=== PATIENT | female | born 1955 | race Caucasian/White ===

== ENCOUNTER 2019-06-13 06:51 | Inpatient (IN) | payer OTHER, SELFPAY ==
[2019-06-13] VITALS (8 sets, daily range): BP systolic 128–145; BP diastolic 65–85; PULSE 79–96; RESP 16–18; TEMP 36.8–37.6; O2SAT 95–99; BMI 21.4; BMI 21.5; BMI 22.4
--- NOTE | 2019-06-13 07:11 | US_ITS ---
STUDY: ABDOMINAL ULTRASOUND - RIGHT UPPER QUADRANT REASON FOR VISIT: Female, 64 years old PAIN TECHNIQUE: Ultrasound evaluation of the right upper quadrant was performed with real-time and static carrizales-scale imaging. TECHNICAL QUALITY: Adequate. COMPARISON: None. FINDINGS: Liver: The liver measures 11.4 cm. There is normal echogenicity of the liver. The bile ducts are within normal limits. There is hepatic color flow. The direction of portal flow is hepatopetal. There is no demonstrated mass lesion. Gallbladder: Normal distended gallbladder. The gallbladder wall measures 2.0 mm. There is a negative sonographic Huber''s sign. There is no pericholecystic fluid. There are no gallstones. Sludge is seen within the gallbladder lumen. Common Bile Duct (C.B.D.): The common bile duct measures 5.1 mm. Pancreas: Normal size of the head, body and tail of the pancreas. There is normal echogenicity of the pancreas. There is no demonstrated pancreatic mass or cyst. Right Kidney: Normal size of the right kidney. The right kidney measures 9.7 cm x 4 cm x 3.6 cm. Normal renal cortex. The right cortex measures 1.2 cm. There is a 1.1 cm x 1.1 cm x 1.1 cm cyst in the midportion. Adjacent to this, there is a 1.4 cm x 0.8 cm x 1.1 cm cyst. There is also evidence of multiple small intrarenal calculi the largest measuring 0.7 cm x 1.3 cm x 0.6 cm. There is no right hydronephrosis. US/Gallbladder IMPRESSION: Sludge is seen within the gallbladder lumen. Right renal cysts. Multiple small nonobstructing right intrarenal calculi. Electronically Signed: Kole Mann, at 8:58 EST , Service support ,
--- NOTE | 2019-06-13 07:12 | ED.VIS.GEN ---
History of Present Illness Chief Complaint: Abd Pain Informant: Patient, Significant Other Narrative: Patient presents for evaluation of right upper abdominal pain. She tells me that over the weekend she believes she was passing a kidney stone that she had pain on her left flank eventually moved to the periumbilical region and finally resolved leaving behind some right upper quadrant pain. She also notes that it travels to her epigastrium. She states she normally does not eat very much and she definitely has not felt like eating over the past 4 days. No fevers. No vomiting but nausea. She notes a decrease in her bowel movements but reports them still to be normal. She has had a prior tubal ligation but no other abdominal surgeries. History of hypertension, chronic kidney disease (last creatinine 1.83), and kidney stones. Patient has a bulk of medical history with her nausea throughout I see that she has a history of hypercalcemia. Last lab that I see in there shows a calcium level about 11-1/2. Past Medical History - Allergies and Home Meds Allergies/Adverse Reactions: Allergies acetaminophen [From Tylenol] Adverse Reaction (Verified 06/13/19 07:39) Other rapid heart rate Primary Care Physician: Tavo Reynoso,Out of [NON-STAFF] - Smoking Status: Never smoker Review of Systems General: Denies: Chills, Fever, Sweats Eyes: Denies: Visual changes - bilaterally, Diplopia ENT: Denies: Rhinorrhea, Sore throat Cardiovascular: Denies: Chest pain, Palpitations Respiratory: Denies: Dyspnea, Cough, Dyspnea on exertion Gastrointestinal: Reports: Abdominal pain, Nausea. Denies: Vomiting, Diarrhea, Melena, Hematochezia Genitourinary: Denies: Dysuria, Hematuria, Frequency Musculoskeletal: Denies: Back pain, Extremity Pain Skin: Denies: Rash, Wounds Neurological: Denies: Headache, Weakness, Numbness Physical Exam Vital Signs/Narrative: Vital Signs Temp Pulse Resp BP Pulse Ox 06/13/19 06:56 98.2 F 96 16 140/85 H 99 Inital Vital Signs reviewed: Yes General: Well nourished, Well developed, No Acute Distress Head: Normocephalic, Atraumatic Eyes: Perrl, EOMI ENT: Moist mucous membranes, No rhinorrhea Neck: Supple, Nontender Cardiovascular: Regular rate, Regular rhythm, No murmurs Respiratory: No distress, CTA bilaterally, Chest nontender Abdomen: Soft, Nondistended, Normal bowel sounds, Tender, Guarding, Rebound tenderness - Diffuse abdominal pain to palpation but most significant pain and guarding in the right upper quadrant Back: Nontender, Normal Inspection Extremities: Nontender, No edema Skin: Normal color, No rash Neurological: Alert, Oriented x3, Cranial nerves II-XII grossly intact, Normal Strength, Normal Sensation Psychological: Normal affect, Normal Mood Diagnostic/Tx/Re-eval - EKG Initial EKG Interpretation: Sinus Rhythm - Sinus rhythm at a rate of 83 without ectopy. There are no concerning features of ACS. - Medical Decision Making Patient's labs returned with a significantly elevated calcium level at about 13.5. EKG is negative. Gallbladder ultrasound shows sludge but no pericholecystic fluid and negative Huber's. CT of the pelvis demonstrates a 4.3 cm infrarenal aortic aneurysm. In speaking with the patient she now recalls that in 2015 she was admitted at [facility] with hypercalcemia. We are attempting to get records from that time.. Creatinine is 2 today which is off of her baseline of around 1.8 based on the labs she brought with her from December 2018. Patient received IV fluids and Lasix. Our plan is admission. Family is in agreement with this. ED Disposition - Plan for ED Patient: Disposition: Acute Care Hospital [facility] Diagnosis: Hypercalcemia, Abdominal pain Referrals: [facility] Doctor,Out of [NON-STAFF] -
[2019-06-13] MEDS: Morphine 2 MG/ML Syringe IV (07:31)
[2019-06-13] MEDS: Ondansetron 4 MG/2 ML Vial IV (07:32)
[2019-06-13 07:38] LABS: Mucous, Urine 0 SEEN /hpf (<or=2+); Red Blood Cells-Urine 0 SEEN /hpf (0-5); Squamous Epithelial Cells - UA 0 SEEN /hpf (5-10); White Blood Cells 0 SEEN /hpf (0-5)
[2019-06-13 07:41] LABS: Absolute Lymphocyte Count 0.85 X10^3/uL (0.83-4.51); Basophil# 0.01 X10^3/uL; Basophil% 0.1 % (0-1); Eosinophil# 0.13 X10^3/uL; Eosinophils% 1.6 % (0-5); Hematocrit 37.9 % (37-47); Hemoglobin 12.6 g/dL (12.0-15.0); Lymphocyte # 0.85 X10^3/ul (4.0); Lymphocyte % 10.1 % (19-41); Mean Corp Hgb Conc 33.2 g/dL (32-36); Mean Corpuscular Hgb 30.2 pg (27.0-32.0); Mean Corpuscular Volume 90.9 fL (81-99); Mean Platelet Vol. 9.4 fl (6.2-12.0); Monocyte# 0.35 X10^3/uL; Monocyte% 4.2 % (0-10); NRBC Flagged by Analyzer 0 % (0-5); Neutrophil % 83.5 % (47-70); Platelet Count 238 K/mm3 (150-450); RBC Distribution Width CV 11.5 % (11.6-14.6); RBC Distribution Width SD 38.5 fl (35.1-43.9); Red Blood Count 4.17 M/mm3 (4.2-5.4); White Blood Count 8.4 K/mm3 (4.4-11.0)
[2019-06-13 07:55] LABS: Color, Urine Yellow (Yellow); Glucose, Dipstick Normal (Normal); Ketone-Dipstick Negative (Negative); Leukocyte Esterase-Dipstick Negative /ul (Negative); Nitrite-Dipstick Negative (Negative); Occult Blood-Urine 25 /ul (Negative); Protein-Dipstick 30 mg/dl (Negative); Specific Gravity, Urine 1.015 (1.002-1.030); Urine Bilirubin Dipstick Negative (Negative); Urine Clarity Sl. Cloudy (Clear); Urine Urobilinogen Normal (Normal)
[2019-06-13 08:01] LABS: Bacteria RARE /hpf (None Seen)
[2019-06-13 08:02] LABS: AST(SGOT) 17 U/L (15-37); Alanine Aminotransfer ALT/SGPT 18 U/L (13-56); Alkaline Phosphatase 100 U/L (45-117); Anion Gap 6 (5-15); BUN 28 mg/dL (7-18); Bilirubin, Direct 0.22 mg/dL (0.00-0.30); Calcium,Total 13.3 mg/dL (8.5-10.1); Chloride 99 mmol/L (98-107); EST Glomerular Filtration Rate 27 mL/min (>60); Est Glom Filt Rate - Afr Amer 32 mL/min (>60); Globulin 4.9 g/dL (2.2-4.2); Glucose 98 mg/dL (74-106); Lipase 91 U/L (73-393); Potassium 3.7 mmol/L (3.5-5.1); Protein, Total 7.9 g/dL (6.4-8.2); Sodium Level 133 mmol/L (136-145)
[2019-06-13] MEDS: 0.9% Normal Saline 1,000 ML 125 ML IV ×2 (08:16→11:56)
--- NOTE | 2019-06-13 08:23 | CT_ITS ---
STUDY: CT ABDOMEN AND PELVIS WITHOUT CONTRAST REASON FOR EXAM: Female, 64 years old. UPPER ABD PAIN, CKD, HX AAA RADIATION DOSAGE (If Supplied By Facility): CTDIvol = ( 6.25 ) mGy, DLP = ( 293.35 ) mGycm TECHNIQUE: Transaxial images were obtained from the dome of the diaphragm to the symphysis pubis without oral contrast, and without intravenous contrast. Sagittal and coronal images were reconstructed. Individualized dose optimization techniques were used for this CT. COMPARISON: None. FINDINGS: Mild increased linear markings at the lung bases suggestive of linear atelectasis and/or scarring. Coronary artery calcification. Normal liver. Findings suggestive of sludge or multiple tiny gallstones along the dependent portion of the gallbladder. Normal spleen. Normal pancreas. Normal bilateral adrenal glands. There are multiple nonobstructive right intrarenal calculi. There is a 2.6 cm x 2.1 cm cyst in the medial aspect of the kidney. There is marked atrophy of the left kidney with multiple left intrarenal calcifications. Normal visualized stomach. Normal small intestine. Normal colon. The appendix is visualized and appears normal. There is diffuse atherosclerotic calcification of the abdominal aorta. There is evidence of a fusiform infrarenal abdominal aortic aneurysm with a transverse dimension of 4.34 cm. Dilatation of the common iliac arteries bilaterally. Normal inferior vena cava. Normal retroperitoneum. Normal urinary bladder. There is a 7.1 cm x 7.5 cm soft tissue mass containing fat in the left adnexa. This is in keeping with the dermoid cyst. Phleboliths are seen within the pelvis. Normal abdominal wall. Normal osseous structures. CT/Abdomen/Pelvis without Cont IMPRESSION: Sludge or tiny gallstones within the gallbladder lumen. Marked atrophy of the left kidney. Bilateral renal calcifications and cyst in the right kidney. 7.1 cm x 7.5 cm mixed soft tissue density in the left adnexa containing fat as well. A dermoid should BE ruled out. 4.3 cm fusiform infrarenal abdominal aortic aneurysm. Electronically Signed: Kole Mann, at 9:08 EST , Service support ,
--- NOTE | 2019-06-13 08:25 | EKG12_ITS ---
Test Reason : ABD PAIN Blood Pressure : / mmHG Vent. Rate : 083 BPM Atrial Rate : 083 BPM P-R Int : 158 ms QRS Dur : 098 ms QT Int : 344 ms P-R-T Axes : 068 024 035 degrees QTc Int : 404 ms Normal sinus rhythm Normal ECG Confirmed by DEAN EUCEDA, JOSEPH ([id number]), research editor LEVAR VILLANUEVA ([id number]) on 06/14/2019 8:02:12 AM Referred By: Balta Gayle Confirmed By:MELANY MORAN MD
[2019-06-13] MEDS: 0.9% Normal Saline 1,000 ML 999 ML IV (09:00)
--- NOTE | 2019-06-13 09:52 | NURSING ---
DR CAROLE AZAR
[2019-06-13] MEDS: Furosemide 40 MG/4 ML Vial IV (10:00)
--- NOTE | 2019-06-13 10:03 | NURSING ---
PCU HYPERCALCEMIA CAROLE
--- NOTE | 2019-06-13 10:04 | NURSING ---
[id number] CALLED [facility], TALKED TO GORDON. ASKED FOR CALCIUM LEVELS FROM ABOUT 4 YRS AGO.
[2019-06-13] MEDS: amLODIPine 5 MG Tablet PO (11:56)
--- NOTE | 2019-06-13 12:31 | US_ITS ---
STUDY: ULTRASOUND OF THE FEMALE PELVIS - COMPLETE REASON FOR EXAM: Female, 64 years old. LEFT ADNEXAL CYSTIC AREA SEEN ON CT LMP: TECHNIQUE: Transabdominal TECHNICAL QUALITY: Adequate. COMPARISON: CT scan of the same day. FINDINGS: The CT scan of the same day was reviewed and it shows a 7.5 cm pelvic mass characteristic of dermoid. In these cases, ultrasound does not add any more accurate information. Confirmation of 7.6 cm mixed echogenicity mass of the left ovary/adnexa consistent with the known dermoid. The uterus is anteverted and is in a midline position. The uterus measures 6.2 x 4.8 x 2.8 cm. Normal uterine cervix. The endometrium measures 4 mm in thickness, and is hyperechoic. There is no demonstrated endometrial mass. There is no demonstrated myometrial mass. I.U.D. - The patient does not have an I.U.D. The right ovary is visualized. The right ovary measures 2.6 x 2.6 x 1.6 cm. There is no right ovarian cyst or ovarian mass. There is no visualized right adnexal mass or complex lesion. There is normal arterial and normal venous vascularity. There is no fluid in the cul-de-sac. Normal bladder contour. US/Pelvic (Non ) IMPRESSION: Confirmation of a 7.6 cm mixed echogenicity mass of the left ovary/adnexa consistent with the CT scan diagnosis of dermoid. In general, the CT appearance is characteristic and ultrasound is less specific and accurate. Normal appearance of the uterus and right ovary. Electronically Signed: Yang Russ MD at 15:22 EST , Service support ,
--- NOTE | 2019-06-13 12:32 | PCM.HP.STD ---
History of Present Illness Date of Admission: 06/13/19 Chief Complaint: abdominal pain The patient is a 64 year old F who was in normal state of health and then had abdominal pain. Pain was consistent with when she has had kidney stones before. Presented to the emergency room and underwent right upper quadrant ultrasound as well as CAT scan. CAT scan did not show any stones in the ureter but did show bilateral renal calcifications and cyst in the right kidney. A 7.1 x 7.5 cm mixed soft tissue density in the left adnexa containing fat. It did show a 4.3 cm fusiform infrarenal abdominal aortic aneurysm. Additionally, patient had lab work that showed a calcium of 13.3. Patient received Lasix as well as IV fluids. Patient subsequent being admitted for hypercalcemia. Patient is not noticing any tremors, no confusion. Patient has had a history of hypercalcemia without defined cause. Has been admitted for that at least couple times. Patient denies any malignancy though denies ever having had any kind of screening, such as colonoscopy or mammograms. Patient, when brought up, is unaware of any hyperparathyroidism. [] Past Medical History Medical History: Medical History (Last Updated 06/13/19 @ 12:[address] Blata Gayle, DO) Hypercalcemia E83.52 HTN (hypertension) I10 Allergies acetaminophen [From Tylenol] Adverse Reaction (Verified 06/13/19 07:39) Other rapid heart rate Home Medications: Ambulatory Orders Medication Instructions Recorded Amlodipine [Norvasc] 5 mg PO DAILY 06/13/19 Garlic 1 ea PO DAILY 06/13/19 Lactobacillus Combo No.10 PO BID 06/13/19 [Probiotic] Losartan Potassium [Cozaar] 50 mg PO DAILY 06/13/19 Taiban-3/Dha/Epa/Fish Oil [Taiban 3 1 ea PO BID 06/13/19 500 Softgel] Lives: Spouse/ Significant Other Smoking Status: Never smoker Tobacco Use: Non-smoker Alcohol: None Drugs: None - *Family History Maternal History Items: - - no malignancy Review of Systems Constitutional: Denies: Anorexia, Chills, Fever, Night Sweats Eyes: Denies: Blurred vision, Double vision HEENT: Denies: Head Aches, Sinus Congestion, Sinus Drainage Cardiovascular: Denies: Chest Pain, Palpitations Respiratory: Denies: Cough, Shortness of breath at rest, Sputum production Gastrointestinal: Reports: Abdominal Pain. Denies: Nausea, Vomiting Genitourinary: Denies: Dysuria Musculoskeletal: Denies: Joint Pain, Joint Tenderness Hematologic/ Lymphatic: Denies: Easy Bruising, Easy Bleeding, Hx of blood clot Comment: All review of systems were negative except as mentioned above in the history of present illness and the other review of systems. VTE Information - Inpt Only VTE Present on Admission: No VTE Mechan Device Prophylaxis: None VTE Pharm Prophylaxis ordered?: Yes Patient Problems: Active and Suspected Problems Hypercalcemia (Acute) Abdominal pain (Acute) - Physical Exam Vitals/I&O's: Vital Signs Temp Pulse Resp BP Pulse Ox 36.9 C 86 16 128/73 H 99 06/13/19 11:00 06/13/19 11:14 06/13/19 11:00 06/13/19 11:00 06/13/19 11:00 Oxygen Delivery Method Room Air Weight: 61 kg Body Mass Index (BMI) 22.4 Intake and Output for Last 24 Hours 06/11/19 06/12/19 06/13/19 23:59 23:59 23:59 Intake Total 1581.67 / 1581.67 Balance 1581.67 / 1581.67 General: Alert, Cooperative, No apparent distress, Well developed, Well nourished HEENT: Atraumatic, Normocephalic Oral: Moist Mucosa, No Gingival or Mucosal Lesions/ Ulcerations Neck: No Nodes, Thyroid Normal Size and Texture Lungs: Clear to auscultation, Normal air movement, No rhonchi, No wheeze, No rales Cardiovascular: Regular rate, Regular Rhythm, Normal S1, Normal S2, No murmurs Abdomen: Bowel Sounds Present, Soft, Non Tender, Non-Distended, No Hepato-splenomegaly Extremities: No edema, No Calf Tenderness Skin: No rashes, No breakdown Musculoskeletal: No Tenderness to Palpation of Joints or Extremities, No Muscle Wasting Neurological: Coordination normal, - - DTR 3/4 throughout Psych/Mental Status: Normal Affect, Appropriate Laboratory Results 06/13/19 07:20: WBC 8.4, RBC 4.17 L, Hgb 12.6, Hct 37.9, MCV 90.9, MCH 30.2, MCHC 33.2, RDW Std Deviation 38.5, RDW Coeff of David 11.5 L, Plt Count 238, MPV 9.4, Immature Gran % (Auto) 0.500, Neut % (Auto) 83.5 H, Lymph % (Auto) 10.1 L, Aurora % (Auto) 4.2, Eos % (Auto) 1.6, Baso % (Auto) 0.1, Absolute Neuts (auto) 7.0, Absolute Lymphs (auto) 0.85, Nucleated RBC % 0 06/13/19 07:20: Sodium 133 L, Potassium 3.7, Chloride 99, Carbon Dioxide 28.0, Anion Gap 6, BUN 28 H, Creatinine 2.00 H, Estim Creat Clear Calc 26.60, Est GFR (MDRD) Af Amer 32 L, Est GFR (MDRD) Non-Af 27 L, BUN/Creatinine Ratio 14.0, Glucose 98, Calcium 13.3 H*, Total Bilirubin 0.90, Direct Bilirubin 0.22, AST 17, ALT 18, Alkaline Phosphatase 100, Total Protein 7.9, Albumin 3.0 L, Globulin 4.9 H, Lipase 91 06/13/19 07:20: PTH Intact 54.0 06/13/19 07:37: Urine Color Yellow, Urine Clarity Sl. Cloudy, Urine pH 6.0, Ur Specific [place] 1.015, Urine Protein 30 H, Urine Glucose (UA) Normal, Urine Ketones Negative, Urine Occult Blood 25 H, Urine Nitrite Negative, Urine Bilirubin Negative, Urine Urobilinogen Normal, Ur Leukocyte Esterase Negative, Urine RBC 0 SEEN, Urine WBC 0 SEEN, Ur Squamous Epith Cells 0 SEEN, Urine Bacteria RARE, Urine Mucus 0 SEEN Current Medications Acetaminophen (Tylenol) 650 mg PO Q6H PRN PRN PRN Reason: Pain Score 1-10/Temp > 100.7 F Amlodipine Besylate (Norvasc) 5 mg PO DAILY [facility] Last Admin: 06/13/19 11:56 Dose: 5 mg Documented by: Enoxaparin Sodium (Lovenox) 30 mg SC DAILY [facility] Last Admin: 06/13/19 11:56 Dose: Not Given Documented by: Glucagon () 1 mg IM .X1 PRN PRN Reason: Hypoglycemia Sodium Chloride () 1,000 mls @ 200 mls/hr IV .Q5H [facility] Last Admin: 06/13/19 11:56 Dose: 125 mls/hr Documented by: Sodium Chloride () 250 mls @ 15 mls/hr IV .[id number] PRN PRN Reason: Saline Flush Sodium Chloride () 250 mls @ 15 mls/hr IV .[id number] PRN PRN Reason: Additional IVPB Infusion Dextrose (Dextrose 10%-Water) 250 mls @ 999 mls/hr IV .Q16M PRN; Protocol PRN Reason: HYPOGLYCEMIA Sodium Chloride () 10 - 40 ml IV UD PRN PRN Reason: SALINE FLUSH Assessment/Plan All Active Problems Hypercalcemia (Acute) Abdominal pain (Acute) 1. Hypercalcemia acute on chronic. Reviewed records from [facility] where the patient, back in 2015 had levels that were 11 and 12. Patient had also followed up in [place] with a marking machine tender where her potassium levels were around 11 which was felt to be chronic. Back in 2018, patient had PTH which was 65.9 which was within the normal reference range. At that time she also had a urine protein of 27.1, no reference range provided further labs. Patient did receive IV fluids and furosemide in the emergency room. We will continue with IV fluids at 200 cc/h. Discussed with Dr. Gomez, of nephrology, recommended a UPEP, SPEP, 125 hydroxy vitamin D, 25 hydroxy vitamin D. Did explain to the patient that she will require further routine screening test, such as colonoscopy and mammogram but to be done as outpatient. Is unclear the etiology of her hypercalcemia. Previously had been due to vitamin D supplementation but patient denies taking any further vitamin D. Patient was taking multivitamin but stopped about 6 months ago. 2. Acute kidney injury: IV fluids. Monitor. 3. Adnexal mass: May be a dermoid cyst. Check a pelvic ultrasound. Follow-up with gynecology as outpatient. 4. VTE prophylaxis: Moderate risk. Enoxaparin. 5. Advanced care planning: Discussed with the patient and her . Patient wishes to be full CODE STATUS at this time. Inpatient E&M: [id number] Init Hosp L3
[2019-06-13 13:55] LABS: Anion Gap 5 (5-15); BUN 28 mg/dL (7-18); BUN/Creat Ratio 14.4 RATIO (10-20); Calcium,Total 12.5 mg/dL (8.5-10.1); Chloride 101 mmol/L (98-107); Creatinine, Serum 1.94 mg/dL (0.55-1.02); EST Glomerular Filtration Rate 28 mL/min (>60); Est Glom Filt Rate - Afr Amer 33 mL/min (>60); Estimated Creatinine Clearance 26.36 ml/min; Glucose 131 mg/dL (74-106); Potassium 3.4 mmol/L (3.5-5.1); Sodium Level 136 mmol/L (136-145)
[2019-06-13 13:59] LABS: Vitamin D,25 Hydroxy 28.4 ng/mL
[2019-06-13] MEDS: oxyCODONE 5 MG Tablet PO (14:20)
--- NOTE | 2019-06-13 15:53 | CON.PCM_ITS ---
Consultation - Renal 06/13/19 PCP/ Referring MD: Requesting physician: Balta Gayle MD Primary care physician: MAE FATIMA Reason for Consultation:: hypercalcemia, CKD stage 4 - History of Present Illness History of Present Illness: The patient is a 64 year old F admitted for left flank pain radiating down to left groin. Denied hematuria, dysuria. Thinks she may have passed a stone. She has a history of kidney stones, CKD and hypercalcemia hospitalized in 2016 in [place] for it. She thinks she may have had lithotripsy 32 years ago but not sure of details. She had CKD stage 4 back in 2016 improved to CKD stage 3. Creatinine 2.0 on admit to 1.94 today with iv hydration. PTH 54 during current admission with vit D 25 OH 28. Vit D1.25 pending. She states she loves salt. She was seen by diesel engine fitter Dr. Preciado in [place], last seen 2 years ago. Etiology for hypercalcemia was thought due to vit D supplements. She has not been on supplements since. She is on amlodipine and losartan for hypertension. CAT scan done in ER did not show any stones in the ureter but did show bilateral renal calcifications and cyst in the right kidney. A 4.3 fusiform AAA noted. She had a whole body CT years ago where the AAA was reported. Blood work showed calcium of 13.3 treated with Lasix and V fluids. Patient is not noticing any tremors, no confusion. Denies polyuria, polydipsia. Denies history of malign mark. - Allergies Allergies: Allergies acetaminophen [From Tylenol] Adverse Reaction (Verified 06/13/19 07:39) Other rapid heart rate - Current Medications Current Medications: Current Medications Acetaminophen (Tylenol) 650 mg PO Q6H PRN PRN PRN Reason: Pain Score 1-10/Temp > 100.7 F Amlodipine Besylate (Norvasc) 5 mg PO DAILY [facility] Last Admin: 06/13/19 11:56 Dose: 5 mg Documented by: Enoxaparin Sodium (Lovenox) 30 mg SC DAILY [facility] Last Admin: 06/13/19 11:56 Dose: Not Given Documented by: Glucagon () 1 mg IM .X1 PRN PRN Reason: Hypoglycemia Sodium Chloride () 1,000 mls @ 200 mls/hr IV .Q5H [facility] Last Infusion: 06/13/19 13:47 Dose: 200 mls/hr Documented by: Sodium Chloride () 250 mls @ 15 mls/hr IV .[id number] PRN PRN Reason: Saline Flush Sodium Chloride () 250 mls @ 15 mls/hr IV .[id number] PRN PRN Reason: Additional IVPB Infusion Dextrose (Dextrose 10%-Water) 250 mls @ 999 mls/hr IV .Q16M PRN; Protocol PRN Reason: HYPOGLYCEMIA Oxycodone HCl (Oxyir) 5 mg PO Q4H PRN PRN PRN Reason: Pain Score 4-10/10 Last Admin: 06/13/19 14:20 Dose: 5 mg Documented by: Sodium Chloride () 10 - 40 ml IV UD PRN PRN Reason: SALINE FLUSH - Social History Smoking Status: Never smoker Alcohol: None Drugs: None - Family History Maternal History Items: - - no malignancy Paternal History Items: Hypertension Review of Systems Constitutional: Reports: Chills. Denies: Anorexia, Fever, Weakness Eyes: Denies: Blurred vision Cardiovascular: Reports: Edema. Denies: Chest Pain, Syncope Respiratory: Denies: Cough, Shortness of Breath Gastrointestinal: Reports: Abdominal Pain. Denies: Constipation, Diarrhea, Nausea, Vomiting Genitourinary: Reports: - - left flank pain. Denies: Dysuria, Hematuria Musculoskeletal: Reports: Back Pain - left flank Skin: Denies: Rash Neurological: Denies: Balance problems, Tremor, Seizures Psychiatric: Denies: Anxiety, Depression Endocrine: Denies: Polydipsia, Polyuria Hematologic/ Lymphatic: Denies: Anemia Patient Problems: Active and Suspected Problems (Last Updated 06/13/19 @ 12:[address] Balta Gayle, DO) Hypercalcemia (Acute) Abdominal pain (Acute) - Physical Exam Vitals/I&O's: Vital Signs Temp Pulse Resp BP Pulse Ox 98.5 F 89 16 128/73 H 99 06/13/19 11:00 06/13/19 15:05 06/13/19 11:00 06/13/19 11:00 06/13/19 11:00 Oxygen Delivery Method Room Air Weight: 61 kg Body Mass Index (BMI) 22.4 Intake and Output for Last 24 Hours 06/11/19 06/12/19 06/13/19 23:59 23:59 23:59 Intake Total 181.92 / 181.92 Balance 1811. / 1811. General: Alert, Oriented x3, Cooperative, No apparent distress HEENT: Atraumatic, PERRLA, EOMI Neck: Supple Lungs: Clear to auscultation Cardiovascular: Regular rate Abdomen: Bowel Sounds Present, Soft, Non Tender, Non-Distended Extremities: No edema Skin: No rashes Musculoskeletal: No Tenderness to Palpation of Joints or Extremities, No Muscle Wasting Neurological: Cranial nerves II-XII grossly intact Psych/Mental Status: Normal Affect, Appropriate, Alert and oriented to time, place, person, mood and affect Laboratory Results 06/13/19 07:20: WBC 8.4, RBC 4.17 L, Hgb 12.6, Hct 37.9, MCV 90.9, MCH 30.2, MCHC 33.2, RDW Std Deviation 38.5, RDW Coeff of David 11.5 L, Plt Count 238, MPV 9.4, Immature Gran % (Auto) 0.500, Neut % (Auto) 83.5 H, Lymph % (Auto) 10.1 L, [place] % (Auto) 4.2, Eos % (Auto) 1.6, Baso % (Auto) 0.1, Absolute Neuts (auto) 7.0, Absolute Lymphs (auto) 0.85, Nucleated RBC % 0 06/13/19 07:20: Sodium 133 L, Potassium 3.7, Chloride 99, Carbon Dioxide 28.0, Anion Gap 6, BUN 28 H, Creatinine 2.00 H, Estim Creat Clear Calc 26.60, Est GFR (MDRD) Af Amer 32 L, Est GFR (MDRD) Non-Af 27 L, BUN/Creatinine Ratio 14.0, Glucose 98, Calcium 13.3 H*, Total Bilirubin 0.90, Direct Bilirubin 0.22, AST 17, ALT 18, Alkaline Phosphatase 100, Total Protein 7.9, Albumin 3.0 L, Globulin 4.9 H, Lipase 91 06/13/19 07:20: PTH Intact 54.0 06/13/19 07:37: Urine Color Yellow, Urine Clarity Sl. Cloudy, Urine pH 6.0, Ur Specific Ewing 1.015, Urine Protein 30 H, Urine Glucose (UA) Normal, Urine Ketones Negative, Urine Occult Blood 25 H, Urine Nitrite Negative, Urine Bilirubin Negative, Urine Urobilinogen Normal, Ur Leukocyte Esterase Negative, Urine RBC 0 SEEN, Urine WBC 0 SEEN, Ur Squamous Epith Cells 0 SEEN, Urine Ba cteria RARE, Urine Mucus 0 SEEN 06/13/19 13:11: Total Protein (PEP) Pending, Albumin (PEP) Pending, Globulin (PEP) Pending, Albumin/Globulin (PEP) Pending, Subvd-0-Rxkgpuceo Pending, Nafwb-6-Vaeubqvle Pending, Beta Globulins Pending, Gamma Globulins Pending, M- Arcadio Pending, Urine Total Protein Pending, Urine Albumin Pending, U Xbiox-0-Jdyeydjk Pending, U Xezpo-0-Slndgrhq Pending, U Beta Globulin Pending, U Gamma Globulin Pending, U PEP M-Arcadio Pending 06/13/19 13:17: Sodium 136, Potassium 3.4 L, Chloride 101, Carbon Dioxide 30.0, Anion Gap 5, BUN 28 H, Creatinine 1.94 H, Estim Creat Clear Calc 26.36, Est GFR (MDRD) Af Amer 33 L, Est GFR (MDRD) Non-Af 28 L, BUN/Creatinine Ratio 14.4, Glucose 131 H, Calcium 12.5 H 06/13/19 13:18: Ionized Calcium Pending 06/13/19 13:18: Vitamin D 25-Hydroxy 28.4 06/13/19 13:18: Vit D 1,25-Dihydroxy Pending Clinical Impression(s) from Imaging Studies Gallbladder Ultrasound 06/13/19 07:11 IMPRESSION: Sludge is seen within the gallbladder lumen. Right renal cysts. Multiple small nonobstructing right intrarenal calculi. Electronically Signed: Kole Mann, at 8:58 EST , Service support , Abdomen/Pelvis CT 06/13/19 08:23 IMPRESSION: Sludge or tiny gallstones within the gallbladder lumen. Marked atrophy of the left kidney. Bilateral renal calcifications and cyst in the right kidney. 7.1 cm x 7.5 cm mixed soft tissue density in the left adnexa containing fat as well. A dermoid should BE ruled out. 4.3 cm fusiform infrarenal abdominal aortic aneurysm. Electronically Signed: Kole Mann, at 9:08 EST , Service support , Pelvis Ultrasound 06/13/19 12:31 IMPRESSION: Confirmation of a 7.6 cm mixed echogenicity mass of the left ovary/adnexa consistent with the CT scan diagnosis of dermoid. In general, the CT appearance is characteristic and ultrasound is less specific and accurate. Normal appearance of the uterus and right ovary. Electronically Signed: Yang Russ MD at 15:22 EST , Service support , Current Medications Acetaminophen (Tylenol) 650 mg PO Q6H PRN PRN PRN Reason: Pain Score 1-10/Temp > 100.7 F Amlodipine Besylate (Norvasc) 5 mg PO DAILY [facility] Last Admin: 06/13/19 11:56 Dose: 5 mg Documented by: Enoxaparin Sodium (Lovenox) 30 mg SC DAILY [facility] Last Admin: 06/13/19 11:56 Dose: Not Given Documented by: Glucagon () 1 mg IM .X1 PRN PRN Reason: Hypoglycemia Sodium Chloride () 1,000 mls @ 200 mls/hr IV .Q5H [facility] Last Infusion: 06/13/19 13:47 Dose: 200 mls/hr Documented by: Sodium Chloride () 250 mls @ 15 mls/hr IV .[id number] PRN PRN Reason: Saline Flush Sodium Chloride () 250 mls @ 15 mls/hr IV .[id number] PRN PRN Reason: Additional IVPB Infusion Dextrose (Dextrose 10%-Water) 250 mls @ 999 mls/hr IV .Q16M PRN; Protocol PRN Reason: HYPOGLYCEMIA Oxycodone HCl (Oxyir) 5 mg PO Q4H PRN PRN PRN Reason: Pain Score 4-10/10 Last Admin: 06/13/19 14:20 Dose: 5 mg Documented by: Sodium Chloride () 10 - 40 ml IV UD PRN PRN Reason: SALINE FLUSH Assessment/Plan All Active Problems (Last Updated 06/13/19 @ 12:[address] Balta Gayle, DO) Hypercalcemia (Acute) Abdominal pain (Acute) 1. Hypercalcemia unclear etiology. Check 24h urine calcium. Check vit d 1,25 OH, vit D 25 OH 28, PTH 54. Evaluate for occult malignancy. Check pthrp. Avoid vitamin D. Continue with hydration. Hospitalized in 2016 for same due to hypervitaminosis. However, pt has not been on vitamins since. Check SPEP, UPEP 2. CKD stage 4 suspect due to nephrocalcinosis. 3. HTN stable 4. Left flank pain may be from stone, nephrolithiasis. Sodium restrict to prevent stone formation and hydrate to maintain 2L urine output daily 5. AAA fusiform 4.3cm on CT. Will need f/u 6. left adnexal mass, primary care to f/u
[2019-06-13] MEDS: 0.9% Normal Saline 1,000 ML 200 ML IV (19:49)
[2019-06-14] VITALS (7 sets, daily range): BP systolic 122–128; BP diastolic 65–77; PULSE 68–77; RESP 18; TEMP 36.9–37.7; O2SAT 97–98
[2019-06-14] MEDS: 0.9% Normal Saline 1,000 ML 200 ML IV ×3 (00:49→11:14)
[2019-06-14 06:03] LABS: Absolute Lymphocyte Count 1.16 X10^3/uL (0.83-4.51); Absolute Neutrophil Count 4.7 X10^3/uL (2.0-7.7); Basophil# 0.01 X10^3/uL; Basophil% 0.2 % (0-1); Eosinophil# 0.25 X10^3/uL; Eosinophils% 3.8 % (0-5); Hematocrit 31.8 % (37-47); Hemoglobin 10.4 g/dL (12.0-15.0); Lymphocyte # 1.16 X10^3/ul (4.0); Lymphocyte % 17.8 % (19-41); Mean Corp Hgb Conc 32.7 g/dL (32-36); Mean Corpuscular Hgb 30.6 pg (27.0-32.0); Mean Corpuscular Volume 93.5 fL (81-99); Mean Platelet Vol. 9.2 fl (6.2-12.0); Monocyte# 0.37 X10^3/uL; Monocyte% 5.7 % (0-10); NRBC Flagged by Analyzer 0 % (0-5); Neutrophil # 4.71 X10^3/uL (2.7-7.7); Neutrophil % 72.2 % (47-70); Platelet Count 197 K/mm3 (150-450); RBC Distribution Width CV 11.8 % (11.6-14.6); RBC Distribution Width SD 39.8 fl (35.1-43.9); White Blood Count 6.5 K/mm3 (4.4-11.0)
[2019-06-14 06:18] LABS: Anion Gap 3 (5-15); BUN 25 mg/dL (7-18); BUN/Creat Ratio 13.5 RATIO (10-20); Calcium,Total 11.8 mg/dL (8.5-10.1); Chloride 105 mmol/L (98-107); Creatinine, Serum 1.85 mg/dL (0.55-1.02); EST Glomerular Filtration Rate 29 mL/min (>60); Est Glom Filt Rate - Afr Amer 35 mL/min (>60); Estimated Creatinine Clearance 27.64 ml/min; Glucose 87 mg/dL (74-106); Potassium 3.7 mmol/L (3.5-5.1); Sodium Level 138 mmol/L (136-145)
[2019-06-14] MEDS: oxyCODONE 5 MG Tablet PO (08:53)
[2019-06-14] MEDS: amLODIPine 5 MG Tablet PO (08:54)
--- NOTE | 2019-06-14 11:30 | CASEMGMT ---
RN CM COMMISSION ASSOCIATE CM to room to meet with patient for initial transition planning/care coordination assessment. RN EMILE introduced self and role at [facility]. Pt voices understanding and consents to assessment at this time. Pt resting in bed in no distress at this time. Family members at bedside and pt agreeable to them being present during assessment. Pt is A/O at this time and answers all questions appropriately. Care providers, pharmacy, and demographics verified at this time. PCP: JENNIFER Peres Specialists: Has seen upholstered goods crafter in [place] in the past--Dr Preciado. Pt states she wishes to start seeing Dr Gomez. DIRECTOR OF DEMENTIA OPERATIONS EMILE, Alina Headley, made aware. Preferred Pharmacy: [facility] Insurance: [employer] is listed. Pt states she is self-pay. Pt made aware Brennen Arteaga Liaison, will be in to talk with her today. Prescription Benefit: No Living Will/HPOA: [facility] does not have LW or HCPOA . Interested in more information but does not want to talk with SW at this time to complete paperwork, stating she wishes to discuss this with her first. Provided information on advanced directives and given Social Service rac card with number to call if chooses in the future to utilize [facility] social work for advanced directive completion. LNOK: , Aquiles Chaparro. 11 adult children Living Arrangements: Lives with her . 19-yr-old daughter and 23-yr-old son live with them. Independent w/ADL's and IADL's. Transportation: Hire drivers DME: Denies using any DME and denies needs. HHC/SNF: No history of either. No needs identified. Pt wishes to return home and states has no concerns with going home at time of discharge. CM to follow for any discharge planning/needs. Pt voices no concerns/needs at this time. Advised pt to ask for CM if any further questions/concerns/needs arise. Voices understanding. PLAN: Home w/spousal support and discharge plans in place. John SIDDIQI RN, CM
--- NOTE | 2019-06-14 13:30 | PN.RENAL_ITS ---
Patient Problems: Active and Suspected Problems (Last Updated 06/13/19 @ 12:[address] Balta Gayle, DO) Nephrolithiasis (Acute) Hypercalcemia (Acute) Abdominal pain (Acute) Subjective: feeling better, creatinine slightly improved to 1.85, calcium 11.8. 24h urine in progress. Continue with iv fluids until discharged to home. Ok to dc to home after urine collection complete. - Physical Exam Vitals/I&O's: Vital Signs Temp Pulse Resp BP Pulse Ox 98.9 F 77 18 128/74 H 98 06/14/19 08:00 06/14/19 08:00 06/14/19 08:00 06/14/19 08:00 06/14/19 08:00 Oxygen Delivery Method Room Air Weight: 61 kg Body Mass Index (BMI) 22.4 Intake and Output for Last 24 Hours 06/12/19 06/13/19 06/14/19 23:59 23:59 23:59 Intake Total 4881.67 / 4881.67 4550 / 4550 Output Total 1675 / 1675 1400 / 1400 Balance 3206.67 / 3206.67 3150 / 3150 General: Alert, Oriented x3 Lungs: Clear to auscultation Cardiovascular: Regular rate Abdomen: Bowel Sounds Present, Soft, Non Tender, Non-Distended Extremities: No edema Laboratory Results 06/13/19 13:11: Total Protein (PEP) Pending, Albumin (PEP) Pending, Globulin (PEP) Pending, Albumin/Globulin (PEP) Pending, Gtnmy-5-Nnntourvh Pending, Vzkfs-9-Iodoxtifn Pending, Beta Globulins Pending, Gamma Globulins Pending, M- Arcadio Pending, Urine Total Protein Pending, Urine Albumin Pending, U Alpha-1-Gl obulin Pending, U Iflbn-9-Zoioiblg Pending, U Beta Globulin Pending, U Gamma Globulin Pending, U PEP M-Arcadio Pending 06/13/19 13:17: Sodium 136, Potassium 3.4 L, Chloride 101, Carbon Dioxide 30.0, Anion Gap 5, BUN 28 H, Creatinine 1.94 H, Estim Creat Clear Calc 26.36, Est GFR (MDRD) Af Amer 33 L, Est GFR (MDRD) Non-Af 28 L, BUN/Creatinine Ratio 14.4, Glucose 131 H, Calcium 12.5 H 06/13/19 13:18: Vitamin D 25-Hydroxy 28.4 06/14/19 05:43: WBC 6.5, RBC 3.40 L, Hgb 10.4 L, Hct 31.8 L, MCV 93.5, MCH 30.6, MCHC 32.7, RDW Std Deviation 39.8, RDW Coeff of David 11.8, Plt Count 197, MPV 9.2, Immature Gran % (Auto) 0.300, Neut % (Auto) 72.2 H, Lymph % (Auto) 17.8 L, [place] % (Auto) 5.7, Eos % (Auto) 3.8, Baso % (Auto) 0.2, Absolute Neuts (auto) 4.7, Absolute Lymphs (auto) 1.16, Nucleated RBC % 0 06/14/19 05:43: Sodium 138, Potassium 3.7, Chloride 105, Carbon Dioxide 30.0, Anion Gap 3 L, BUN 25 H, Creatinine 1.85 H, Estim Creat Clear Calc 27.64, Est GFR (MDRD) Af Amer 35 L, Est GFR (MDRD) Non-Af 29 L, BUN/Creatinine Ratio 13.5, Glucose 87, Calcium 11.8 H 06/14/19 05:43: Miscellaneous Test Pending Current Medications Acetaminophen (Tylenol) 650 mg PO Q6H PRN PRN PRN Reason: Pain Score 1-10/Temp > 100.7 F Amlodipine Besylate (Norvasc) 5 mg PO DAILY [facility] Last Admin: 06/14/19 08:54 Dose: 5 mg Documented by: Enoxaparin Sodium (Lovenox) 30 mg SC DAILY [facility] Last Admin: 06/14/19 09:32 Dose: Not Given Documented by: Glucagon () 1 mg IM .X1 PRN PRN Reason: Hypoglycemia Sodium Chloride () 1,000 mls @ 200 mls/hr IV .Q5H [facility] Last Admin: 06/14/19 11:14 Dose: 200 mls/hr Documented by: Sodium Chloride () 250 mls @ 15 mls/hr IV .[id number] PRN PRN Reason: Saline Flush Sodium Chloride () 250 mls @ 15 mls/hr IV .[id number] PRN PRN Reason: Additional IVPB Infusion Dextrose (Dextrose 10%-Water) 250 mls @ 999 mls/hr IV .Q16M PRN; Protocol PRN Reason: HYPOGLYCEMIA Oxycodone HCl (Oxyir) 5 mg PO Q4H PRN PRN PRN Reason: Pain Score 4-10/10 Last Admin: 06/14/19 08:53 Dose: 5 mg Documented by: Sodium Chloride () 10 - 40 ml IV UD PRN PRN Reason: SALINE FLUSH Medical Necessity - Tobacco Use Smoking Status: Never smoker Tobacco Use: Non-smoker Assessment/Plan All Active Problems (Last Updated 06/13/19 @ 12:[address] Balta Gayle, DO) Nephrolithiasis (Acute) Hypercalcemia (Acute) Abdominal pain (Acute) 1. Hypercalcemia unclear etiology. Check 24h urine calcium. Check vit d 1,25 OH, vit D 25 OH stable at 28, PTH 54. Evaluate for occult malignancy. Check pthrp. Avoid vitamin D. Continue with hydration. Check SPEP, UPEP. Follow up in office in 1-2 wks with labs next week 2. CKD stage 4 suspect due to nephrocalcinosis. Creatinine 1.85 eGFR 29cc/min 3. HTN stable 4. Left flank pain may be from stone, nephrolithiasis. Sodium restrict to prevent stone formation and hydrate to maintain 2L urine output daily 5. AAA fusiform 4.3cm on CT. Will need f/u as outpt 6. left adnexal mass, primary care to f/u
--- NOTE | 2019-06-14 13:31 | PN_ITS ---
Patient Problems: Active and Suspected Problems (Last Updated 06/13/19 @ 12:[address] Balta Gayle, DO) Nephrolithiasis (Acute) Hypercalcemia (Acute) Abdominal pain (Acute) Reason for Visit: abd pain Subjective: yesterday pt had flank pain radiating around the left into the stomach. Today no pain. No fever/chills, no nausea/vomiting. Pt states she was worked up for hypercalcemia in the past and no dx was made. Pt resting comfortably in bed NAD. She has felt mild lightheadedness today. No fever/chills. No dysuria, no hematuria, no frequency. Vitals/I&O's: Vital Signs Temp Pulse Resp BP Pulse Ox 98.9 F 77 18 128/74 H 98 06/14/19 08:00 06/14/19 08:00 06/14/19 08:00 06/14/19 08:00 06/14/19 08:00 Oxygen Delivery Method Room Air Weight: 134 lb 7.712 oz Body Mass Index (BMI) 22.4 Intake and Output for Last 24 Hours 06/12/19 06/13/19 06/14/19 23:59 23:59 23:59 Intake Total 4881.67 / 4881.67 4550 / 4550 Output Total 1675 / 1675 1400 / 1400 Balance 3206.67 / 3206.67 3150 / 3150 General: Alert, Oriented x3, Cooperative HEENT: Atraumatic, PERRLA, EOMI, Normocephalic Neck: Supple, No JVD, Negative Carotid Bruits Lungs: Clear to auscultation, Normal air movement Cardiovascular: Regular rate, No murmurs Abdomen: Bowel Sounds Present, Soft, Non Tender, - - no cva tenderness. Extremities: No edema, Capillary Refill Less than 3 Seconds Skin: No rashes, No breakdown Musculoskeletal: No Tenderness to Palpation of Joints or Extremities Neurological: Cranial nerves II-XII grossly intact Psych/Mental Status: Normal Affect, Appropriate, Alert and oriented to time, place, person, mood and affect Laboratory Results 06/13/19 13:11: Total Protein (PEP) Pending, Albumin (PEP) Pending, Globulin (PEP) Pending, Albumin/Globulin (PEP) Pending, Bswcv-0-Mzxakaicg Pending, Zdqxw-0-Nrdheuntx Pending, Beta Globulins Pending, Gamma Globulins Pending, M- Arcadio Pending, Urine Total Protein Pending, Urine Albumin Pending, U Mxohs-4-Nnejqvxo Pending, U Elvbz-7-Fwcjhqid Pending, U Beta Globulin Pending, U Gamma Globulin Pending, U PEP M-Arcadio Pending 06/13/19 13:17: Sodium 136, Potassium 3.4 L, Chloride 101, Carbon Dioxide 30.0, Anion Gap 5, BUN 28 H, Creatinine 1.94 H, Estim Creat Clear Calc 26.36, Est GFR (MDRD) Af Amer 33 L, Est GFR (MDRD) Non-Af 28 L, BUN/Creatinine Ratio 14.4, Glucose 131 H, Calcium 12.5 H 06/13/19 13:18: Vitamin D 25-Hydroxy 28.4 06/14/19 05:43: WBC 6.5, RBC 3.40 L, Hgb 10.4 L, Hct 31.8 L, MCV 93.5, MCH 30.6, MCHC 32.7, RDW Std Deviation 39.8, RDW Coeff of David 11.8, Plt Count 197, MPV 9.2, Immature Gran % (Auto) 0.300, Neut % (Auto) 72.2 H, Lymph % (Auto) 17.8 L, [place] % (Auto) 5.7, Eos % (Auto) 3.8, Baso % (Auto) 0.2, Absolute Neuts (auto) 4.7, Absolute Lymphs (auto) 1.16, Nucleated RBC % 0 06/14/19 05:43: Sodium 138, Potassium 3.7, Chloride 105, Carbon Dioxide 30.0, Anion Gap 3 L, BUN 25 H, Creatinine 1.85 H, Estim Creat Clear Calc 27.64, Est GFR (MDRD) Af Amer 35 L, Est GFR (MDRD) Non-Af 29 L, BUN/Creatinine Ratio 13.5, Glucose 87, Calcium 11.8 H 06/14/19 05:43: Miscellaneous Test Pending Current Medications Acetaminophen (Tylenol) 650 mg PO Q6H PRN PRN PRN Reason: Pain Score 1-10/Temp > 100.7 F Amlodipine Besylate (Norvasc) 5 mg PO DAILY [facility] Last Admin: 06/14/19 08:54 Dose: 5 mg Documented by: Enoxaparin Sodium (Lovenox) 30 mg SC DAILY [facility] Last Admin: 06/14/19 09:32 Dose: Not Given Documented by: Glucagon () 1 mg IM .X1 PRN PRN Reason: Hypoglycemia Sodium Chloride () 1,000 mls @ 200 mls/hr IV .Q5H [facility] Last Admin: 06/14/19 11:14 Dose: 200 mls/hr Documented by: Sodium Chloride () 250 mls @ 15 mls/hr IV .[id number] PRN PRN Reason: Saline Flush Sodium Chloride () 250 mls @ 15 mls/hr IV .[id number] PRN PRN Reason: Additional IVPB Infusion Dextrose (Dextrose 10%-Water) 250 mls @ 999 mls/hr IV .Q16M PRN; Protocol PRN Reason: HYPOGLYCEMIA Oxycodone HCl (Oxyir) 5 mg PO Q4H PRN PRN PRN Reason: Pain Score 4-10/10 Last Admin: 06/14/19 08:53 Dose: 5 mg Documented by: Sodium Chloride () 10 - 40 ml IV UD PRN PRN Reason: SALINE FLUSH Medical Necessity - Tobacco Use Smoking Status: Never smoker Tobacco Use: Non-smoker Assessment/Plan All Active Problems (Last Updated 06/13/19 @ 12:[address] Balta Gayle, DO) Nephrolithiasis (Acute) Hypercalcemia (Acute) Abdominal pain (Acute) 1. Hypercalcemia - improving. urine/serum proteins pending. VitD mildly insufficient - nephro notes to avoid vit D. PTH nl. Nephro following. Abd/flank pain resolved. No urinary complaints. 2. COLLINS - improving. continue IVF. off ARB. 3. Adnexal mass - pelvic US suggests dermoid cyst: OBGYN f/u 4. AAA noted on CT - f.u as o/p for serial imaging. 5. HTN - off cozar, continue norvasc. BP stable. DVT ppx: refused lovenox, early ambulation. This patient was seen by Howard Stallings PA-C under the supervision of Dr. Gayle.
--- NOTE | 2019-06-14 15:10 | DCINST_ITS ---
- Discharge Diagnoses Current Active Problems: Current Active and Chronic Problems (Last Updated 06/13/19 @ 12:[address] Balta Gayle DO) CKD (chronic kidney disease) stage 4, GFR 15-29 ml/min (Chronic) Nephrolithiasis (Acute) Hypercalcemia (Acute) Abdominal pain (Acute) You will use the following diet at home:: Cardiac Your food should be the consistency of: Regular Your liquids should be the consistency of: Regular/Thin Discharge Activity: Return to Normal Activity Allergies/Adverse Reactions: Allergies acetaminophen [From Tylenol] Adverse Reaction (Verified 06/13/19 07:39) Other rapid heart rate Medications to take at Discharge Amlodipine [Norvasc] 5 mg PO DAILY 06/13/19 Hasty-3/Dha/Epa/Fish Oil [Hasty 3 500 Softgel] 1 ea PO BID 06/13/19 Primary Care Physician: [facility] Doctor,Out of [NON-STAFF] - Please follow up with your Primary Care Physician in: 1-2 weeks Test Results: Test results from this visit will be discussed in further detail at your follow- up appointment, if applicable. Please Follow Up With: Suze Gomez DO When: 2 weeks Proposed Discharge Date: 06/14/19
--- NOTE | 2019-06-14 15:11 | DS.PCM_ITS ---
<Howard Stallings - Last Filed: 06/14/19 15:11> Discharge Date and Diagnosis - Problem List Patient Problems: Active and Suspected Problems (Last Updated 06/13/19 @ 12:[address] Balta Gayle DO) Nephrolithiasis (Acute) Hypercalcemia (Acute) Abdominal pain (Acute) Date of Admission: 06/13/19 Date of Discharge: 06/14/19 - Primary Discharge Diagnosis Active and Suspected Problems (Last Updated 06/13/19 @ 12:[address] Balta Gayle DO) Hypercalcemia (Acute) Nephrolithiasis COLLINS, suspect CKDIV AAA HTN Dermoid cyst - Secondary Discharge Diagnosis Chronic Problems (Last Updated 06/13/19 @ 12:[address] Balta Gayle DO) CKD (chronic kidney disease) stage 4, GFR 15-29 ml/min (Chronic) Hospital Course and Treatment Imaging Results: US/Gallbladder IMPRESSION: Sludge is seen within the gallbladder lumen. Right renal cysts. Multiple small nonobstructing right intrarenal calculi. CT/Abdomen/Pelvis without Cont IMPRESSION: Sludge or tiny gallstones within the gallbladder lumen. Marked atrophy of the left kidney. Bilateral renal calcifications and cyst in the right kidney. 7.1 cm x 7.5 cm mixed soft tissue density in the left adnexa containing fat as well. A dermoid should BE ruled out. 4.3 cm fusiform infrarenal abdominal aortic aneurysm. US/Pelvic (Non ) IMPRESSION: Confirmation of a 7.6 cm mixed echogenicity mass of the left ovary/adnexa consistent with the CT scan diagnosis of dermoid. In general, the CT appearance is characteristic and ultrasound is less specific and accurate. Normal appearance of the uterus and right ovary. Consults: Nephrology - Jason Operations: None Procedures: None Summary of Care Provided: Hospital course: The patient is a 64 year old F with pmhx of hypercalcemia, kidney stones, HTN, who presented to the ER with flank pain radiating into the left abdomen. She came to the ER and was found to have hypercalcemia (13.3), BUN/Cr elevated, CT abdomen with, gallbladder sludge, atrophy of the left kidney, bilateral renal calcifications and cyst in the right kidney, 7.1 cm x 7.5 cm mixed soft tissue density in the left adnexa containing fat, 4.3 cm fusiform infrarenal abdominal aortic aneurysm. She reported that she had been previously worked up for hypercalcemia but no diagnosis to have been reached. She was admitted for hypercalcemia. She likely had abdominal and flank pain secondary to stones however it appeared to be nonobstructing. She was given IV fluids, nephrology was consulted. PTH was ordered, normal, vitamin D was slightly decreased at 28.4, urinalysis was unremarkable. 24-hour urine was obtained and is pending, serum and urine proteins are pending as well. By the following day she had no further symptoms. Her calcium trended up from 13.3-12 0.5-11.8. After completi on of the collection of 24-hour urine the patient was discharged home in stable condition. She will need outpatient follow-up with nephrology in 2 weeks. She will need to have calcium checked in 1 week as an outpatient. She will also need to follow-up with her PCP in 1 to 2 weeks. To further evaluate the dermoid cyst and a pelvic ultrasound was obtained which showed probable dermoid cyst. She will need follow-up with [employer] REPA[employer]ER as an outpatient and will need referred by her PCP. She will also need serial imaging of the AAA noted on the CT as an outpatient. This patient was seen by Howard Stallings PA-C under the supervision of Doctor Irwin. [] Patient Problems: Active and Suspected Problems (Last Updated 06/13/19 @ 12:[address] Balta Gayle, DO) Nephrolithiasis (Acute) Hypercalcemia (Acute) Abdominal pain (Acute) - Physical Exam Vitals/I&O's: Vital Signs Temp Pulse Resp BP Pulse Ox 98.4 F 73 18 122/69 H 98 06/14/19 14:31 06/14/19 14:31 06/14/19 14:31 06/14/19 14:31 06/14/19 14:31 Oxygen Delivery Method Room Air Weight: 134 lb 7.712 oz Body Mass Index (BMI) 22.4 Intake and Output for Last 24 Hours 06/12/19 06/13/19 06/14/19 23:59 23:59 23:59 Intake Total 4881.67 / 4881.67 4550 / 4550 Output Total 1675 / 1675 1400 / 1400 Balance 3206.67 / 3206.67 3150 / 3150 General: Alert, Oriented x3, Cooperative HEENT: Atraumatic, PERRLA, EOMI, Normocephalic Neck: Supple, No JVD, Negative Carotid Bruits Lungs: Clear to auscultation, Normal air movement Cardiovascular: Regular rate, No murmurs Abdomen: Bowel Sounds Present, Soft, Non Tender Extremities: No edema, Capillary Refill Less than 3 Seconds Skin: No rashes, No breakdown Musculoskeletal: No Tenderness to Palpation of Joints or Extremities Neurological: Cranial nerves II-XII grossly intact Psych/Mental Status: Normal Affect, Appropriate, Alert and oriented to time, place, person, mood and affect Laboratory Results 06/14/19 05:43: WBC 6.5, RBC 3.40 L, Hgb 10.4 L, Hct 31.8 L, MCV 93.5, MCH 30.6, MCHC 32.7, RDW Std Deviation 39.8, RDW Coeff of David 11.8, Plt Count 197, MPV 9.2, Immature Gran % (Auto) 0.300, Neut % (Auto) 72.2 H, Lymph % (Auto) 17.8 L, Yancey % (Auto) 5.7, Eos % (Auto) 3.8, Baso % (Auto) 0.2, Absolute Neuts (auto) 4.7, Absolute Lymphs (auto) 1.16, Nucleated RBC % 0 06/14/19 05:43: Sodium 138, Potassium 3.7, Chloride 105, Carbon Dioxide 30.0, Anion Gap 3 L, BUN 25 H, Creatinine 1.85 H, Estim Creat Clear Calc 27.64, Est GFR (MDRD) Af Amer 35 L, Est GFR (MDRD) Non-Af 29 L, BUN/Creatinine Ratio 13.5, Glucose 87, Calcium 11.8 H 06/14/19 05:43: Miscellaneous Test Pending Current Medications Acetaminophen (Tylenol) 650 mg PO Q6H PRN PRN PRN Reason: Pain Score 1-10/Temp > 100.7 F Amlodipine Besylate (Norvasc) 5 mg PO DAILY [facility] Last Admin: 06/14/19 08:54 Dose: 5 mg Documented by: Enoxaparin Sodium (Lovenox) 30 mg SC DAILY [facility] Last Admin: 06/14/19 09:32 Dose: Not Given Documented by: Glucagon () 1 mg IM .X1 PRN PRN Reason: Hypoglycemia Sodium Chloride () 1,000 mls @ 200 mls/hr IV .Q5H [facility] Last Admin: 06/14/19 11:14 Dose: 200 mls/hr Documented by: Sodium Chloride () 250 mls @ 15 mls/hr IV .[id number] PRN PRN Reason: Saline Flush Sodium Chloride () 250 mls @ 15 mls/hr IV .[id number] PRN PRN Reason: Additional IVPB Infusion Dextrose (Dextrose 10%-Water) 250 mls @ 999 mls/hr IV .Q16M PRN; Protocol PRN Reason: HYPOGLYCEMIA Oxycodone HCl (Oxyir) 5 mg PO Q4H PRN PRN PRN Reason: Pain Score 4-10/10 Last Admin: 06/14/19 08:53 Dose: 5 mg Documented by: Sodium Chloride () 10 - 40 ml IV UD PRN PRN Reason: SALINE FLUSH Discharge Diet: Low fat/ Low Cholesterol, 2000 mg Sodium Diet Discharge Activity: Return to Normal Activity Home Medications: Medications to take at Discharge Amlodipine [Norvasc] 5 mg PO DAILY 06/13/19 [place]-3/Dha/Epa/Fish Oil [[place] 3 500 Softgel] 1 ea PO BID 06/13/19 Primary Care Physician: Tavo Doctor,Out of [NON-STAFF] - Please follow up with your Primary Care Physician in: 1-2 weeks Please Follow Up With: Suze Gomez DO When: 2 weeks Disposition: Home Minutes spent on discharge:: 35 Patient Condition:: Stable Medical Necessity - Tobacco Use Smoking Status: Never smoker Tobacco Use: Non-smoker Meaningful Use Info Meaningful Use Diagnoses (Choose all that apply): None applicable <Balta Gayle - Last Filed: 06/14/19 15:36> Discharge Date and Diagnosis - Primary Discharge Diagnosis Active and Suspected Problems (Last Updated 06/13/19 @ 12:[address] Balta Gayle DO) Nephrolithiasis (Acute) Hypercalcemia (Acute) Abdominal pain (Acute) - Secondary Discharge Diagnosis Chronic Problems (Last Updated 06/13/19 @ 12:[address] Balta Gayle DO) CKD (chronic kidney disease) stage 4, GFR 15-29 ml/min (Chronic) Hospital Course and Treatment Operations: None Procedures: None Summary of Care Provided: Patient seen and examined independently. Data reviewed. I agree with the above note by the physician railway yard assistant. The patient is a 64 year old F presents with abdominal pain. Patient had a CAT scan that showed no acute process but did show what was scarring concerning for a dermoid cyst. Patient's calcium was 13.3. Patient received Lasix as well as IV fluids with a nephrology consultation. Today, her calcium improved to 11.8. Dr. Gomez, of nephrology, states that the patient can be discharged home to complete remainder of her work-up and to follow-up with Dr. Gomez. Patient is comfortable with that plan. I told patient that we cannot rule out malignancy at this point time the patient will need to have routine screening tests, including colonoscopy, mammogram and patient will need to follow-up with the gynecology nurse at this possible dermoid cyst unlikely to be cancer. [] - Physical Exam Vitals/I&O's: Vital Signs Temp Pulse Resp BP Pulse Ox 36.9 C 73 18 122/69 H 98 06/14/19 14:31 06/14/19 14:31 06/14/19 14:31 06/14/19 14:31 06/14/19 14:31 Oxygen Delivery Method Room Air Weight: 61 kg Body Mass Index (BMI) 22.4 Intake and Output for Last 24 Hours 06/12/19 06/13/19 06/14/19 23:59 23:59 23:59 Intake Total 4881.67 / 4881.67 4550 / 4550 Output Total 1675 / 1675 1400 / 1400 Balance 3206.67 / 3206.67 3150 / 3150 General: Alert, Cooperative HEENT: Atraumatic, Normocephalic Lungs: Clear to auscultation, Normal air movement, No rhonchi, No wheeze Cardiovascular: Regular rate, Regular Rhythm, Normal S1, No murmurs Psych/Mental Status: Normal Affect, Appropriate Laboratory Results 06/14/19 05:43: WBC 6.5, RBC 3.40 L, Hgb 10.4 L, Hct 31.8 L, MCV 93.5, MCH 30.6, MCHC 32.7, RDW Std Deviation 39.8, RDW Coeff of David 11.8, Plt Count 197, MPV 9.2, Immature Gran % (Auto) 0.300, Neut % (Auto) 72.2 H, Lymph % (Auto) 17.8 L, Yancey % (Auto) 5.7, Eos % (Auto) 3.8, Baso % (Auto) 0.2, Absolute Neuts (auto) 4.7, Absolute Lymphs (auto) 1.16, Nucleated RBC % 0 06/14/19 05:43: Sodium 138, Potassium 3.7, Chloride 105, Carbon Dioxide 30.0, Anion Gap 3 L, BUN 25 H, Creatinine 1.85 H, Estim Creat Clear Calc 27.64, Est GFR (MDRD) Af Amer 35 L, Est GFR (MDRD) Non-Af 29 L, BUN/Creatinine Ratio 13.5, Glucose 87, Calcium 11.8 H 06/14/19 05:43: Miscellaneous Test Pending Current Medications Acetaminophen (Tylenol) 650 mg PO Q6H PRN PRN PRN Reason: Pain Score 1-10/Temp > 100.7 F Amlodipine Besylate (Norvasc) 5 mg PO DAILY [facility] Last Admin: 06/14/19 08:54 Dose: 5 mg Documented by: Enoxaparin Sodium (Lovenox) 30 mg SC DAILY [facility] Last Admin: 06/14/19 09:32 Dose: Not Given Documented by: Glucagon () 1 mg IM .X1 PRN PRN Reason: Hypoglycemia Sodium Chloride () 1,000 mls @ 200 mls/hr IV .Q5H [facility] Last Admin: 06/14/19 11:14 Dose: 200 mls/hr Documented by: Sodium Chloride () 250 mls @ 15 mls/hr IV .[id number] PRN PRN Reason: Saline Flush Sodium Chloride () 250 mls @ 15 mls/hr IV .[id number] PRN PRN Reason: Additional IVPB Infusion Dextrose (Dextrose 10%-Water) 250 mls @ 999 mls/hr IV .Q16M PRN; Protocol PRN Reason: HYPOGLYCEMIA Oxycodone HCl (Oxyir) 5 mg PO Q4H PRN PRN PRN Reason: Pain Score 4-10/10 Last Admin: 06/14/19 08:53 Dose: 5 mg Documented by: Sodium Chloride () 10 - 40 ml IV UD PRN PRN Reason: SALINE FLUSH Discharge Diet: Low fat/ Low Cholesterol Discharge Activity: Return to Normal Activity Disposition: Home Patient Condition:: Stable Medical Necessity - Tobacco Use Smoking Status: Never smoker Tobacco Use: Non-smoker Meaningful Use Info Meaningful Use Diagnoses (Choose all that apply): None applicable Inpatient E&M: 91669 Disch Hosp
--- NOTE | 2019-06-14 20:10 | NURSING ---
Pt home medications returned. Pt wheeled out in wheelchair by HUMAN RESOURCE OFFICER.
[2019-06-14 21:24] LABS: (24 HR) Urine Calcium 597.4 mg/24 HR (42.0-353.0); 24HR UR TOTAL VOLUME 5800 ml; Calcium Urine pH Range 6; Urine Calcium (Random) 10.3 (Not Estab.)
[2019-06-14 21:25] LABS: 24Hr.Lytes Total Volume 5800 mL; Sodium 24 HR UR 296 mmol/24h (40-220); Urine Chloride 45 mmol/L (Not Establ.); Urine Chloride / 24 Hours 261 mmol/24h (110-250); Urine Sodium 51 mmol/L (Not Establ.)
[2019-06-14 21:26] LABS: 24HR. Urine Creatinine 1.14 g/24 HR (0.70-1.90)
[2019-06-17 12:06] LABS: PROEL- A/G Ratio 0.7 (0.7-1.7); PROEL- Albumin 2.9 g/dL (2.9-4.4); PROEL- Alpha-1 Globulin 0.6 g/dL (0.0-0.4); PROEL- Alpha-2 Globulin 0.9 g/dL (0.4-1.0); PROEL- Beta Globulin 1.1 g/dL (0.7-1.3); PROEL- Gamma Globulin 1.3 g/dL (0.4-1.8); PROEL- Globulin, Total 3.9 g/dL (2.2-3.9); PROEL- TOTAL PROTEIN 6.8 g/dL (6.0-8.5); PROELU- Albumin, Urine 31.6 % (.); PROELU- Alpha-1-Globulin,Ur 5.7 % (.); PROELU- Alpha-2-Globulin,Ur 22.9 % (.); PROELU- Beta Globulin, Ur 24.5 % (.); PROELU- Gamma Globulin, Ur 15.3 % (.); Total Protein, Ur 61.2 mg/dL (Not Estab.)
[2019-06-17 12:06] LABS: Uric Acid, Ur 6.1 mg/dL (Not Estab.)
[2019-06-17 13:45] LABS: Uric Acid, 24Ur 353.8 mg/24 hr (142.3-713.2)
== END 2019-06-14 20:10 | disposition home or self-care (01) | DRG 641 ==
LOC: ED 10:17 → PCU 10:22
PROVIDERS: Internal Medicine Nephrology; Emergency Provider Emergency Medicine
DX: E83.52 Hypercalcemia (principal); N18.4 Chronic kidney disease, stage 4 (severe); N17.9 Acute kidney failure, unspecified; I71.4 Abdominal aortic aneurysm, without rupture; N20.0 Calculus of kidney; I12.9 Hypertensive chronic kidney disease with stage 1 through stage 4 chronic kidney disease, or unspecified chronic kidney disease; D28.7 Benign neoplasm of other specified female genital organs; Z87.442 Personal history of urinary calculi; N28.1 Cyst of kidney, acquired
CPT/HCPCS: 36415; 74176; 76705; 76856; 80048; 80076; 81001; 82306; 82330; 82340; 82436; 82570; 82652; 83690; 83970; 84133; 84165; 84166; 84300; 84560; 85025; 93005; 99282; J7030; A4216; J1940; J2405

== ENCOUNTER → 2019-06-21 14:58 | Outpatient (CLI) | payer SELFPAY ==
[2019-06-13 11:06] VITALS: BMI 22.4
[2019-06-21 17:53] LABS: Albumin, Serum 2.8 g/dL (3.2-5.0); BUN 36 mg/dL (7-18); BUN/Creat Ratio 15.3 RATIO (10-20); Chloride 92 mmol/L (98-107); Creatinine, Serum 2.35 mg/dL (0.55-1.02); EST Glomerular Filtration Rate 22 mL/min (>60); Est Glom Filt Rate - Afr Amer 27 mL/min (>60); Glucose 98 mg/dL (74-106); Phosphorus 2.5 mg/dL (2.5-4.9); Potassium 3.4 mmol/L (3.5-5.1); Sodium Level 129 mmol/L (136-145)
== END ==
PROVIDERS: Referring Provider Internal Medicine Nephrology; Visit Provider Internal Medicine Nephrology
DX: E83.52 Hypercalcemia (principal); N18.9 Chronic kidney disease, unspecified
CPT/HCPCS: 36415; 80069

== ENCOUNTER 2019-06-24 11:38 | Inpatient (IN) | payer OTHER, SELFPAY ==
[2019-06-13 11:06] VITALS: BMI 22.4
[2019-06-24 11:39] VITALS: BP 167/89; PULSE 89; RESP 16; TEMP 36.6; O2SAT 99; BMI 21.6
--- NOTE | 2019-06-24 11:57 | EKG12_ITS ---
Test Reason : ABN LABS Blood Pressure : / mmHG Vent. Rate : 081 BPM Atrial Rate : 081 BPM P-R Int : 152 ms QRS Dur : 096 ms QT Int : 338 ms P-R-T Axes : 053 018 019 degrees QTc Int : 392 ms Normal sinus rhythm Normal ECG Confirmed by DEAN EUCEDA, JOSEPH ([id number]), design editor KATH INFANTE ([id number]) on 07/01/2019 11:08:13 AM Referred By: SIVAKUMAR Confirmed By:MELANY MORAN MD
--- NOTE | 2019-06-24 11:57 | ED.DCSUM_ITS ---
History of Present Illness Chief Complaint: Abn Labs Detail of Chief Complaint: high calcium Informant: Patient Associated Symptoms: none now Narrative: Patient had recent admission for hypercalcemia, she was discharged and had a follow-up lab drawn 3 days ago, she was told today that her calcium came back even higher than when she was admitted to the hospital, around 15. As a result she was referred to the ER today for further evaluation. She states that she had a kidney stone about 2 weeks ago, but it passed and the pain is gone. She also had some other abdominal pains but those are gone as well. - Past Medical History (1) Hypercalcemia Status: Chronic (2) Nephrolithiasis Status: Chronic (3) CKD (chronic kidney disease) stage 4, GFR 15-29 ml/min Status: Chronic (4) Dermoid cyst of ovary Status: Chronic Past Medical History - Allergies and Home Meds Allergies/Adverse Reactions: Allergies acetaminophen [From Tylenol] Adverse Reaction (Verified 06/24/19 11:40) Other rapid heart rate Primary Care Physician: MAE FATIMA [None] - Lives: Spouse/ Significant Other Smoking Status: Never smoker - Family History Paternal Family History: Reports: Hypertension Maternal Family History: Reports: - - no malignancy Review of Systems General: Denies: Chills, Fever, Sweats Eyes: Denies: Visual changes - bilaterally, Diplopia ENT: Denies: Rhinorrhea, Sore throat Cardiovascular: Denies: Chest pain, Palpitations Respiratory: Denies: Dyspnea, Cough, Dyspnea on exertion Gastrointestinal: Denies: Abdominal pain, Nausea, Vomiting, Diarrhea, Melena, Hematochezia Genitourinary: Denies: Dysuria, Hematuria, Frequency Musculoskeletal: Denies: Neck pain, Back pain, Swelling, Extremity Pain Skin: Denies: Rash, Wounds Neurological: Reports: Headache - Intermittent, not present now. Denies: Weakness, Numbness Physical Exam Vital Signs/Narrative: Vital Signs Temp Pulse Resp BP Pulse Ox 06/24/19 11:39 97.8 F 89 16 167/89 H 99 Inital Vital Signs reviewed: Yes General: Well nourished, Well developed, No Acute Distress Head: Normocephalic, Atraumatic Eyes: Perrl, EOMI ENT: Moist mucous membranes, No rhinorrhea Neck: Supple, Nontender, No lymphadenopathy, - - No thyromegaly or tenderness Cardiovascular: Regular rate, Regular rhythm, No murmurs, Normal S1, Normal S2 Respiratory: No distress, CTA bilaterally, Chest nontender Abdomen: Soft, Nontender, Nondistended, Normal bowel sounds Back: Nontender, Normal Inspection Extremities: Nontender, No edema Skin: Normal color, No rash Neurological: Alert, Oriented x3, Cranial nerves II-XII grossly intact, Normal Strength, Normal Sensation, Normal Gait Psychological: Normal affect, Normal Mood Diagnostic/Tx/Re-eval Laboratory Tests 06/24/19 06/24/19 Range/Units 12:20 12:20 WBC 11.3 H (4.4-11.0) K/mm3 RBC 4.16 L (4.2-5.4) M/mm3 Hgb 12.5 (12.0-15.0) g/dL Hct 36.9 L (37-47) % MCV 88.7 (81-99) fL MCH 30.0 (27.0-32.0) pg MCHC 33.9 (32-36) g/dL RDW Std Deviation 35.8 (35.1-43.9) fl RDW Coeff of David 11.1 L (11.6-14.6) % Plt Count 454 H (150-450) K/mm3 MPV 9.5 (6.2-12.0) fl Immature Gran % (Auto) 0.800 (0.0-0.9) % Neut % (Auto) 75.0 H (47-70) % Lymph % (Auto) 16.0 L (19-41) % [place] % (Auto) 7.2 (0-10) % Eos % (Auto) 0.6 (0-5) % Baso % (Auto) 0.4 (0-1) % Absolute Neuts (auto) 8.5 H (2.0-7.7) X10^3/uL Absolute Lymphs (auto) 1.81 (0.83-4.51) X10^3/uL Nucleated RBC % 0 (0-5) % Sodium 133 L (136-145) mmol/L Potassium 3.7 (3.5-5.1) mmol/L Chloride 96 L (98-107) mmol/L Carbon Dioxide 32.0 (21.0-32.0) mmol/L Anion Gap 5 (5-15) BUN 43 H (7-18) mg/dL Creatinine 2.48 H (0.55-1.02) mg/dL Estim Creat Clear Calc 21.45 ml/min Est GFR (MDRD) Af Amer 25 L (>60) mL/min Est GFR (MDRD) Non-Af 21 L (>60) mL/min BUN/Creatinine Ratio 17.3 (10-20) RATIO Glucose 95 (74-106) mg/dL Calcium 16.3 H* (8.5-10.1) mg/dL - Rhythm Strip Rhythm Strip: Sinus Rhythm Rate: 81 Ectopy: None - EKG Initial EKG Interpretation: Sinus Rhythm, No Acute Injury Pattern, - - Short QT - Medical Decision Making Calcium returned at 16.3 and her kidney function is a little worse which may be related. She has a shortened QT on the EKG likely resulting from this level. She was given Lasix and will be admitted to monitored bed for further management. ED Disposition - Plan for ED Patient: Disposition: Acute Care Hospital [facility] Diagnosis: Hypercalcemia, Acute on chronic renal failure Referrals: MAE FATIMA [None] -
[2019-06-24] MEDS: Furosemide 20 MG/2 ML VIAL IV (12:21)
[2019-06-24 12:43] LABS: Absolute Lymphocyte Count 1.81 X10^3/uL (0.83-4.51); Absolute Neutrophil Count 8.5 X10^3/uL (2.0-7.7); Basophil# 0.04 X10^3/uL; Basophil% 0.4 % (0-1); Eosinophil# 0.07 X10^3/uL; Eosinophils% 0.6 % (0-5); Hematocrit 36.9 % (37-47); Hemoglobin 12.5 g/dL (12.0-15.0); Lymphocyte # 1.81 X10^3/ul (4.0); Mean Corp Hgb Conc 33.9 g/dL (32-36); Mean Corpuscular Volume 88.7 fL (81-99); Mean Platelet Vol. 9.5 fl (6.2-12.0); Monocyte# 0.81 X10^3/uL; Monocyte% 7.2 % (0-10); NRBC Flagged by Analyzer 0 % (0-5); Neutrophil # 8.47 X10^3/uL (2.7-7.7); Platelet Count 454 K/mm3 (150-450); RBC Distribution Width CV 11.1 % (11.6-14.6); RBC Distribution Width SD 35.8 fl (35.1-43.9); Red Blood Count 4.16 M/mm3 (4.2-5.4); White Blood Count 11.3 K/mm3 (4.4-11.0)
[2019-06-24 12:56] LABS: Anion Gap 5 (5-15); BUN 43 mg/dL (7-18); BUN/Creat Ratio 17.3 RATIO (10-20); Calcium,Total 16.3 mg/dL (8.5-10.1); Chloride 96 mmol/L (98-107); Creatinine, Serum 2.48 mg/dL (0.55-1.02); EST Glomerular Filtration Rate 21 mL/min (>60); Est Glom Filt Rate - Afr Amer 25 mL/min (>60); Estimated Creatinine Clearance 21.45 ml/min; Glucose 95 mg/dL (74-106); Potassium 3.7 mmol/L (3.5-5.1); Sodium Level 133 mmol/L (136-145)
[2019-06-24 14:02] VITALS: BP 161/84; PULSE 98; RESP 16; TEMP 37.1; O2SAT 99
[2019-06-24 14:37] VITALS: BMI 21.0; BMI 59.1
--- NOTE | 2019-06-24 14:42 | CON.PCM_ITS ---
Consultation - Renal 06/24/19 PCP/ Referring MD: Requesting physician: [] Primary care physician: Dawna Peres PA-C Reason for Consultation:: hypercalcemia - History of Present Illness History of Present Illness: The patient is a 64 year old F readmitted for elevated calcium level 16 on June 20 labs drawn for office follow-up. Multiple phone calls made over weekend since Monday night. They had no VM set up with home phone. Message left on work phone over weekend to call back just heard this morning since no one at work on weekends. She was hospitalized June 12- for hypercalcemia with calcium of 13.3 when she was seen on initial consult. Calcium level was 11.8 prior to discharge on 06/13. She has been hospitalized in [place] in 2016 for hypercalcemia of unknown etiology. She states that she was feeling fine except for headaches. She took Motrin for the headache and losartan she had left over from prior prescription for hypertension. She has known abdominal aortic aneurysm found on prior CT. CT during last hospitalization showed dermoid cyst in the left pelvis with abdominal aortic aneurysm and nephrocalcinosis. Her creatinine level improved from 2.0 to 1.8 with IV hydration during last hospitalization. Creatinine was at 2.48 with this admission. She denied any visual changes, no muscle spasms, no polyuria or polydipsia. She has nausea on occasion and chills without fever. She denies any history of tuberculosis exposure. She has never been tested for TB. She denies history of cancer. During last hospitalization her vitamin D 25 level was normal at 28, vitamin D1, 25 level elevated 354. PTH was 54 with PTH related peptide <2. SPEP and UPEP was negative for M spike. However alpha-1 and globulin level were mildly elevated. Urine protein electrophoresis showed asymmetrical beta and gamma regions. She denies taking vitamin D supplements OTC. Denies excessive milk consumption or antacids. - Allergies Allergies: Allergies acetaminophen [From Tylenol] Adverse Reaction (Verified 06/24/19 11:40) Other rapid heart rate - Current Medications Current Medications: Current Medications Pamidronate Disodium 30 mg/ (Sodium Chloride) 253.3333 mls @ 250 mls/hr IV X1 ONE Stop: 06/24/19 15:32 Sodium Chloride () 1,000 mls @ 200 mls/hr IV .Q5H [facility] - Past Medical History Past Medical History (Chronic Problems): Chronic Problems (Last Reviewed 06/24/19 @ 14:[address] Balta Gayle DO) Hypertension (Chronic) Dermoid cyst of ovary (Chronic) Acute on chronic renal failure (Chronic) CKD (chronic kidney disease) stage 4, GFR 15-29 ml/min (Chronic) Nephrolithiasis (Chronic) Hypercalcemia (Chronic) - Social History Smoking Status: Never smoker - Family History Maternal History Items: - - no malignancy Paternal History Items: Hypertension Review of Systems Constitutional: Reports: Chills. Denies: Anorexia, Fever, Weakness Eyes: Reports: -. Denies: Blurred vision HEENT: Reports: Head Aches Cardiovascular: Denies: Chest Pain, Edema, Syncope Respiratory: Denies: Cough, Shortness of Breath Gastrointestinal: Reports: Nausea. Denies: Abdominal Pain, Diarrhea Genitourinary: Denies: Dysuria Musculoskeletal: Reports: - - no spasms Skin: Denies: Rash Neurological: Reports: -. Denies: Balance problems, Tremor, Seizures Psychiatric: Denies: Anxiety, Depression Hematologic/ Lymphatic: Denies: Anemia Patient Problems: Active and Suspected Problems (Last Reviewed 06/24/19 @ 14:[address] Balta Gayle DO) AAA (abdominal aortic aneurysm) (Acute) - Physical Exam Vitals/I&O's: Vital Signs Temp Pulse Resp BP Pulse Ox 98.7 F 98 16 161/84 H 99 06/24/19 14:02 06/24/19 14:02 06/24/19 14:02 06/24/19 14:02 06/24/19 14:02 Oxygen Delivery Method Room Air Weight: 59.1 kg Body Mass Index (BMI) 21.0 General: Alert, Oriented x3, Cooperative, No apparent distress HEENT: PERRLA, EOMI Lungs: Clear to auscultation Cardiovascular: Regular rate Abdomen: Bowel Sounds Present, Soft, Non Tender, Non-Distended Extremities: No edema Psych/Mental Status: Normal Affect, Appropriate, Alert and oriented to time, place, person, mood and affect Laboratory Results 06/24/19 12:20: WBC 11.3 H, RBC 4.16 L, Hgb 12.5, Hct 36.9 L, MCV 88.7, MCH 30.0, MCHC 33.9, RDW Std Deviation 35.8, RDW Coeff of David 11.1 L, Plt Count 454 H, MPV 9.5, Immature Gran % (Auto) 0.800, Neut % (Auto) 75.0 H, Lymph % (Auto) 16.0 L, [place] % (Auto) 7.2, Eos % (Auto) 0.6, Baso % (Auto) 0.4, Absolute Neuts (auto) 8.5 H, Absolute Lymphs (auto) 1.81, Nucleated RBC % 0 06/24/19 12:20: Sodium 133 L, Potassium 3.7, Chloride 96 L, Carbon Dioxide 32.0, Anion Gap 5, BUN 43 H, Creatinine 2.48 H, Estim Creat Clear Calc 21.45, Est GFR (MDRD) Af Amer 25 L, Est GFR (MDRD) Non-Af 21 L, BUN/Creatinine Ratio 17.3, Glucose 95, Calcium 16.3 H* 06/24/19 12:20: Ionized Calcium Pending Current Medications Pamidronate Disodium 30 mg/ (Sodium Chloride) 253.3333 mls @ 250 mls/hr IV X1 ONE Stop: 06/24/19 15:32 Sodium Chloride () 1,000 mls @ 200 mls/hr IV .Q5H [facility] Assessment/Plan All Active Problems (Last Reviewed 06/24/19 @ 14:[address] Balta Gayle, DO) AAA (abdominal aortic aneurysm) (Acute) Abdominal pain (Acute) 1. Chronic, persistent hypercalcemia with calcium level 16. Last hospitalization a week ago for the same. During prior hospitalization her vitamin D1,25 level elevated at 354. vitamin D 25 level normal at, 28 PTH and PTHrp <2 therefore goes against hyperparathyroidism or PTHrp hypercalcemia. No history of tuberculosis. CT abdomen with dermoid cyst on the left pelvis. 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 Currently complains of a headache with chills. Denies fever. Will obtain ALEENA level rule out sarcoid, check ANCA studies for vasculitis (eg Granulomatosis polyangitis) with microscopic hematuria although this may be due to nephrocalcinosis. Will place PPD rule out tuberculosis. Consider consult with oncology to rule out occult malignancy such as lymphoma. SPEP with mild elevation in alpha1 and globulin, UPEP with asymmetrical beta and gamma regions. F/U with NALDO studies. Will start aggressive iv fluids with lasix, aredia 30mg x1 dose ( cautious use of high dose due to CKD). 24h urine calcium 597mg inconsistent with hypercalcemic hypocalciuria. 2. CKD stage IV. Creatinine 2.48. Potassium levels stable despite taking Motrin tablets x2 and Losartan according to the patient. Baseline creatinine 1.8 during last hospitalization after iv fluids. 3. Dermoid cyst left pelvis 4. Hypertension resume amlodipine. 5. Fusiform AAA. No prior CT for comparison. Pt has been aware of the AAA from prior CT done.
--- NOTE | 2019-06-24 14:53 | HP.PCM_ITS ---
History of Present Illness Date of Admission: 06/24/19 Chief Complaint: hypercalcemia The patient is a 64 year old F presents after being found to have hypercalcemia on lab work. Lab work was performed last Monday but they were unable to get a hold of the patient until today and patient was asked to come to the hospital because her calcium level was 16. In the emergency room, her calcium level was 16.3. Patient otherwise feels fine other than a headache which she has been having pain much daily since she was here last. Patient does take intermittent Motrin. Patient denies any supplement taking other than some garlic. States that she does not drink much in the way of milk either. In the emergency room, patient did receive 40 mg of IV Lasix. [] Past Medical History Past Medical History (Chronic Problems): Chronic Problems (Last Updated 06/13/19 @ 12:[address] Balta Gayle DO) Dermoid cyst of ovary (Chronic) Acute on chronic renal failure (Chronic) CKD (chronic kidney disease) stage 4, GFR 15-29 ml/min (Chronic) Nephrolithiasis (Chronic) Hypercalcemia (Chronic) Medical History: Medical History (Last Reviewed 06/24/19 @ 14:[address] Balta Gayle DO) Hypercalcemia E83.52 HTN (hypertension) I10 Allergies acetaminophen [From Tylenol] Adverse Reaction (Verified 06/24/19 11:40) Other rapid heart rate Home Medications: Ambulatory Orders Medication Instructions Recorded Amlodipine [Norvasc] 5 mg PO DAILY 06/13/19 [place]-3/Dha/Epa/Fish Oil [[place] 3 1 ea PO BID 06/13/19 500 Softgel] Lives: Spouse/ Significant Other Smoking Status: Never smoker - *Family History Maternal History Items: - - no malignancy Paternal History Items: Hypertension Review of Systems Constitutional: Denies: Anorexia, Chills, Fever, Night Sweats Eyes: Denies: Blurred vision, Double vision HEENT: Denies: Head Aches, Sinus Congestion, Sinus Drainage Cardiovascular: Denies: Chest Pain, Palpitations Respiratory: Denies: Cough, Shortness of breath at rest, Sputum production Gastrointestinal: Denies: Abdominal Pain, Nausea, Vomiting Genitourinary: Denies: Dysuria, Hesitancy Musculoskeletal: Denies: Joint Pain, Joint Tenderness Skin: Denies: Rash, Wounds Neurological: Denies: Numbness, Tingling, Focal weakness Psychiatric: Denies: Anxiety, Depression Hematologic/ Lymphatic: Denies: Easy Bruising, Easy Bleeding, Hx of blood clot Comment: All review of systems were negative except as mentioned above in the history of present illness and the other review of systems. VTE Information - Inpt Only VTE Present on Admission: No VTE Mechan Device Prophylaxis: None VTE Pharm Prophylaxis ordered?: Yes - Physical Exam Vitals/I&O's: Vital Signs Temp Pulse Resp BP Pulse Ox 37.1 C 98 16 161/84 H 99 06/24/19 14:02 06/24/19 14:02 06/24/19 14:02 06/24/19 14:02 06/24/19 14:02 Oxygen Delivery Method Room Air Weight: 59.1 kg Body Mass Index (BMI) 21.0 General: Alert, Cooperative, No apparent distress HEENT: Atraumatic, Normocephalic Oral: Moist Mucosa, No Gingival or Mucosal Lesions/ Ulcerations Neck: No Nodes, Trachea Midline Lungs: Normal air movement, No wheeze, - - bibasilar crackles Cardiovascular: Regular Rhythm, Normal S1, Normal S2, No murmurs, No Ectopic Activity Abdomen: Bowel Sounds Present, Soft, Non Tender, Non-Distended, No Hepato- splenomegaly Extremities: No edema, No Calf Tenderness Skin: No rashes, No breakdown Musculoskeletal: No Tenderness to Palpation of Joints or Extremities, No Muscle Wasting Neurological: - - DTRs are 3-4 in the patellar reflex. No clonus. Psych/Mental Status: Normal Affect, Appropriate Laboratory Results 06/24/19 12:20: WBC 11.3 H, RBC 4.16 L, Hgb 12.5, Hct 36.9 L, MCV 88.7, MCH 30.0, MCHC 33.9, RDW Std Deviation 35.8, RDW Coeff of David 11.1 L, Plt Count 454 H, MPV 9.5, Immature Gran % (Auto) 0.800, Neut % (Auto) 75.0 H, Lymph % (Auto) 16.0 L, Blair % (Auto) 7.2, Eos % (Auto) 0.6, Baso % (Auto) 0.4, Absolute Neuts (auto) 8.5 H, Absolute Lymphs (auto) 1.81, Nucleated RBC % 0 06/24/19 12:20: Sodium 133 L, Potassium 3.7, Chloride 96 L, Carbon Dioxide 32.0, Anion Gap 5, BUN 43 H, Creatinine 2.48 H, Estim Creat Clear Calc 21.45, Est GFR (MDRD) Af Amer 25 L, Est GFR (MDRD) Non-Af 21 L, BUN/Creatinine Ratio 17.3, Glucose 95, Calcium 16.3 H* 06/24/19 12:20: Ionized Calcium Pending Current Medications Pamidronate Disodium 30 mg/ (Sodium Chloride) 253.3333 mls @ 250 mls/hr IV X1 ONE Stop: 06/24/19 15:32 Sodium Chloride () 1,000 mls @ 200 mls/hr IV .Q5H ELOY Sodium Chloride () 10 - 40 ml IV UD PRN PRN Reason: SALINE FLUSH Assessment/Plan All Active Problems (Last Updated 06/13/19 @ 12:[address] Balta Gayle, DO) Abdominal pain (Acute) 1. Hypercalcemia: Etiology is yet to be defined. Patient does have a elevated 1, 25 hydroxy vitamin D level. Discussed with Dr. Gomez, who is concerned about possible underlying malignancy, such as lymphoma. Will consult Dr. Merritt of oncology, for assistance. In the meantime, patient will receive IV fluids and additional dose of furosemide around 1800. Patient did receive 40 mg of IV furosemide prior to receiving IV fluids in the emergency room. Despite her extremely high level, she is asymptomatic at this time. 2. Migraine: Patient states that she has been taking Motrin intermittently. Patient advised to hold off on that given her chronic kidney disease. Will try some oral Phenergan as well as diphenhydramine to see if that helps. May consider high-dose dexamethasone if refractory. Patient states that she gets a rapid heart rate with acetaminophen. Rather atypical reaction with acetaminophen but that she may build to take that since she will be monitored on telemetry. 3. Hypertension: Patient was taking losartan at home. Given the chronic kidney disease, that will be stopped. Patient will continue with amlodipine and that may need to be titrated upwards. 4. VTE prophylaxis: Moderate risk. Subcu heparin. 5. Advanced care planning: Patient wishes to remain full CODE STATUS. Case discussed with the patient's at bedside. He had a lot of questions and asking if all of his children could be present. Informed him to confirm with the charge nurse regards to visiting restrictions. Did tell him that there would be a limit to number family members that can be present at one time. Apparently was also an issue as they do not have a telephone that there is a third alliance party who has a phone but they were informed that they would need to provide that individuals name plus the number as well as authorization to speak with them. Inpatient E&M: [id number] Init Hosp L3
[2019-06-24] MEDS: 0.9% Normal Saline 1,000 ML 200 ML IV (15:00)
[2019-06-24 15:14] VITALS: PULSE 77
--- NOTE | 2019-06-24 15:31 | CON.PCM_ITS ---
Subjective Date of Service:: 06/24/19 Chief Complaint: Hypercalcemia History of Present Illness: Ms. Georgina Chaparro is a 64 year old woman past medical history significant for chronic kidney disease who presented to [facility] emergency department earlier today at the urging of stage setting painter apprentice, Dr. Gomez after outpatient labs obtained on 06/21/2019 revealed serum calcium level of 16 (apparently they were unable to reach her by phone until this morning as she is [employer]). In the ED calcium returned 16.3, corrected 17.3. Patient was supported with IV Lasix, fluids and 30 mg of pamidronate. This is her third admission for hypercalcemia, patient was admitted 06/13/2019 following ED visit with complaints of acute abdominal pain and elevated serum calcium was incidentally noted during that work-up. SPEP revealed no evidence of monoclonal protein, vitamin D 1, 25 level noted to be elevated. PTH within normal limits. She underwent CT abdomen and pelvis 06/13/2019 which demonstrated a 7.1 x 7.5 cm left adnexal soft tissue density-felt to be a dermoid. Reports her very first admission for hypercalcemia occurred March 2016, at [facility] in [place]. Per patient self-report she was given some fluids but got no answers. Admits she followed recommendations by her stage setting painter apprentice for routine blood work for short period of time but then stopped going. Was lost to follow-up with nephrology and primary care until approximately November 2018. At that time she states she did have routine blood work and her calcium level was approximately 11. Upon entering the room patient is sitting upright in bed talking with spouse at the bedside. She denies reflux/heartburn or taking Tums or excessive dairy intake. Has experienced a 10 pound weight loss in the last 14 days unintentional. Denies night sweats, dysphagia, enlarged lymph nodes that she may have noted under her arms or in her groin, and swelling or pain of her extremities. Admits she omitted several [id number] supplements when she engaged in med GFRANQ. States that she has been taking Dr. Gardner's formula 1 intestinal supplement daily times approximately 5 years (this is labeled as a colon cleanse), R Garden brand quadrant enzyme 2 capsules twice daily, Fore[employer] Living brand garlic time supplement twice daily and [employer] brand fish oil supplement 1 twice daily. No EtOH or tobacco use. Has never undergone screening colonoscopy or mammogram. Denies any family history of malignancy. Past Medical History: Chronic Problems (Last Reviewed 06/24/19 @ 14:[address] Balta Gayle, DO) Hypertension (Chronic) Dermoid cyst of ovary (Chronic) Acute on chronic renal failure (Chronic) CKD (chronic kidney disease) stage 4, GFR 15-29 ml/min (Chronic) Nephrolithiasis (Chronic) Hypercalcemia (Chronic) Past Medical/Surgical History: Past Medical History - Most Recent Inpatient Visit Past Medical History Start: 06/24/19 14:37 Text: Status: Complete Freq: ONCE Protocol: Document 06/24/19 14:37 MAREK (Rec: 06/24/19 14:49 MAREK [id number]) BMI Required to complete PMH What is Patient's BMI 59.1 Past Medical History Unable History Recalled No Query Text:Pt Unable/Family Not Present Neurologic Medical History Hx Stroke/TIA No Hx Dementia/Alzheimer's No Hx Parkinson's Disease No Hx Seizures No Hx Multiple Sclerosis No Hx Migraines Yes Cardiac Medical History VTE Present on Admission No Hx of Deep Vein Thrombosis/VTE/PE No Hx Hypertension Yes Hx Chest Pain/Angina No Hx Heart Attack No Hx Cardiac Surgery/Stents/Etc. No Hx Heart Failure No Hx Pacemaker/AICD No Hx Irregular Heartbeat and/or Afib No Hx Anticoagulant Therapy No Query Text:(Coumadin, Aspirin, Plavix, Xarelto, etc.) Hx Pain in Legs when Walking/Leg Cramps No Respiratory Medical History Hx COPD No Hx Emphysema No Hx Smoking No Smoking Status Never smoker Hx Tobacco Use in last 12 months No Hx Sleep Apnea No Do you snore loudly (louder than talking No or can be heard through closed doors)? Do you often feel tired/ fatigued/ No sleepy during daytime? Has anyone observed you stop breathing No during sleep? STOP Results Negative GI Medical History Hx Ulcer No Hx Hepatitis No Hx Cirrhosis No Hx GI Bleed No Hx Unplanned Weight Loss No Genitourinary Medical History Indwelling Catheter in Place on Arrival/ No Admission Hx Renal Disease Yes Hx Dialysis No Musculoskeletal History Hx Arthritis No Hx Rheumatoid Arthritis No Endocrine Medical History Hx Diabetes No Hx Thyroid Disease No Hematologic Medical History Hx of Blood Transfusion No Hx of Transfusion in last 3 Months No Ever experience any problems with No transfusion(s)? Hx of Preganancy in last 3 Months No Nurse Filling Out Transfusion & JLENDON Questions: Date: 06/24/19 Time: 14:48 Psycho/Social Medical History Hx Depression No Hx Anxiety No Hx Behavior Disorder No Hx Alcohol Use No Hx Substance Use No Other Medical History Hx Blood Disorders No Hx Anemia No Hx Cancer No Hx Drug Resistant Organism No Wound/Pressure Injury Present on Arrival No /Admission Query Text:If yes, chart assessment in Shift/Clinical Findings Central Line/PICC/VAD Present on Arrival No /Admission Antibiotics within last 7 days? No Methicillin Resistant Staphylococcus aureus Screening Active MRSA No Risk for Readmission Number of Risk Factors 1 At Risk for Readmission Patient is Not at Risk Patient is eligible for Call Back N Past Medical History (Last Reviewed 06/24/19 @ 14:[address] Balta Gayle, DO) Hypercalcemia (Acute) HTN (hypertension) (Chronic) Maternal Family History: - - no malignancy Paternal Family History: Hypertension - Social History Lives: Spouse/ Significant Other Smoking Status: Never smoker Allergies/Adverse Reactions: Allergy/AdvReac Type Severity Reaction Status Date / Time acetaminophen [From Tylenol] AdvReac Other Verified 06/24/19 11:40 Review of Systems Constitutional:: Denies: Fever, Sweats, Weight loss, Appetite change, Chills Cardiovascular:: Denies: Chest pain, Palpitations, Dyspnea on exertion, Orthopnea, PND, Shortness of breath Respiratory: Denies: Cough, Hemoptysis, Shortness of Breath, Wheezing Gastrointestinal:: Denies: Abdominal pain, Nausea, Vomiting, Diarrhea, Constipat ion, Melena, Hematochezia Genitourinary: Denies: Dysuria, Hematuria, 15, Flank pain Musculoskeletal:: Denies: Back pain, Myalgia, Arthralgia Skin: Denies: Rash, Skin Changes, Wounds Neurological:: Reports: Headache. Denies: Dizziness, Numbness, Tingling, Visual changes, Tinnitus, Hearing loss Psychiatric: Denies: Anxiety, Depression, Homicidal Ideations, Suicidal Ideations Vital Signs Height 5 ft 6 in Weight: 130 lb 4.691 oz Weight in Pounds 130.3 lbs Pulse Ox 99 Temperature 98.7 F Pulse Rate 77 Respiratory Rate 16 Blood Pressure 161/84 - Physical Exam General: Alert, Oriented x3, No apparent distress HEENT: Atraumatic, PERRLA, EOMI, Normocephalic, - - wears glasses Oropharynx:: Negative for: Dry mucosa, Ulcerated lesions Neck:: Supple, Trachea midline. Negative for: JVD, bilateral Cardiac:: Regular rate, Regular rhythm, Normal S1, Normal S2. Negative for: Murmur Lungs: Clear to auscultation, Excusion symmetrical. Negative for: Rhonchi, Wheezes Abdomen:: Bowel sounds x 4, Soft, Non-tender, Non-distended. Negative for: Hepatosplenomegaly Extremities:: Negative for: Cyanosis, Edema Neurological: Neuro grossly intact Skin:: Negative for: Lesions, Rash, Petechiae, Ecchymosis Psychiatric:: Appropriate affect, Euthymic Lymphatics:: Negative for: Cervical lymphadenopathy, Supraclavicular lymphadenopathy, Axillary lymphadenopathy Breast:: - - Bilateral breast without palpable masses, skin abnormalities such as dimpling, nipple discharge or retraction no axillary adenopathy bilateral Laboratory Data: Laboratory Tests 06/24/19 06/24/19 Range/Units 12:20 12:20 WBC 11.3 H (4.4-11.0) K/mm3 RBC 4.16 L (4.2-5.4) M/mm3 Hgb 12.5 (12.0-15.0) g/dL Hct 36.9 L (37-47) % MCV 88.7 (81-99) fL MCH 30.0 (27.0-32.0) pg MCHC 33.9 (32-36) g/dL RDW Std Deviation 35.8 (35.1-43.9) fl RDW Coeff of David 11.1 L (11.6-14.6) % Plt Count 454 H (150-450) K/mm3 MPV 9.5 (6.2-12.0) fl Immature Gran % (Auto) 0.800 (0.0-0.9) % Neut % (Auto) 75.0 H (47-70) % Lymph % (Auto) 16.0 L (19-41) % Coffee % (Auto) 7.2 (0-10) % Eos % (Auto) 0.6 (0-5) % Baso % (Auto) 0.4 (0-1) % Absolute Neuts (auto) 8.5 H (2.0-7.7) X10^3/uL Absolute Lymphs (auto) 1.81 (0.83-4.51) X10^3/uL Nucleated RBC % 0 (0-5) % Sodium 133 L (136-145) mmol/L Potassium 3.7 (3.5-5.1) mmol/L Chloride 96 L (98-107) mmol/L Carbon Dioxide 32.0 (21.0-32.0) mmol/L Anion Gap 5 (5-15) BUN 43 H (7-18) mg/dL Creatinine 2.48 H (0.55-1.02) mg/dL Estim Creat Clear Calc 21.45 ml/min Est GFR (MDRD) Af Amer 25 L (>60) mL/min Est GFR (MDRD) Non-Af 21 L (>60) mL/min BUN/Creatinine Ratio 17.3 (10-20) RATIO Glucose 95 (74-106) mg/dL Calcium 16.3 H* (8.5-10.1) mg/dL Assessment and Plan Ms. Georgina Mina is a 64-year-old woman with past medical history significant for chronic kidney disease who is experiencing persistent hypercalcemia. 1. Hypercalcemia-serum calcium today 16.3, corrected 17.3. Patient was provided Lasix in the ED and pamidronate, currently receiving IV hydration. CT abdomen and pelvis obtained 06/13/2019 demonstrated a 7.1 x 7.5 cm left adnexal soft tissue density?thought to be a dermoid. No M spike identified on SPEP from last week. Although vitamin D level was elevated. PTH within normal limits. Unknown if any of her otc supplements are contributing to hypercalcemia? Differentials include hypercalcemia of malignancy (solid tumor versus lymphoma) and sarcoidosis. Advise repeat PTH. Obtain Ca1 25, TSH, LDH and CT chest and soft tissue neck?no contrast. Images will be limited given renal dysfunction. If albumin corrected serum calcium is greater than 13.5, give 90 mg pamidronate with retreatment in 7 days continue aggressive hydration. Case discussed with Dr. Merritt who was in agreement with aforementioned plan. [facility] care will continue to follow as clinical picture evolves. Judy Poole, MSN, SOLAR PROJECT MANAGER, AOCNP Medications: Medications Added to Medication List This Visit Category Date Time Status 0.9% Normal Saline 1,000 ml Med 06/24/19 15:15 Active IV 125 mls/hr 0.9% Normal Saline 1,000 ml Med 06/24/19 14:35 Active IV 200 mls/hr 0.9% Saline Lock Med 06/24/19 14:45 Active 10 - 40 ml IV UD PRN Acetaminophen [Tylenol] Med 06/24/19 15:15 Active 650 mg PO Q6H PRN PRN Amlodipine [Norvasc] Med 06/25/19 10:00 Active 5 mg PO DAILY DiphenhydrAMINE [Benadryl] Med 06/24/19 15:15 Active 50 mg PO TID PRN PRN Heparin Injection (Vial) [Heparin Na] Med 06/24/19 22:00 Active 5,000 unit SC Q8 Ondansetron [Zofran] Med 06/24/19 15:15 Active 4 mg IV Q8H PRN PRN Pamidronate Disodium [Aredia] 30 mg Med 06/24/19 14:32 Ordered 0.9% Normal Saline 250 ml IV X1 proMETHazine tablet [Phenergan tablet] Med 06/24/19 15:15 Active 25 mg PO TID PRN Primary Care Provider: Dawna Peres PA-C Referring Provider: - Problem List (1) Hypercalcemia Status: Chronic
[2019-06-24 17:58] VITALS: BP 162/79; PULSE 84; RESP 18; TEMP 36.7; O2SAT 98
[2019-06-24 18:21] LABS: Anion Gap 7 (5-15); BUN 46 mg/dL (7-18); BUN/Creat Ratio 18.1 RATIO (10-20); Calcium,Total 14.8 mg/dL (8.5-10.1); Chloride 100 mmol/L (98-107); Creatinine, Serum 2.54 mg/dL (0.55-1.02); EST Glomerular Filtration Rate 20 mL/min (>60); Est Glom Filt Rate - Afr Amer 25 mL/min (>60); Estimated Creatinine Clearance 20.88 ml/min; Glucose 156 mg/dL (74-106); Potassium 3.5 mmol/L (3.5-5.1); Sodium Level 136 mmol/L (136-145)
[2019-06-24 20:03] VITALS: PULSE 82
[2019-06-24 22:00] VITALS: BP 153/87; PULSE 77; RESP 16; TEMP 36.8; O2SAT 99
[2019-06-24] MEDS: 0.9% Normal Saline 1,000 ML 125 ML IV (22:15)
[2019-06-24] MEDS: Heparin Injection (Vial) 5,000 UNIT/ML VIAL 5000 UNIT SC (22:15)
[2019-06-24] MEDS: Acetaminophen 325 MG Tablet 650 MG PO (23:17)
[2019-06-25] VITALS (9 sets, daily range): BP systolic 130–156; BP diastolic 61–89; PULSE 69–79; RESP 16–18; TEMP 36.6–37; O2SAT 98–100
[2019-06-25] MEDS: DiphenhydrAMINE 25 MG Capsule 50 MG PO ×2 (02:03→22:04)
[2019-06-25] MEDS: 0.9% Normal Saline 1,000 ML 125 ML IV (04:07)
[2019-06-25 06:58] LABS: Albumin, Serum 2.7 g/dL (3.2-5.0); BUN 38 mg/dL (7-18); BUN/Creat Ratio 16.2 RATIO (10-20); Chloride 107 mmol/L (98-107); Creatinine, Serum 2.35 mg/dL (0.55-1.02); EST Glomerular Filtration Rate 22 mL/min (>60); Est Glom Filt Rate - Afr Amer 27 mL/min (>60); Estimated Creatinine Clearance 22.56 ml/min; Glucose 78 mg/dL (74-106); Phosphorus 2.8 mg/dL (2.5-4.9); Potassium 3.8 mmol/L (3.5-5.1); Sodium Level 139 mmol/L (136-145)
[2019-06-25] MEDS: Acetaminophen 325 MG Tablet 650 MG PO ×2 (08:07→22:08)
--- NOTE | 2019-06-25 08:37 | CT_ITS ---
STUDY: CT CHEST WITHOUT CONTRAST REASON FOR EXAM: Female, 64 years old. HYPERCALCEMIA, creatinine-2.35. Hx of AAA and HTN. RADIATION DOSAGE (If Supplied By Facility): CTDIvol = ( 9.68 ) mGy, DLP = ( 572.69 ) mGycm TECHNIQUE: Transaxial imaging was performed without the administration of intravenous contrast material. Multiplanar coronal and sagittal images were reformatted. Individualized dose optimization techniques were used for this CT. COMPARISON: None. FINDINGS: There is a mild degree of increased markings at the lung bases suggests probable bibasilar scarring. There is no demonstrated pleural abnormality. There are calcifications of the coronary arteries. There are multiple small lymph nodes within the mediastinum, which are normal in size and morphology most compatible with reactive lymph hyperplasia. Normal hilar regions. Normal unenhanced pulmonary arteries. There is atherosclerotic calcification of the aortic arch with tortuosity and elongation of the aortic arch and descending thoracic aorta. There are multi-level degenerative changes of the thoracic spine. Mildly dilated esophagus with air and fluid within. CT/Chest without Contrast IMPRESSION: Mild degree of the increased linear markings at the lung bases suggestive of scarring. Mild dilatation of the esophagus with air and fluid. Electronically Signed: Kole Mann, at 10:14 EDT , Service support ,
--- NOTE | 2019-06-25 08:37 | CT_ITS ---
INDICATION: HYPERCALCEMIA, creatinine-2.35. Hx of AAA and HTN. EXAMINATION: CT NECK - CT Neck Chest W/O Contrast Injection TECHNIQUE: Multiple axial images were obtained of the neck. A radiation dose optimization technique was used for this scan. IV Contrast dosage and agent: None. COMPARISON: None. FINDINGS: NASOPHARYNX: Unremarkable. SUPRAHYOID NECK: Unremarkable oropharynx, oral cavity, parapharyngeal space, and retropharyngeal space. INFRAHYOID NECK: Unremarkable larynx, hypopharynx, and supraglottis. THYROID: Small hypodense nodules are seen in the thyroid gland bilaterally suggestive of goiterous change. SALIVARY GLANDS: There is a 3.5 mm hypodensity in the left parotid gland most likely representing a small cyst. LYMPH NODES: No cervical or supraclavicular lymphadenopathy. VASCULAR STRUCTURES: Atherosclerotic calcification of the carotid bifurcations bilaterally. VISUALIZED PORTIONS OF THE ORBITS, PARANASAL SINUSES, MASTOID AIR CELLS AND SKULL BASE: Unremarkable. BONES: Unremarkable. THORACIC INLET: Clear lung apices. 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 Electronically Signed: Kole Mann, at 10:11 EDT , Service support ,
[2019-06-25 09:38] LABS: LDH 165 U/L (84-246); Thyroid Stim Hormone (TSH) 2.83 uIU/mL (0.358-3.74)
[2019-06-25] MEDS: 0.9% Saline Lock 10 ML Syringe IV (09:59)
[2019-06-25] MEDS: Furosemide 40 MG/4 ML Vial IV (09:59)
[2019-06-25] MEDS: amLODIPine 5 MG Tablet PO (10:05)
--- NOTE | 2019-06-25 11:04 | PCM.PN.REN ---
Patient Problems: Active and Suspected Problems (Last Reviewed 06/24/19 @ 14:[address] Balta Gayle, DO) AAA (abdominal aortic aneurysm) (Acute) Subjective: headache improved with tylenol this morning, calcium improving to 14 today. BP stable. PPD not placed yet. - Physical Exam Vitals/I&O's: Vital Signs Temp Pulse Resp BP Pulse Ox 98 F 77 16 142/83 H 99 06/25/19 08:00 06/25/19 08:00 06/25/19 08:00 06/25/19 08:00 06/25/19 08:00 Oxygen Delivery Method Room Air Weight: 59.1 kg Body Mass Index (BMI) 21.0 Intake and Output for Last 24 Hours 06/23/19 06/24/19 06/25/19 23:59 23:59 23:59 Intake Total 1250 / 1850 2541.66 / 2541.66 Output Total 300 / 2500 4500 / 4500 Balance 950 / -650 -1958.34 / -1958.34 General: Alert, Oriented x3, Cooperative, No apparent distress Lungs: Clear to auscultation Cardiovascular: Regular rate Abdomen: Bowel Sounds Present, Soft, Non Tender, Non-Distended Extremities: No edema Psych/Mental Status: Normal Affect, Appropriate Laboratory Results 06/24/19 12:20: WBC 11.3 H, RBC 4.16 L, Hgb 12.5, Hct 36.9 L, MCV 88.7, MCH 30.0, MCHC 33.9, RDW Std Deviation 35.8, RDW Coeff of David 11.1 L, Plt Count 454 H, MPV 9.5, Immature Gran % (Auto) 0.800, Neut % (Auto) 75.0 H, Lymph % (Auto) 16.0 L, [place] % (Auto) 7.2, Eos % (Auto) 0.6, Baso % (Auto) 0.4, Absolute Neuts (auto) 8.5 H, Absolute Lymphs (auto) 1.81, Nucleated RBC % 0 06/24/19 12:20: Sodium 133 L, Potassium 3.7, Chloride 96 L, Carbon Dioxide 32.0, Anion Gap 5, BUN 43 H, Creatinine 2.48 H, Estim Creat Clear Calc 21.45, Est GFR (MDRD) Af Amer 25 L, Est GFR (MDRD) Non-Af 21 L, BUN/Creatinine Ratio 17.3, Glucose 95, Calcium 16.3 H* 06/24/19 12:20: Ionized Calcium Pending 06/24/19 15:44: Urine Immunofixation Pending 06/24/19 17:50: Angiotensin Convert Enz Pending, CA 125 Antigen Pending, IgG Pending, IgA Pending, IgM Pending 06/24/19 17:50: c-ANCA Antibody Pending, p-ANCA Antibody Pending 06/24/19 17:50: Sodium 136, Potassium 3.5, Chloride 100, Carbon Dioxide 29.0, Anion Gap 7, BUN 46 H, Creatinine 2.54 H, Estim Creat Clear Calc 20.88, Est GFR (MDRD) Af Amer 25 L, Est GFR (MDRD) Non-Af 20 L, BUN/Creatinine Ratio 18.1, Glucose 156 H, Calcium 14.8 H* 06/25/19 06:18: Sodium 139, Potassium 3.8, Chloride 107, Carbon Dioxide 30.0, Anion Gap Cancelled, BUN 38 H, Creatinine 2.35 H, Estim Creat Clear Calc 22.56, Est GFR (MDRD) Af Amer 27 L, Est GFR (MDRD) Non-Af 22 L, BUN/Creatinine Ratio 16.2, Glucose 78, Calcium 14.0 H*, Phosphorus 2.8, Albumin 2.7 L 06/25/19 06:18: Angiotensin Convert Enz Cancelled 06/25/19 06:18: Lactate Dehydrogenase 165, TSH 2.83 Current Medications Acetaminophen (Tylenol) 650 mg PO Q6H PRN PRN PRN Reason: Pain Score 1-10/Temp > 100.7 F Last Admin: 06/25/19 08:07 Dose: 650 mg Documented by: Amlodipine Besylate (Norvasc) 5 mg PO DAILY [facility] Last Admin: 06/25/19 10:05 Dose: 5 mg Documented by: Diphenhydramine HCl (Benadryl) 50 mg PO TID PRN PRN PRN Reason: MIGRAINE SYMPTOMS Last Admin: 06/25/19 02:03 Dose: 50 mg Documented by: Heparin Sodium (Porcine) (Heparin Na) 5,000 unit SC Q8 [facility] Last Admin: 06/25/19 04:12 Dose: Not Given Documented by: Sodium Chloride () 1,000 mls @ 150 mls/hr IV .Q6H40M ELOY Last Infusion: 06/25/19 09:59 Dose: 150 mls/hr Documented by: Pamidronate Disodium 30 mg/ (Sodium Chloride) 253.3333 mls @ 250 mls/hr IV X1 ONE Stop: 06/25/19 11:58 Ondansetron HCl (Zofran) 4 mg IV Q8H PRN PRN PRN Reason: NAUSEA/VOMITING Promethazine HCl (Phenergan Tablet) 25 mg PO TID PRN PRN Reason: MIGRAINE SYMPTOMS Sodium Chloride () 10 - 40 ml IV UD PRN PRN Reason: SALINE FLUSH Last Admin: 06/25/19 09:59 Dose: 10 ml Documented by: Medical Necessity - Tobacco Use Smoking Status: Never smoker Assessment/Plan All Active Problems (Last Reviewed 06/24/19 @ 14:[address] Balta Gayle, DO) AAA (abdominal aortic aneurysm) (Acute) Abdominal pain (Acute) 1. Chronic, persistent hypercalcemia with calcium level 16 improved to 14 with iv fluids and aredia. Will redose aredia 30mg today. 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 ALEENA level, ANCA, NALDO, PPD pending. Will obtain ALEENA level rule out sarcoid. Hem/Onc consulted. Appreciate oncology note. 2. CKD stage IV. Creatinine 2.35 today. Hold Losartan. Baseline creatinine 1.8 during last hospitalization after iv fluids. 3. Dermoid cyst left pelvis 4. Hypertension resume amlodipine. 5. Fusiform AAA. No prior CT for comparison. Pt has been aware of the AAA from prior CT done. f/u with vascular as outpt.
--- NOTE | 2019-06-25 11:13 | PN_ITS ---
- Problem List (1) Hypercalcemia Status: Chronic Subjective Date of Service:: 06/25/19 Hypercalcemia Upon entering the room, patient is conversing with Dr. Gomez and spouse. States she feels great. Reporting that her headache from yesterday has dissipated. Denies any outstanding complaints since she was evaluated by me yesterday. Past Medical History: Chronic Problems (Last Reviewed 06/24/19 @ 14:[address] Balta Gayle, DO) Hypertension (Chronic) Dermoid cyst of ovary (Chronic) Acute on chronic renal failure (Chronic) CKD (chronic kidney disease) stage 4, GFR 15-29 ml/min (Chronic) Nephrolithiasis (Chronic) Hypercalcemia (Chronic) Past Medical History - Most Recent Inpatient Visit Past Medical History Start: 06/24/19 14:37 Text: Status: Complete Freq: ONCE Protocol: Document 06/24/19 14:37 MAREK (Rec: 06/24/19 14:49 MAREK [id number]) BMI Required to complete PMH What is Patient's BMI 59.1 Past Medical History Unable History Recalled No Query Text:Pt Unable/Family Not Present Neurologic Medical History Hx Stroke/TIA No Hx Dementia/Alzheimer's No Hx Parkinson's Disease No Hx Seizures No Hx Multiple Sclerosis No Hx Migraines Yes Cardiac Medical History VTE Present on Admission No Hx of Deep Vein Thrombosis/VTE/PE No Hx Hypertension Yes Hx Chest Pain/Angina No Hx Heart Attack No Hx Cardiac Surgery/Stents/Etc. No Hx Heart Failure No Hx Pacemaker/AICD No Hx Irregular Heartbeat and/or Afib No Hx Anticoagulant Therapy No Query Text:(Coumadin, Aspirin, Plavix, Xarelto, etc.) Hx Pain in Legs when Walking/Leg Cramps No Respiratory Medical History Hx COPD No Hx Emphysema No Hx Smoking No Smoking Status Never smoker Hx Tobacco Use in last 12 months No Hx Sleep Apnea No Do you snore loudly (louder than talking No or can be heard through closed doors)? Do you often feel tired/ fatigued/ No sleepy during daytime? Has anyone observed you stop breathing No during sleep? STOP Results Negative GI Medical History Hx Ulcer No Hx Hepatitis No Hx Cirrhosis No Hx GI Bleed No Hx Unplanned Weight Loss No Genitourinary Medical History Indwelling Catheter in Place on Arrival/ No Admission Hx Renal Disease Yes Hx Dialysis No Musculoskeletal History Hx Arthritis No Hx Rheumatoid Arthritis No Endocrine Medical History Hx Diabetes No Hx Thyroid Disease No Hematologic Medical History Hx of Blood Transfusion No Hx of Transfusion in last 3 Months No Ever experience any problems with No transfusion(s)? Hx of Preganancy in last 3 Months No Nurse Filling Out Transfusion & JLENDON Questions: Date: 06/24/19 Time: 14:48 Psycho/Social Medical History Hx Depression No Hx Anxiety No Hx Behavior Disorder No Hx Alcohol Use No Hx Substance Use No Other Medical History Hx Blood Disorders No Hx Anemia No Hx Cancer No Hx Drug Resistant Organism No Wound/Pressure Injury Present on Arrival No /Admission Query Text:If yes, chart assessment in Shift/Clinical Findings Central Line/PICC/VAD Present on Arrival No /Admission Antibiotics within last 7 days? No Methicillin Resistant Staphylococcus aureus Screening Active MRSA No Risk for Readmission Number of Risk Factors 1 At Risk for Readmission Patient is Not at Risk Patient is eligible for Call Back N Past Medical History (Last Reviewed 06/24/19 @ 14:[address] Balta Gayle, DO) Hypercalcemia (Acute) HTN (hypertension) (Chronic) Maternal Family History: - - no malignancy Paternal Family History: Hypertension - Social History Lives: Spouse/ Significant Other Smoking Status: Never smoker Review of Systems Constitutional:: Denies: Fever, Sweats, Weight loss, Appetite change, Chills Cardiovascular:: Denies: Chest pain, Palpitations, Dyspnea on exertion, Orthopnea, PND, Shortness of breath Respiratory: Denies: Cough, Hemoptysis, Shortness of Breath, Wheezing Gastrointestinal:: Denies: Abdominal pain, Nausea, Vomiting, Diarrhea, Constipation, Hematochezia Genitourinary: Denies: Dysuria, Hematuria, 15, Flank pain Musculoskeletal:: Denies: Back pain, Myalgia, Arthralgia Skin: Denies: Rash, Skin Changes, Wounds Neurological:: Denies: Headache, Dizziness, Numbness, Tingling, Visual changes, Tinnitus, Hearing loss Psychiatric: Denies: Anxiety, Depression, Homicidal Ideations, Suicidal Ideations Vital Signs Height 5 ft 6 in Weight: 130 lb 4.691 oz Weight in Pounds 130.3 lbs Pulse Ox 99 Temperature 98 F Pulse Rate 77 Respiratory Rate 16 Blood Pressure [BP] 153/87 Blood Pressure 142/83 Blood Pressure Position [BP] Semi-Fowlers Blood Pressure Position Sitting - Physical Exam General: Alert, Oriented x3, No apparent distress HEENT: Atraumatic, Normocephalic Oropharynx:: Negative for: Dry mucosa, Ulcerated lesions Neck:: Supple, Trachea midline. Negative for: JVD, bilateral Cardiac:: Regular rate, Regular rhythm, Normal S1, Normal S2. Negative for: Murmur Lungs: Clear to auscultation, Excusion symmetrical. Negative for: Rhonchi, Wheezes Abdomen:: Bowel sounds x 4, Soft, Non-tender, Non-distended. Negative for: Hepatosplenomegaly Extremities:: Negative for: Cyanosis, Edema Neurological: Neuro grossly intact Skin:: Negative for: Lesions, Rash, Petechiae, Ecchymosis Psychiatric:: Appropriate affect, Euthymic Lymphatics:: Negative for: Cervical lymphadenopathy, Supraclavicular lymphadenopathy, Axillary lymphadenopathy Laboratory Data: Laboratory Tests 06/25/19 06/25/19 06/25/19 Range/Units 06:18 06:18 06:18 WBC (4.4-11.0) K/mm3 RBC (4.2-5.4) M/mm3 Hgb (12.0-15.0) g/dL Hct (37-47) % MCV (81-99) fL MCH (27.0-32.0) pg MCHC (32-36) g/dL RDW Std Deviation (35.1-43.9) fl RDW Coeff of David (11.6-14.6) % Plt Count (150-450) K/mm3 MPV (6.2-12.0) fl Immature Gran % (Auto) (0.0-0.9) % Neut % (Auto) (47-70) % Lymph % (Auto) (19-41) % [place] % (Auto) (0-10) % Eos % (Auto) (0-5) % Baso % (Auto) (0-1) % Absolute Neuts (auto) (2.0-7.7) X10^3/uL Absolute Lymphs (auto) (0.83-4.51) X10^3/uL Nucleated RBC % (0-5) % Sodium 139 (136-145) mmol/L Potassium 3.8 (3.5-5.1) mmol/L Chloride 107 (98-107) mmol/L Carbon Dioxide 30.0 (21.0-32.0) mmol/L Anion Gap Cancelled (5-15) BUN 38 H (7-18) mg/dL Creatinine 2.35 H (0.55-1.02) mg/dL Estim Creat Clear Calc 22.56 ml/min Est GFR (MDRD) Af Amer 27 L (>60) mL/min Est GFR (MDRD) Non-Af 22 L (>60) mL/min BUN/Creatinine Ratio 16.2 (10-20) RATIO Glucose 78 (74-106) mg/dL Calcium 14.0 H* (8.5-10.1) mg/dL Phosphorus 2.8 (2.5-4.9) mg/dL Lactate Dehydrogenase 165 (84-246) U/L Albumin 2.7 L (3.2-5.0) g/dL Angiotensin Convert Enz Cancelled TSH 2.83 (0.358-3.74) uIU/mL 06/24/19 06/24/19 06/24/19 Range/Units 17:50 12:20 12:20 WBC 11.3 H (4.4-11.0) K/mm3 RBC 4.16 L (4.2-5.4) M/mm3 Hgb 12.5 (12.0-15.0) g/dL Hct 36.9 L (37-47) % MCV 88.7 (81-99) fL MCH 30.0 (27.0-32.0) pg MCHC 33.9 (32-36) g/dL RDW Std Deviation 35.8 (35.1-43.9) fl RDW Coeff of David 11.1 L (11.6-14.6) % Plt Count 454 H (150-450) K/mm3 MPV 9.5 (6.2-12.0) fl Immature Gran % (Auto) 0.800 (0.0-0.9) % Neut % (Auto) 75.0 H (47-70) % Lymph % (Auto) 16.0 L (19-41) % [place] % (Auto) 7.2 (0-10) % Eos % (Auto) 0.6 (0-5) % Baso % (Auto) 0.4 (0-1) % Absolute Neuts (auto) 8.5 H (2.0-7.7) X10^3/uL Absolute Lymphs (auto) 1.81 (0.83-4.51) X10^3/uL Nucleated RBC % 0 (0-5) % Sodium 136 133 L (136-145) mmol/L Potassium 3.5 3.7 (3.5-5.1) mmol/L Chloride 100 96 L (98-107) mmol/L Carbon Dioxide 29.0 32.0 (21.0-32.0) mmol/L Anion Gap 7 5 (5-15) BUN 46 H 43 H (7-18) mg/dL Creatinine 2.54 H 2.48 H (0.55-1.02) mg/dL Estim Creat Clear Calc 20.88 21.45 ml/min Est GFR (MDRD) Af Amer 25 L 25 L (>60) mL/min Est GFR (MDRD) Non-Af 20 L 21 L (>60) mL/min BUN/Creatinine Ratio 18.1 17.3 (10-20) RATIO Glucose 156 H 95 (74-106) mg/dL Calcium 14.8 H* 16.3 H* (8.5-10.1) mg/dL Phosphorus (2.5-4.9) mg/dL Lactate Dehydrogenase (84-246) U/L Albumin (3.2-5.0) g/dL Angiotensin Convert Enz TSH (0.358-3.74) uIU/mL Diagnostic Data: Diagnostic Data Chest CT 06/25/19 08:37 IMPRESSION: Mild degree of the increased linear markings at the lung bases suggestive of scarring. Mild dilatation of the esophagus with air and fluid. 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 Electronically Signed: Kole Mann, at 10:11 EDT , Service support , Assessment and Plan Ms. Georgina Mina is a 64-year-old woman with past medical history significant for chronic kidney disease who is experiencing persistent hypercalcemia. 1. Hypercalcemia-serum calcium today 14 after 30 mg of pamidronate yesterday. LDH, TSH WNL. Non contrast, CT soft tissue neck and chest revealed no evidence for adenopathy or patterns consistent with sarcoidosis. CA 125 pending. Immunoglobulin levels pending. These results were reviewed with the patient. Discussed the potential for dietary/[id number] supplements as potential contributor to hypercalcemia. Patient to follow-up with [facility] upon discharge if there aberrancies and immunoglobulin levels or Ca 125. Case discussed with Dr. Ding who was in agreement with aforementioned plan. Judy Poole, MSN, [employer], AOCNP Medications: Prescriptions This Visit Medication Instructions Recorded Garlic 1 ea PO DAILY 06/24/19 Losartan Potassium [Cozaar] 50 mg PO DAILY 06/24/19 Medications Added to Medication List This Visit Category Date Time Status Amlodipine [Norvasc] Med 06/25/19 10:00 Active 5 mg PO DAILY Pamidronate Disodium [Aredia] 30 mg Med 06/25/19 10:58 Ordered 0.9% Normal Saline 250 ml IV X1 Primary Care Provider: Dawna Peres PA-C Referring Provider:
--- NOTE | 2019-06-25 11:31 | CASEMGMT ---
Readmission chart review: Pt was initially admitted 06/12-06/14/19 for Hypercalcemia and per note, pt has admissions for same in the past but not at this facility. Pt is unsure of any hyperparathyroidism history. PTH was <2.0 at that time and pt was discharged as calcium decreased. Pt then returned 06/24/19 after being sent in by palliative care nurse practitioner for calcium level of 15, which was drawn outpt on 06/21/19. Pt's only complaint was of HAHN which she states she has had since her last visit. Pt does have elevated Vitamin D 1, 25 level and heme/onc has been consulted. CM to follow for any further discharge planning/needs. SSttin RN CM
[2019-06-25] MEDS: 0.9% Normal Saline 1,000 ML 150 ML IV ×2 (14:11→22:03)
--- NOTE | 2019-06-25 14:40 | PN_ITS ---
Patient Problems: Active and Suspected Problems (Last Reviewed 06/24/19 @ 14:[address] Balta Gayle, DO) AAA (abdominal aortic aneurysm) (Acute) Reason for Visit: Follow-up on hypercalcemia Subjective: Patient was seen and examined. She feels improved. Denies any headache, dizziness, palpitations Objective: Physical exam: General: Alert, Cooperative, No apparent distress HEENT: Atraumatic, Normocephalic Oral: Moist Mucosa, No Gingival or Mucosal Lesions/ Ulcerations Neck: No Nodes, Trachea Midline Lungs: Normal air movement, No wheeze, - - bibasilar crackles Cardiovascular: Regular Rhythm, Normal S1, Normal S2, No murmurs, No Ectopic Activity Abdomen: Bowel Sounds Present, Soft, Non Tender, Non-Distended, No Hepato-spl enomegaly Extremities: No edema, No Calf Tenderness Skin: No rashes, No breakdown Musculoskeletal: No Tenderness to Palpation of Joints or Extremities, No Muscle Wasting Neurological: - - DTRs are 3-4 in the patellar reflex. No clonus. Psych/Mental Status: Normal Affect, Appropriate Vitals/I&O's: Vital Signs Temp Pulse Resp BP Pulse Ox 98 F 72 16 130/61 H 100 06/25/19 14:00 06/25/19 14:00 06/25/19 14:00 06/25/19 14:00 06/25/19 14:00 Oxygen Delivery Method Room Air Weight: 59.1 kg Body Mass Index (BMI) 21.0 Intake and Output for Last 24 Hours 06/23/19 06/24/19 06/25/19 23:59 23:59 23:59 Intake Total 1250 / 1850 3873.33 / 3873.33 Output Total 300 / 2500 6100 / 6100 Balance 950 / -650 -2226.67 / -2226.67 Laboratory Results 06/24/19 15:44: Urine Immunofixation Pending 06/24/19 17:50: Angiotensin Convert Enz Pending, CA 125 Antigen Pending, IgG Pending, IgA Pending, IgM Pending 06/24/19 17:50: c-ANCA Antibody Pending, p-ANCA Antibody Pending 06/24/19 17:50: Sodium 136, Potassium 3.5, Chloride 100, Carbon Dioxide 29.0, Anion Gap 7, BUN 46 H, Creatinine 2.54 H, Estim Creat Clear Calc 20.88, Est GFR (MDRD) Af Amer 25 L, Est GFR (MDRD) Non-Af 20 L, BUN/Creatinine Ratio 18.1, Glucose 156 H, Calcium 14.8 H* 06/25/19 06:18: Sodium 139, Potassium 3.8, Chloride 107, Carbon Dioxide 30.0, Anion Gap Cancelled, BUN 38 H, Creatinine 2.35 H, Estim Creat Clear Calc 22.56, Est GFR (MDRD) Af Amer 27 L, Est GFR (MDRD) Non-Af 22 L, BUN/Creatinine Ratio 16.2, Glucose 78, Calcium 14.0 H*, Phosphorus 2.8, Albumin 2.7 L 06/25/19 06:18: Angiotensin Convert Enz Cancelled 06/25/19 06:18: Lactate Dehydrogenase 165, TSH 2.83 Current Medications Acetaminophen (Tylenol) 650 mg PO Q6H PRN PRN PRN Reason: Pain Score 1-10/Temp > 100.7 F Last Admin: 06/25/19 08:07 Dose: 650 mg Documented by: Amlodipine Besylate (Norvasc) 5 mg PO DAILY [facility] Last Admin: 06/25/19 10:05 Dose: 5 mg Documented by: Diphenhydramine HCl (Benadryl) 50 mg PO TID PRN PRN PRN Reason: MIGRAINE SYMPTOMS Last Admin: 06/25/19 02:03 Dose: 50 mg Documented by: Heparin Sodium (Porcine) (Heparin Na) 5,000 unit SC Q8 [facility] Last Admin: 06/25/19 14:11 Dose: Not Given Documented by: Sodium Chloride () 1,000 mls @ 150 mls/hr IV .Q6H40M [facility] Last Admin: 06/25/19 14:11 Dose: 150 mls/hr Documented by: Ondansetron HCl (Zofran) 4 mg IV Q8H PRN PRN PRN Reason: NAUSEA/VOMITING Promethazine HCl (Phenergan Tablet) 25 mg PO TID PRN PRN Reason: MIGRAINE SYMPTOMS Sodium Chloride () 10 - 40 ml IV UD PRN PRN Reason: SALINE FLUSH Last Admin: 06/25/19 09:59 Dose: 10 ml Documented by: STROKE Vital Signs/Narrative: Vital Signs Temp Pulse Resp BP Pulse Ox 06/25/19 14:00 98 F 72 16 130/61 H 100 Medical Necessity - Tobacco Use Smoking Status: Never smoker Assessment/Plan All Active Problems (Last Reviewed 06/24/19 @ 14:[address] Balta Gayle, DO) AAA (abdominal aortic aneurysm) (Acute) Abdominal pain (Acute) 1. Hypercalcemia, unclear etiology, improved, corrected ca today is 15.04 Will continue on IVF, Lasix 40mg IV x1, given repeat pamidronate IV Will repeat Vitamin d levels Patient's will bring in all her herbal supplements 2. Migraine-like headache, resolved with Tylenol 3. Hypertension, controlled, continue on amlodipine 4. DVT PPx- Heparin SC Inpatient E&M: 55443 Subs Hosp L2
[2019-06-25] MEDS: Tuberculin,Purif.prot.deriv. 50 TU/ML Vial 5 ML ID (15:09)
[2019-06-25] MEDS: proMETHazine 25 MG Tablet PO (22:04)
[2019-06-26] VITALS (9 sets, daily range): BP systolic 146–159; BP diastolic 80–89; PULSE 70–92; RESP 14–17; TEMP 36.5–36.7; O2SAT 99–100
[2019-06-26] MEDS: hydrOXYzine 10 MG Tablet PO (01:21)
[2019-06-26] MEDS: 0.9% Normal Saline 1,000 ML 150 ML IV ×3 (04:06→18:02)
[2019-06-26] MEDS: Acetaminophen 325 MG Tablet 650 MG PO ×3 (04:08→18:04)
[2019-06-26 06:11] LABS: Absolute Lymphocyte Count 1.68 X10^3/uL (0.83-4.51); Absolute Neutrophil Count 5.8 X10^3/uL (2.0-7.7); Basophil# 0.05 X10^3/uL; Basophil% 0.6 % (0-1); Eosinophil# 0.15 X10^3/uL; Eosinophils% 1.8 % (0-5); Hematocrit 30.1 % (37-47); Hemoglobin 9.8 g/dL (12.0-15.0); Lymphocyte # 1.68 X10^3/ul (4.0); Lymphocyte % 19.7 % (19-41); Mean Corp Hgb Conc 32.6 g/dL (32-36); Mean Corpuscular Hgb 29.8 pg (27.0-32.0); Mean Corpuscular Volume 91.5 fL (81-99); Monocyte# 0.74 X10^3/uL; Monocyte% 8.7 % (0-10); NRBC Flagged by Analyzer 0 % (0-5); Neutrophil # 5.82 X10^3/uL (2.7-7.7); Neutrophil % 68.1 % (47-70); Platelet Count 369 K/mm3 (150-450); RBC Distribution Width CV 11.2 % (11.6-14.6); RBC Distribution Width SD 37.8 fl (35.1-43.9); Red Blood Count 3.29 M/mm3 (4.2-5.4); White Blood Count 8.5 K/mm3 (4.4-11.0)
[2019-06-26 06:41] LABS: Albumin, Serum 2.5 g/dL (3.2-5.0); BUN 32 mg/dL (7-18); BUN/Creat Ratio 12.7 RATIO (10-20); Calcium,Total 12.5 mg/dL (8.5-10.1); Chloride 111 mmol/L (98-107); Creatinine, Serum 2.51 mg/dL (0.55-1.02); EST Glomerular Filtration Rate 21 mL/min (>60); Est Glom Filt Rate - Afr Amer 25 mL/min (>60); Estimated Creatinine Clearance 21.13 ml/min; Glucose 82 mg/dL (74-106); Phosphorus 2.5 mg/dL (2.5-4.9); Potassium 3.5 mmol/L (3.5-5.1); Sodium Level 141 mmol/L (136-145)
[2019-06-26] MEDS: amLODIPine 5 MG Tablet PO (09:39)
--- NOTE | 2019-06-26 11:43 | PN.RENAL_ITS ---
Patient Problems: Active and Suspected Problems (Last Reviewed 06/24/19 @ 14:[address] Balta Gayle, DO) AAA (abdominal aortic aneurysm) (Acute) Subjective: Calcium remains elevated but improved to 12 today. TB skin test applied. Appetite good. Discussed protein supplements. Spouse at bedside - Physical Exam Vitals/I&O's: Vital Signs Temp Pulse Resp BP Pulse Ox 97.9 F 76 16 146/84 H 100 06/26/19 05:20 06/26/19 05:20 06/26/19 05:20 06/26/19 05:20 06/26/19 05:20 Oxygen Delivery Method Room Air Weight: 59.1 kg Body Mass Index (BMI) 21.0 Intake and Output for Last 24 Hours 06/24/19 06/25/19 06/26/19 23:59 23:59 23:59 Intake Total 1250 / 1850 5423.33 / 6023.33 2307.5 / 2307.5 Output Total 300 / 2500 7800 / 7800 1999 / 1999 Balance 950 / -650 -2376.67 / -1776.67 307.5 / 307.5 General: Alert, Oriented x3, Cooperative, No apparent distress Lungs: Clear to auscultation Cardiovascular: Regular rate Laboratory Results 06/26/19 05:55: WBC 8.5, RBC 3.29 L, Hgb 9.8 L, Hct 30.1 L, MCV 91.5, MCH 29.8, MCHC 32.6, RDW Std Deviation 37.8, RDW Coeff of David 11.2 L, Plt Count 369, MPV 9.0, Immature Gran % (Auto) 1.100 H, Neut % (Auto) 68.1, Lymph % (Auto) 19.7, [place] % (Auto) 8.7, Eos % (Auto) 1.8, Baso % (Auto) 0.6, Absolute Neuts (auto) 5.8, Absolute Lymphs (auto) 1.68, Nucleated RBC % 0 06/26/19 05:55: Sodium 141, Potassium 3.5, Chloride 111 H, Carbon Dioxide 25.0, BUN 32 H, Creatinine 2.51 H, Estim Creat Clear Calc 21.13, Est GFR (MDRD) Af Amer 25 L, Est GFR (MDRD) Non-Af 21 L, BUN/Creatinine Ratio 12.7, Glucose 82, Calcium 12.5 H, Phosphorus 2.5, Albumin 2.5 L 06/26/19 05:55: Vit D 1,25-Dihydroxy Pending 06/26/19 05:55: Magnesium 2.0 Current Medications Acetaminophen (Tylenol) 650 mg PO Q6H PRN PRN PRN Reason: Pain Score 1-10/Temp > 100.7 F Last Admin: 06/26/19 09:42 Dose: 650 mg Documented by: Amlodipine Besylate (Norvasc) 5 mg PO DAILY [facility] Last Admin: 06/26/19 09:39 Dose: 5 mg Documented by: Diphenhydramine HCl (Benadryl) 50 mg PO TID PRN PRN PRN Reason: MIGRAINE SYMPTOMS Last Admin: 06/25/19 22:04 Dose: 50 mg Documented by: Heparin Sodium (Porcine) (Heparin Na) 5,000 unit SC Q8 [facility] Last Admin: 06/26/19 06:27 Dose: Not Given Documented by: Sodium Chloride () 1,000 mls @ 150 mls/hr IV .Q6H40M [facility] Last Admin: 06/26/19 04:06 Dose: 150 mls/hr Documented by: Ondansetron HCl (Zofran) 4 mg IV Q8H PRN PRN PRN Reason: NAUSEA/VOMITING Promethazine HCl (Phenergan Tablet) 25 mg PO TID PRN PRN Reason: MIGRAINE SYMPTOMS Last Admin: 06/25/19 22:04 Dose: 25 mg Documented by: Sodium Chloride () 10 - 40 ml IV UD PRN PRN Reason: SALINE FLUSH Last Admin: 06/25/19 09:59 Dose: 10 ml Documented by: Medical Necessity - Tobacco Use Smoking Status: Never smoker Assessment/Plan All Active Problems (Last Reviewed 06/24/19 @ 14:[address] Balta Gayle, DO) AAA (abdominal aortic aneurysm) (Acute) Abdominal pain (Acute) 1. Chronic, persistent hypercalcemia with calcium level 16 improved to 12 today (corrected calcium 13.7) with iv fluids and aredia. Will need to check calcium level weekly with prn pamidronate. 2. CKD stage IV. Creatinine 2.5 today. Hold Losartan and lasix. Continue iv fluids. Baseline creatinine 1.8 during last hospitalization 3. Hypertension resume amlodipine, increase dose as needed. Clonidine prn SBP >180 on discharge 4. Constipation. No fleets, no mag products, no OTC products. Ok to use docusate, dulcolax, miralax, linzess. DW hospitalist, pt and pt spouse at bedside
--- NOTE | 2019-06-26 15:05 | PN_ITS ---
Patient Problems: Active and Suspected Problems (Last Reviewed 06/24/19 @ 14:[address] Balta Gayle, DO) AAA (abdominal aortic aneurysm) (Acute) Reason for Visit: Follow-up on hypercalcemia Subjective: Patient was seen and examined. Denied any new complaints. No headaches or dizziness or palpitation. Objective: Physical exam: General: Alert, Cooperative, No apparent distress HEENT: Atraumatic, Normocephalic Oral: Moist Mucosa, No Gingival or Mucosal Lesions/ Ulcerations Neck: No Nodes, Trachea Midline Lungs: Normal air movement, No wheeze, - - bibasilar crackles Cardiovascular: Regular Rhythm, Normal S1, Normal S2, No murmurs, No Ectopic Activity Abdomen: Bowel Sounds Present, Soft, Non Tender, Non-Distended, No Hepato- splenomegaly Extremities: No edema, No Calf Tenderness Skin: No rashes, No breakdown Musculoskeletal: No Tenderness to Palpation of Joints or Extremities, No Muscle Wasting Neurological: - - DTRs are 3-4 in the patellar reflex. No clonus. Psych/Mental Status: Normal Affect, Appropriate Vitals/I&O's: Vital Signs Temp Pulse Resp BP Pulse Ox 98.1 F 79 16 146/89 H 99 06/26/19 11:20 06/26/19 11:20 06/26/19 11:20 06/26/19 11:20 06/26/19 11:20 Oxygen Delivery Method Room Air Weight: 59.1 kg Body Mass Index (BMI) 21.0 Intake and Output for Last 24 Hours 06/24/19 06/25/19 06/26/19 23:59 23:59 23:59 Intake Total 1250 / 1850 5423.33 / 6023.33 3547.5 / 3547.5 Output Total 300 / 2500 7800 / 7800 1999 / 1999 Balance 950 / -650 -2376.67 / -1776.67 1547.5 / 1547.5 Laboratory Results 06/26/19 05:55: WBC 8.5, RBC 3.29 L, Hgb 9.8 L, Hct 30.1 L, MCV 91.5, MCH 29.8, MCHC 32.6, RDW Std Deviation 37.8, RDW Coeff of David 11.2 L, Plt Count 369, MPV 9.0, Immature Gran % (Auto) 1.100 H, Neut % (Auto) 68.1, Lymph % (Auto) 19.7, [place] % (Auto) 8.7, Eos % (Auto) 1.8, Baso % (Auto) 0.6, Absolute Neuts (auto) 5.8, Absolute Lymphs (auto) 1.68, Nucleated RBC % 0 06/26/19 05:55: Sodium 141, Potassium 3.5, Chloride 111 H, Carbon Dioxide 25.0, BUN 32 H, Creatinine 2.51 H, Estim Creat Clear Calc 21.13, Est GFR (MDRD) Af Amer 25 L, Est GFR (MDRD) Non-Af 21 L, BUN/Creatinine Ratio 12.7, Glucose 82, Calcium 12.5 H, Phosphorus 2.5, Albumin 2.5 L 06/26/19 05:55: Vit D 1,25-Dihydroxy Pending 06/26/19 05:55: Magnesium 2.0 Current Medications Acetaminophen (Tylenol) 650 mg PO Q6H PRN PRN PRN Reason: Pain Score 1-10/Temp > 100.7 F Last Admin: 06/26/19 09:42 Dose: 650 mg Documented by: Amlodipine Besylate (Norvasc) 10 mg PO DAILY [facility] Diphenhydramine HCl (Benadryl) 50 mg PO TID PRN PRN PRN Reason: MIGRAINE SYMPTOMS Last Admin: 06/25/19 22:04 Dose: 50 mg Documented by: Heparin Sodium (Porcine) (Heparin Na) 5,000 unit SC Q8 [facility] Last Admin: 06/26/19 14:19 Dose: Not Given Documented by: Sodium Chloride () 1,000 mls @ 150 mls/hr IV .Q6H40M [facility] Last Admin: 06/26/19 12:04 Dose: 150 mls/hr Documented by: Ondansetron HCl (Zofran) 4 mg IV Q8H PRN PRN PRN Reason: NAUSEA/VOMITING Promethazine HCl (Phenergan Tablet) 25 mg PO TID PRN PRN Reason: MIGRAINE SYMPTOMS Last Admin: 06/25/19 22:04 Dose: 25 mg Documented by: Sodium Chloride () 10 - 40 ml IV UD PRN PRN Reason: SALINE FLUSH Last Admin: 06/25/19 09:59 Dose: 10 ml Documented by: STROKE Vital Signs/Narrative: Vital Signs Temp Pulse Resp BP Pulse Ox 06/26/19 11:20 98.1 F 79 16 146/89 H 99 Medical Necessity - Tobacco Use Smoking Status: Never smoker Assessment/Plan All Active Problems (Last Reviewed 06/24/19 @ 14:[address] Balta Gayle, DO) AAA (abdominal aortic aneurysm) (Acute) Abdominal pain (Acute) 1. Hypercalcemia, unclear etiology, appears improved, corrected ca today is 13.7 Less likely malignancy - no mass or lymphadenopathy from CT scan, CA 125 pending Work-up for possible granulomatous disease such as sarcoidosis or TB is pending with ALEENA/PPD Patient is not on calcium pills. Her vitamin D levels were elevated at the previous admission, repeat is pending Pharmacist reviewed patient's home medications -he is on multiple supplements, no likely culprit She received pamidronate [id number] making 60 mg, Lasix on 2 different days, Will continue on IVF today at 150mls/hr Repeat Vitamin d levels pending Patient advised to discontinue all herbal supplements pending further evaluation 2. Migraine-like headache, resolved with Tylenol 3. Hypertension, controlled, continue on amlodipine 4. CKD stage 4, CR slightly worse, will continue on IVF 5. DVT PPx- Heparin SC Inpatient E&M: 80167 Subs Hosp L2
[2019-06-26 16:08] LABS: Cytoplasmic Ab (C-ANCA) <1:20 titer (Neg:<1:20); Immunoglobulin A 255 mg/dL (87-352); Immunoglobulin M 135 mg/dL (26-217)
[2019-06-26 17:40] LABS: Perinuclear Ab (P-ANCA) <1:20 titer (Neg:<1:20)
[2019-06-26 17:41] LABS: Angiotensin Convert Enzyme 31 U/L (14-82); Cancer Antigen 125 89.6 U/mL (0.0-38.1); Immunoglobulin G 1438 mg/dL (700-1600)
[2019-06-27] MEDS: Acetaminophen 325 MG Tablet 650 MG PO ×2 (00:34→07:41)
[2019-06-27] MEDS: 0.9% Normal Saline 1,000 ML 150 ML IV ×2 (00:35→07:39)
[2019-06-27 03:06] VITALS: PULSE 67
[2019-06-27 04:00] VITALS: BP 159/80; PULSE 65; RESP 18; TEMP 36.6; O2SAT 100
[2019-06-27 05:20] VITALS: BP 141/88; PULSE 72; RESP 18; TEMP 36.8; O2SAT 99
[2019-06-27 06:10] LABS: Absolute Lymphocyte Count 1.88 X10^3/uL (0.83-4.51); Absolute Neutrophil Count 5.1 X10^3/uL (2.0-7.7); Basophil# 0.05 X10^3/uL; Basophil% 0.6 % (0-1); Eosinophil# 0.15 X10^3/uL; Eosinophils% 1.9 % (0-5); Hematocrit 30.1 % (37-47); Hemoglobin 9.9 g/dL (12.0-15.0); Lymphocyte # 1.88 X10^3/ul (4.0); Lymphocyte % 23.6 % (19-41); Mean Corp Hgb Conc 32.9 g/dL (32-36); Mean Corpuscular Volume 91.2 fL (81-99); Mean Platelet Vol. 9.3 fl (6.2-12.0); Monocyte# 0.74 X10^3/uL; Monocyte% 9.3 % (0-10); NRBC Flagged by Analyzer 0 % (0-5); Neutrophil % 63.8 % (47-70); Platelet Count 366 K/mm3 (150-450); RBC Distribution Width CV 11.4 % (11.6-14.6); RBC Distribution Width SD 38.3 fl (35.1-43.9)
[2019-06-27 06:38] LABS: Albumin, Serum 2.5 g/dL (3.2-5.0); BUN 34 mg/dL (7-18); BUN/Creat Ratio 15.9 RATIO (10-20); Calcium,Total 11.8 mg/dL (8.5-10.1); Chloride 110 mmol/L (98-107); Creatinine, Serum 2.14 mg/dL (0.55-1.02); EST Glomerular Filtration Rate 25 mL/min (>60); Est Glom Filt Rate - Afr Amer 30 mL/min (>60); Estimated Creatinine Clearance 24.78 ml/min; Glucose 80 mg/dL (74-106); Phosphorus 2.8 mg/dL (2.5-4.9); Potassium 3.4 mmol/L (3.5-5.1); Sodium Level 139 mmol/L (136-145)
[2019-06-27 07:00] VITALS: PULSE 84
[2019-06-27 09:15] VITALS: BP 156/94; PULSE 85
[2019-06-27] MEDS: amLODIPine 10 MG Tablet PO (09:22)
--- NOTE | 2019-06-27 10:54 | PCM.DC ---
- Discharge Diagnoses Current Active Problems: Current Active and Chronic Problems (Last Reviewed 06/24/19 @ 14:[address] Balta Gayle DO) AAA (abdominal aortic aneurysm) (Acute) Acute on chronic renal failure (Chronic) You will use the following diet at home:: Cardiac Your food should be the consistency of: Regular Your liquids should be the consistency of: Regular/Thin Discharge Activity: Return to Normal Activity Additional Instructions: You will need a lab test (BMP) done in 1 week, talk to your family doctor or budget and policy analyst to arrange this. Discontinue all nonprescribed supplements. Allergies/Adverse Reactions: Allergies acetaminophen [From Tylenol] Adverse Reaction (Verified 06/24/19 11:40) Other rapid heart rate Medications to take at Discharge Amlodipine [Norvasc] 10 mg PO DAILY #30 tab 06/27/19 Clonidine HCl [Catapres] 0.1 mg PO DAILY PRN PRN #7 tab 06/27/19 The following prescriptions were given: Clonidine HCl [Catapres] 0.1 mg PO DAILY PRN PRN #7 tab PRN Reason: Blood Pressure Transmission Status: Pending to [id number] Amlodipine [Norvasc] 10 mg PO DAILY #30 tab Transmission Status: Pending to [id number] Primary Care Physician: MAE FATIMA [None] - Please follow up with your Primary Care Physician in: 1-2 weeks Test Results: Test results from this visit will be discussed in further detail at your follow-up appointment, if applicable. Please Follow Up With: Suze Gomez DO When: 2 weeks Please Follow Up With: Judy Poole NP-C When: 1 week Proposed Discharge Date: 06/27/19
--- NOTE | 2019-06-27 11:10 | CASEMGMT ---
Pt provided with list of local PCP's per Dr. Huffman request at this time. Pt has been up walking halls independently. Lexy TOWNSEND CM
--- NOTE | 2019-06-27 11:26 | PHA.DC.MC ---
Pharmacy Service has performed discharge medication reconciliation and counseling for this patient. The patient's discharge medication list was reviewed for discrepancies and discrepancies were resolved. The patient was counseled on the following discharge medications and changes in medications for homegoing were reviewed. The Reason for Use, instructions for use, and potential side effects were reviewed for all new medications. 1. AMLODIPINE 2. CLONIDINE The patient's questions regarding all of their medications were answered. The patient was able to verbally demonstrate an understanding of their discharge medications. Home Medications Amlodipine [Norvasc] 10 mg PO DAILY #30 tab 06/27/19 Clonidine HCl [Catapres] 0.1 mg PO DAILY PRN PRN #7 tab 06/27/19
--- NOTE | 2019-06-27 13:09 | PCM.PN.REN ---
Patient Problems: Active and Suspected Problems (Last Reviewed 06/24/19 @ 14:[address] Balta Gayle, DO) Elevated CA-125 (Acute) AAA (abdominal aortic aneurysm) (Acute) - Physical Exam Vitals/I&O's: Vital Signs Temp Pulse Resp BP Pulse Ox 98.3 F 85 18 156/94 H 99 06/27/19 05:20 06/27/19 09:15 06/27/19 05:20 06/27/19 09:15 06/27/19 05:20 Oxygen Delivery Method Room Air Weight: 59.1 kg Body Mass Index (BMI) 21.0 Intake and Output for Last 24 Hours 06/25/19 06/26/19 06/27/19 23:59 23:59 23:59 Intake Total 5423.33 / 6023.33 4682.5 / 5682.5 3102.5 / 3102.5 Output Total 7800 / 7800 3500 / 5300 4400 / 4400 Balance -2376.67 / -1776.67 1182.5 / 382.5 -1297.5 / -1297.5 General: Alert, Oriented x3 Cardiovascular: Regular rate Abdomen: Bowel Sounds Present, Soft, Non Tender, Non-Distended Skin: - - 4 inch lipomatous lump LLQ ant abdomen, mobile nontender Psych/Mental Status: Normal Affect, Appropriate, Alert and oriented to time, place, person, mood and affect Laboratory Results 06/24/19 12:20: Ionized Calcium 10.1 H 06/24/19 17:50: Angiotensin Convert Enz 31, CA 125 Antigen 89.6 H, IgG 1438, IgA 255, IgM 135, Serum Immunofixation Comment 06/24/19 17:50: c-ANCA Antibody <1:20, Atypical p-ANCA <1:20, p-ANCA Antibody <1:20 06/27/19 05:30: WBC 8.0, RBC 3.30 L, Hgb 9.9 L, Hct 30.1 L, MCV 91.2, MCH 30.0, MCHC 32.9, RDW Std Deviation 38.3, RDW Coeff of David 11.4 L, Plt Count 366, MPV 9.3, Immature Gran % (Auto) 0.800, Neut % (Auto) 63.8, Lymph % (Auto) 23.6, [place] % (Auto) 9.3, Eos % (Auto) 1.9, Baso % (Auto) 0.6, Absolute Neuts (auto) 5.1, Absolute Lymphs (auto) 1.88, Nucleated RBC % 0 06/27/19 05:30: Sodium 139, Potassium 3.4 L, Chloride 110 H, Carbon Dioxide 24.0, BUN 34 H, Creatinine 2.14 H, Estim Creat Clear Calc 24.78, Est GFR (MDRD) Af Amer 30 L, Est GFR (MDRD) Non-Af 25 L, BUN/Creatinine Ratio 15.9, Glucose 80, Calcium 11.8 H, Phosphorus 2.8, Albumin 2.5 L 06/27/19 09:00: Vitamin A Pending Current Medications Acetaminophen (Tylenol) 650 mg PO Q6H PRN PRN PRN Reason: Pain Score 1-10/Temp > 100.7 F Last Admin: 06/27/19 07:41 Dose: 650 mg Documented by: Amlodipine Besylate (Norvasc) 10 mg PO DAILY [facility] Last Admin: 06/27/19 09:22 Dose: 10 mg Documented by: Diphenhydramine HCl (Benadryl) 50 mg PO TID PRN PRN PRN Reason: MIGRAINE SYMPTOMS Last Admin: 06/25/19 22:04 Dose: 50 mg Documented by: Heparin Sodium (Porcine) (Heparin Na) 5,000 unit SC Q8 [facility] Last Admin: 06/27/19 04:48 Dose: Not Given Documented by: Sodium Chloride () 1,000 mls @ 150 mls/hr IV .Q6H40M [facility] Last Admin: 06/27/19 07:39 Dose: 150 mls/hr Documented by: Ondansetron HCl (Zofran) 4 mg IV Q8H PRN PRN PRN Reason: NAUSEA/VOMITING Promethazine HCl (Phenergan Tablet) 25 mg PO TID PRN PRN Reason: MIGRAINE SYMPTOMS Last Admin: 06/25/19 22:04 Dose: 25 mg Documented by: Sodium Chloride () 10 - 40 ml IV UD PRN PRN Reason: SALINE FLUSH Last Admin: 06/25/19 09:59 Dose: 10 ml Documented by: Medical Necessity - Tobacco Use Smoking Status: Never smoker Assessment/Plan All Active Problems (Last Reviewed 06/24/19 @ 14:[address] Balta Gayle, DO) Elevated CA-125 (Acute) AAA (abdominal aortic aneurysm) (Acute) Abdominal pain (Acute) 1. Chronic, persistent hypercalcemia with calcium level 16 improved to 11.8 today with iv fluids and aredia. Will need to check calcium level weekly with prn pamidronate. Ca 125 elevated at 89. Await NALDO. ANCA, ALEENA level unremarkable. Repeat vit D 1.25 pending. Spoke with oncology who rec total body bone scan. Refer to [facility] to evaluate pelvic mass. Will hold on steroid therapy until have more definitive diagnosis. 2. CKD stage IV. Creatinine 2.1 today. Hold Losartan and lasix. Baseline creatinine 1.8 during last hospitalization 3. Hypertension increase amlodipine dose to 10mg daily. Clonidine prn SBP >180 on discharge 4. Constipation. No fleets, no mag products, no OTC products. Ok to use docusate, dulcolax, miralax, linzess. follow up with me on 07/01 at 10:30am [facility] hospitalist, Dr Merritt
[2019-06-27 13:20] VITALS: BP 143/82; PULSE 84; RESP 16; TEMP 36.7; O2SAT 99
--- NOTE | 2019-06-27 13:32 | ONC.PN.INPT ---
- Problem List (1) Hypercalcemia Status: Chronic (2) Elevated CA-125 Status: Acute Subjective Date of Service:: 06/27/19 Hypercalcemia, elevated CA125 Upon entering the room patient is sitting up at bedside chair she denies any outstanding complaints since she was evaluated by me on 06/25/2019. I reviewed with her Ca1 25 results and explained utility of tumor markers. Past Medical History: Chronic Problems (Last Reviewed 06/27/19 @ 14:07 by Krystal Cannon) Hypertension (Chronic) Dermoid cyst of ovary (Chronic) Acute on chronic renal failure (Chronic) CKD (chronic kidney disease) stage 4, GFR 15-29 ml/min (Chronic) Nephrolithiasis (Chronic) Hypercalcemia (Chronic) Past Medical History - Most Recent Inpatient Visit Past Medical History Start: 06/24/19 14:37 Text: Status: Complete Freq: ONCE Protocol: Document 06/24/19 14:37 MAREK (Rec: 06/24/19 14:49 MAREK [id number]) BMI Required to complete PMH What is Patient's BMI 59.1 Past Medical History Unable History Recalled No Query Text:Pt Unable/Family Not Present Neurologic Medical History Hx Stroke/TIA No Hx Dementia/Alzheimer's No Hx Parkinson's Disease No Hx Seizures No Hx Multiple Sclerosis No Hx Migraines Yes Cardiac Medical History VTE Present on Admission No Hx of Deep Vein Thrombosis/VTE/PE No Hx Hypertension Yes Hx Chest Pain/Angina No Hx Heart Attack No Hx Cardiac Surgery/Stents/Etc. No Hx Heart Failure No Hx Pacemaker/AICD No Hx Irregular Heartbeat and/or Afib No Hx Anticoagulant Therapy No Query Text:(Coumadin, Aspirin, Plavix, Xarelto, etc.) Hx Pain in Legs when Walking/Leg Cramps No Respiratory Medical History Hx COPD No Hx Emphysema No Hx Smoking No Smoking Status Never smoker Hx Tobacco Use in last 12 months No Hx Sleep Apnea No Do you snore loudly (louder than talking No or can be heard through closed doors)? Do you often feel tired/ fatigued/ No sleepy during daytime? Has anyone observed you stop breathing No during sleep? STOP Results Negative GI Medical History Hx Ulcer No Hx Hepatitis No Hx Cirrhosis No Hx GI Bleed No Hx Unplanned Weight Loss No Genitourinary Medical History Indwelling Catheter in Place on Arrival/ No Admission Hx Renal Disease Yes Hx Dialysis No Musculoskeletal History Hx Arthritis No Hx Rheumatoid Arthritis No Endocrine Medical History Hx Diabetes No Hx Thyroid Disease No Hematologic Medical History Hx of Blood Transfusion No Hx of Transfusion in last 3 Months No Ever experience any problems with No transfusion(s)? Hx of Preganancy in last 3 Months No Nurse Filling Out Transfusion & JLENDON Questions: Date: 06/24/19 Time: 14:48 Psycho/Social Medical History Hx Depression No Hx Anxiety No Hx Behavior Disorder No Hx Alcohol Use No Hx Substance Use No Other Medical History Hx Blood Disorders No Hx Anemia No Hx Cancer No Hx Drug Resistant Organism No Wound/Pressure Injury Present on Arrival No /Admission Query Text:If yes, chart assessment in Shift/Clinical Findings Central Line/PICC/VAD Present on Arrival No /Admission Antibiotics within last 7 days? No Methicillin Resistant Staphylococcus aureus Screening Active MRSA No Risk for Readmission Number of Risk Factors 1 At Risk for Readmission Patient is Not at Risk Patient is eligible for Call Back N Past Medical History (Last Reviewed 06/24/19 @ 14:[address] Balta Gayle, DO) Hypercalcemia (Acute) HTN (hypertension) (Chronic) Maternal Family History: - - no malignancy Paternal Family History: Hypertension - Social History Lives: Spouse/ Significant Other Smoking Status: Never smoker Review of Systems Constitutional:: Denies: Fever, Sweats, Weight loss, Appetite change, Chills Cardiovascular:: Denies: Chest pain, Palpitations, Dyspnea on exertion, Orthopnea, PND, Shortness of breath Respiratory: Denies: Cough, Hemoptysis, Shortness of Breath, Wheezing Gastrointestinal:: Denies: Abdominal pain, Nausea, Vomiting, Diarrhea, Constipation, Hematochezia Genitourinary: Denies: Dysuria, Hematuria, 15, Flank pain Musculoskeletal:: Denies: Back pain, Myalgia, Arthralgia Skin: Denies: Rash, Skin Changes, Wounds Neurological:: Denies: Headache, Dizziness, Visual changes, Tinnitus, Hearing loss Psychiatric: Denies: Anxiety, Depression, Homicidal Ideations, Suicidal Ideations Vital Signs Height 5 ft 6 in Weight: 130 lb 4.691 oz Weight in Pounds 130.3 lbs Pulse Ox 99 Temperature 98.3 F Pulse Rate 85 Respiratory Rate 18 Blood Pressure [BP] 156/94 Blood Pressure 141/88 Blood Pressure Position [BP] Sitting Blood Pressure Position Semi-Fowlers - Physical Exam General: Alert, Oriented x3, No apparent distress HEENT: Atraumatic, Normocephalic, - - Wears glasses Oropharynx:: Negative for: Dry mucosa, Ulcerated lesions Neck:: Supple, Trachea midline. Negative for: JVD, bilateral Cardiac:: Regular rate, Regular rhythm, Normal S1, Normal S2. Negative for: Murmur Lungs: Clear to auscultation, Excusion symmetrical. Negative for: Rhonchi, Wheezes Abdomen:: Bowel sounds x 4, Soft, Non-tender, Non-distended. Negative for: Hepatosplenomegaly Extremities:: Negative for: Cyanosis, Edema Neurological: Neuro grossly intact Skin:: Negative for: Lesions, Rash, Petechiae, Ecchymosis Psychiatric:: Appropriate affect, Euthymic Lymphatics:: Negative for: Cervical lymphadenopathy, Supraclavicular lymphadenopathy, Axillary lymphadenopathy Laboratory Data: Laboratory Tests 06/27/19 06/27/19 06/24/19 Range/Units 05:30 05:30 17:50 WBC 8.0 (4.4-11.0) K/mm3 RBC 3.30 L (4.2-5.4) M/mm3 Hgb 9.9 L (12.0-15.0) g/dL Hct 30.1 L (37-47) % MCV 91.2 (81-99) fL MCH 30.0 (27.0-32.0) pg MCHC 32.9 (32-36) g/dL RDW Std Deviation 38.3 (35.1-43.9) fl RDW Coeff of David 11.4 L (11.6-14.6) % Plt Count 366 (150-450) K/mm3 MPV 9.3 (6.2-12.0) fl Immature Gran % (Auto) 0.800 (0.0-0.9) % Neut % (Auto) 63.8 (47-70) % Lymph % (Auto) 23.6 (19-41) % [place] % (Auto) 9.3 (0-10) % Eos % (Auto) 1.9 (0-5) % Baso % (Auto) 0.6 (0-1) % Absolute Neuts (auto) 5.1 (2.0-7.7) X10^3/uL Absolute Lymphs (auto) 1.88 (0.83-4.51) X10^3/uL Nucleated RBC % 0 (0-5) % Sodium 139 (136-145) mmol/L Potassium 3.4 L (3.5-5.1) mmol/L Chloride 110 H (98-107) mmol/L Carbon Dioxide 24.0 (21.0-32.0) mmol/L BUN 34 H (7-18) mg/dL Creatinine 2.14 H (0.55-1.02) mg/dL Estim Creat Clear Calc 24.78 ml/min Est GFR (MDRD) Af Amer 30 L (>60) mL/min Est GFR (MDRD) Non-Af 25 L (>60) mL/min BUN/Creatinine Ratio 15.9 (10-20) RATIO Glucose 80 (74-106) mg/dL Calcium 11.8 H (8.5-10.1) mg/dL Ionized Calcium (4.5-5.6) mg/dL Phosphorus 2.8 (2.5-4.9) mg/dL Albumin 2.5 L (3.2-5.0) g/dL Angiotensin Convert Enz (14-82) U/L CA 125 Antigen (0.0-38.1) U/mL IgG (700-1600) mg/dL IgA (87-352) mg/dL IgM (26-217) mg/dL Serum Immunofixation (.) c-ANCA Antibody <1:20 (Neg:<1:20) titer Atypical p-ANCA <1:20 (Neg:<1:20) titer p-ANCA Antibody <1:20 (Neg:<1:20) titer 06/24/19 06/24/19 Range/Units 17:50 12:20 WBC (4.4-11.0) K/mm3 RBC (4.2-5.4) M/mm3 Hgb (12.0-15.0) g/dL Hct (37-47) % MCV (81-99) fL MCH (27.0-32.0) pg MCHC (32-36) g/dL RDW Std Deviation (35.1-43.9) fl RDW Coeff of David (11.6-14.6) % Plt Count (150-450) K/mm3 MPV (6.2-12.0) fl Immature Gran % (Auto) (0.0-0.9) % Neut % (Auto) (47-70) % Lymph % (Auto) (19-41) % [place] % (Auto) (0-10) % Eos % (Auto) (0-5) % Baso % (Auto) (0-1) % Absolute Neuts (auto) (2.0-7.7) X10^3/uL Absolute Lymphs (auto) (0.83-4.51) X10^3/uL Nucleated RBC % (0-5) % Sodium (136-145) mmol/L Potassium (3.5-5.1) mmol/L Chloride (98-107) mmol/L Carbon Dioxide (21.0-32.0) mmol/L BUN (7-18) mg/dL Creatinine (0.55-1.02) mg/dL Estim Creat Clear Calc ml/min Est GFR (MDRD) Af Amer (>60) mL/min Est GFR (MDRD) Non-Af (>60) mL/min BUN/Creatinine Ratio (10-20) RATIO Glucose (74-106) mg/dL Calcium (8.5-10.1) mg/dL Ionized Calcium 10.1 H (4.5-5.6) mg/dL Phosphorus (2.5-4.9) mg/dL Albumin (3.2-5.0) g/dL Angiotensin Convert Enz 31 (14-82) U/L CA 125 Antigen 89.6 H (0.0-38.1) U/mL IgG 1438 (700-1600) mg/dL IgA 255 (87-352) mg/dL IgM 135 (26-217) mg/dL Serum Immunofixation Comment (.) c-ANCA Antibody (Neg:<1:20) titer Atypical p-ANCA (Neg:<1:20) titer p-ANCA Antibody (Neg:<1:20) titer Diagnostic Data: Diagnostic Data Chest CT 06/25/19 08:37 IMPRESSION: Mild degree of the increased linear markings at the lung bases suggestive of scarring. Mild dilatation of the esophagus with air and fluid. 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 Electronically Signed: Kole Mann, at 10:11 EDT , Service support , Assessment and Plan Ms. Georgina Mina is a 64-year-old woman with past medical history significant for chronic kidney disease who is experiencing persistent hypercalcemia. 1. Elevated Ca 125?as evidenced by value of 89.6. CT of the abdomen and pelvis obtained on 06/13/2019 demonstrated a 7.1 cm x 7.5 cm mixed soft tissue density in the left adnexa?thought to be a dermoid. However in light of elevated tumor marker recommend referral to [facility] oncology. Dr. Reyes/Dr. Vazquez in [place] will be the most feasible for her due to proximity to home and limited transportation. 2. Hypercalcemia-serum calcium today 11 point 2:08 doses of 30 mg pamidronate. Immunoglobulin levels are within normal limits. In light of elevated Ca125 recommend nuclear medicine bone scan to assess for skeletal involvement of ?Malignancy that may be causing hypercalcemia. Patient to follow-up with [facility] upon discharge. Case discussed with Dr. Merritt who was in agreement with aforementioned plan. Judy Poole, MSN, PUBLIC RELATIONS MANAGER, AOCNP Medications: Prescriptions This Visit Medication Instructions Recorded Amlodipine [Norvasc] 10 mg PO DAILY #30 tab 06/27/19 Clonidine HCl [Catapres] 0.1 mg PO DAILY PRN PRN #7 tab 06/27/19 Medications Added to Medication List This Visit Category Date Time Status Amlodipine [Norvasc] Med 06/27/19 10:00 Active 10 mg PO DAILY Primary Care Provider: Dawna Peres PA-C Referring Provider:
--- NOTE | 2019-06-27 13:33 | DS.PCM_ITS ---
<Howard Stallings - Last Filed: 06/27/19 14:57> Discharge Date and Diagnosis Date of Admission: 06/24/19 Date of Discharge: 06/27/19 - Primary Discharge Diagnosis Active and Suspected Problems (Last Reviewed 06/24/19 @ 14:[address] Balta Gayle DO) Hypercalcemia unclear etiology COLLINS on CKD 4 Hypertension - Secondary Discharge Diagnosis Chronic Problems (Last Reviewed 06/24/19 @ 14:[address] Balta Gayle DO) Hypertension (Chronic) Dermoid cyst of ovary (Chronic) Acute on chronic renal failure (Chronic) CKD (chronic kidney disease) stage 4, GFR 15-29 ml/min (Chronic) Nephrolithiasis (Chronic) Hypercalcemia (Chronic) Hospital Course and Treatment Imaging Results: CT/Chest without Contrast IMPRESSION: Mild degree of the increased linear markings at the lung bases suggestive of scarring. Mild dilatation of the esophagus with air and fluid. 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 Consults: Jason- nephrology Virgilio - oncology Operations: None Procedures: None Summary of Care Provided: Hospital Course: The patient is a 64 year old F past medical history of hypercalcemia, hypertension, dermoid cyst, CKD stage IV, who presented to the emergency room with abnormal labs. She was sent in for elevated calcium once again, calcium was at 16.3. She was given IV Lasix in the ER. She was admitted to the PCU on telemetry. Nephrology and oncology were consulted. She had been worked up in the past with no etiology found. She had had a vitamin D level that was elevated in the past. Repeat is pending. PTH was negative in the past. IgG, IgA, IgM, serum immunofixation, ANCA levels were negative. TSH was normal. ALEENA level was normal. After admission she was started on pamidronate and IV fluids. She appeared to have acute kidney injury her baseline is 1.8, and her creatinine increased to 2.51 during her stay before improving to 2.14 she had gradual improvement in her calcium down to 11.8, and her acute kidney injury resolved. Vitamin D repeat is pending, vitamin A is pending. A Ca125 level was checked and was elevated at 89.6. A previous pelvic ultrasound was done in June which showed a 7.6 cm echogenic mass of the left ovary, adnexa consistent with dermoid. Normal appearance of the ovary and uterus. Her ALEENA inhibitor was stopped and her Norvasc was increased. She was also placed on as needed clonidine if her blood pressure increases to more than 180 mmHg systolic. She will need close follow-up with nephrology, oncology, and her PCP in 1 to 2 weeks. She will likely need a bone scan which will need to be arranged as an outpatient. She will need a repeat BMP within the next week. She was discharged home in stable condition. This patient was seen by Howard Stallings PA-C under the supervision of Doctor Paola. [] - Physical Exam Vitals/I&O's: Vital Signs Temp Pulse Resp BP Pulse Ox 98.3 F 85 18 156/94 H 99 06/27/19 05:20 06/27/19 09:15 06/27/19 05:20 06/27/19 09:15 06/27/19 05:20 Oxygen Delivery Method Room Air Weight: 130 lb 4.691 oz Body Mass Index (BMI) 21.0 Intake and Output for Last 24 Hours 06/25/19 06/26/19 06/27/19 23:59 23:59 23:59 Intake Total 5423.33 / 6023.33 4682.5 / 5682.5 3102.5 / 3102.5 Output Total 7800 / 7800 3500 / 5300 4400 / 4400 Balance -2376.67 / -1776.67 1182.5 / 382.5 -1297.5 / -1297.5 General: Alert, Oriented x3, Cooperative HEENT: Atraumatic, PERRLA, EOMI, Normocephalic Neck: Supple, No JVD, Negative Carotid Bruits Lungs: Clear to auscultation, Normal air movement Cardiovascular: Regular rate, No murmurs Abdomen: Bowel Sounds Present, Soft, Non Tender Extremities: No edema, Capillary Refill Less than 3 Seconds Skin: No rashes, No breakdown Musculoskeletal: No Tenderness to Palpation of Joints or Extremities Neurological: Cranial nerves II-XII grossly intact Psych/Mental Status: Normal Affect, Appropriate, Alert and oriented to time, place, person, mood and affect Laboratory Results 06/24/19 12:20: Ionized Calcium 10.1 H 06/24/19 17:50: Angiotensin Convert Enz 31, CA 125 Antigen 89.6 H, IgG 1438, IgA 255, IgM 135, Serum Immunofixation Comment 06/24/19 17:50: c-ANCA Antibody <1:20, Atypical p-ANCA <1:20, p-ANCA Antibody <1:20 06/27/19 05:30: WBC 8.0, RBC 3.30 L, Hgb 9.9 L, Hct 30.1 L, MCV 91.2, MCH 30.0, MCHC 32.9, RDW Std Deviation 38.3, RDW Coeff of David 11.4 L, Plt Count 366, MPV 9.3, Immature Gran % (Auto) 0.800, Neut % (Auto) 63.8, Lymph % (Auto) 23.6, Forrest % (Auto) 9.3, Eos % (Auto) 1.9, Baso % (Auto) 0.6, Absolute Neuts (auto) 5.1, Absolute Lymphs (auto) 1.88, Nucleated RBC % 0 06/27/19 05:30: Sodium 139, Potassium 3.4 L, Chloride 110 H, Carbon Dioxide 24.0, BUN 34 H, Creatinine 2.14 H, Estim Creat Clear Calc 24.78, Est GFR (MDRD) Af Amer 30 L, Est GFR (MDRD) Non-Af 25 L, BUN/Creatinine Ratio 15.9, Glucose 80, Calcium 11.8 H, Phosphorus 2.8, Albumin 2.5 L 06/27/19 09:00: Vitamin A Pending Current Medications Acetaminophen (Tylenol) 650 mg PO Q6H PRN PRN PRN Reason: Pain Score 1-10/Temp > 100.7 F Last Admin: 06/27/19 07:41 Dose: 650 mg Documented by: Amlodipine Besylate (Norvasc) 10 mg PO DAILY [facility] Last Admin: 06/27/19 09:22 Dose: 10 mg Documented by: Diphenhydramine HCl (Benadryl) 50 mg PO TID PRN PRN PRN Reason: MIGRAINE SYMPTOMS Last Admin: 06/25/19 22:04 Dose: 50 mg Documented by: Heparin Sodium (Porcine) (Heparin Na) 5,000 unit SC Q8 [facility] Last Admin: 06/27/19 04:48 Dose: Not Given Documented by: Sodium Chloride () 1,000 mls @ 150 mls/hr IV .Q6H40M ELOY Last Admin: 06/27/19 07:39 Dose: 150 mls/hr Documented by: Ondansetron HCl (Zofran) 4 mg IV Q8H PRN PRN PRN Reason: NAUSEA/VOMITING Promethazine HCl (Phenergan Tablet) 25 mg PO TID PRN PRN Reason: MIGRAINE SYMPTOMS Last Admin: 06/25/19 22:04 Dose: 25 mg Documented by: Sodium Chloride () 10 - 40 ml IV UD PRN PRN Reason: SALINE FLUSH Last Admin: 06/25/19 09:59 Dose: 10 ml Documented by: Discharge Diet: Low fat/ Low Cholesterol, 2000 mg Sodium Diet Discharge Activity: Return to Normal Activity Home Medications: Medications to take at Discharge Amlodipine [Norvasc] 10 mg PO DAILY #30 tab 06/27/19 Clonidine HCl [Catapres] 0.1 mg PO DAILY PRN PRN #7 tab 06/27/19 Following Prescrptions Were Given to Patient: Clonidine HCl [Catapres] 0.1 mg PO DAILY PRN PRN #7 tab PRN Reason: Blood Pressure Transmission Status: Received by [id number] Amlodipine [Norvasc] 10 mg PO DAILY #30 tab Transmission Status: Received by [id number] Other Amb Orders: Bone Scan Whole Body [NM] Time Frame: 0 Days, Facility: [facility], Location: [facility] Renal Profile Time Frame: 07/01/19, Facility: [facility], Location: Laboratory Primary Care Physician: MAE FATIMA [None] - Please follow up with your Primary Care Physician in: 1-2 weeks Please Follow Up With: Suze Gomez DO When: 1-2 weeks Please Follow Up With: Judy Poole NP-C When: 1 week Disposition: Home Minutes spent on discharge:: 35 Patient Condition:: Stable Medical Necessity - Tobacco Use Smoking Status: Never smoker Meaningful Use Info Meaningful Use Diagnoses (Choose all that apply): None applicable <Paintsil,Spruce - Last Filed: 06/28/19 07:37> Discharge Date and Diagnosis - Secondary Discharge Diagnosis Chronic Problems (Last Reviewed 06/27/19 @ 14:07 by Krystal Cannon) Hypertension (Chronic) Dermoid cyst of ovary (Chronic) Acute on chronic renal failure (Chronic) CKD (chronic kidney disease) stage 4, GFR 15-29 ml/min (Chronic) Nephrolithiasis (Chronic) Hypercalcemia (Chronic) Hospital Course and Treatment Summary of Care Provided: This patient was seen in conjunction with KATEY Ruby. I have independently interviewed and examined the patient and reviewed pertinent historical, laboratory, and other data. Please refer to KATEY Ruby note for his katey dale's presentation, findings, and recommendations. I have reviewed and his note and concur with his documentation 64-year-old female with past medical history of hypertension, stage IV CKD, who was recently admitted on 06/13/19 with elevated calcium levels. Patient was readmitted again after blood work done in her nephrology office showed elevated calcium at 16.3. There was difficulty trying to reach the patient as she is [place] and has no phone. She eventually was admitted to the ED, received IV fluids, IV Lasix. In the last admission, patient's work-up showed elevated vitamin 1, 25 dihydroxy vitamin D levels. PTH was normal. IgG, IgA, IgM as well as ANCA were all negative. TSH was normal. ALEENA level was normal. Patient received IV pamidronate 30 mg x 2 and she was continuing IV fluids. Her calcium steadily decreased. Repeat vitamin D D as well as vitamin A was pending. Oncology was consulted in this patient for possible lymphoma. Ca1 25 done was elevated at 89.6. With the CEA 125 elevated, patient was referred to [facility] for previous pelvic ultrasound that showed 7.6 cm echogenic mass of the left ovary. Her losartan was held during this admission and continued to be held on discharge. Follow-up with Dr. Gomez in 1 week. Patient chose to establish care with Dr. IBARRA as her primary care doctor. On the day of discharge, and was seen and examined. Denied any new complaints Physical Exam: Gen:Comfortable, not pale, not jaundiced CVS:HS I +II, regular, no murmurs RESP: CTA GI: BS present and normal, soft, nontender, no palpable organs EXT:No edema - Physical Exam Vitals/I&O's: Vital Signs Temp Pulse Resp BP Pulse Ox 98.1 F 84 16 143/82 H 99 06/27/19 13:20 06/27/19 13:20 06/27/19 13:20 06/27/19 13:20 06/27/19 13:20 Oxygen Delivery Method Room Air Weight: 59.1 kg Body Mass Index (BMI) 21.0 Intake and Output for Last 24 Hours 06/25/19 06/26/19 06/27/19 23:59 23:59 23:59 Intake Total 5423.33 / 6023.33 4682.5 / 5682.5 4102.5 / 4102.5 Output Total 7800 / 7800 3500 / 5300 4400 / 4400 Balance -2376.67 / -1776.67 1182.5 / 382.5 -297.5 / -297.5 Laboratory Results 06/24/19 12:20: Ionized Calcium 10.1 H 06/24/19 15:44: Urine Immunofixation Comment 06/24/19 17:50: Angiotensin Convert Enz 31, CA 125 Antigen 89.6 H, IgG 1438, IgA 255, IgM 135, Serum Immunofixation Comment 06/24/19 17:50: c-ANCA Antibody <1:20, Atypical p-ANCA <1:20, p-ANCA Antibody <1:20 06/26/19 05:55: Vit D 1,25-Dihydroxy 65.3 06/27/19 05:30: WBC 8.0, RBC 3.30 L, Hgb 9.9 L, Hct 30.1 L, MCV 91.2, MCH 30.0, MCHC 32.9, RDW Std Deviation 38.3, RDW Coeff of David 11.4 L, Plt Count 366, MPV 9.3, Immature Gran % (Auto) 0.800, Neut % (Auto) 63.8, Lymph % (Auto) 23.6, Forrest % (Auto) 9.3, Eos % (Auto) 1.9, Baso % (Auto) 0.6, Absolute Neuts (auto) 5.1, Absolute Lymphs (auto) 1.88, Nucleated RBC % 0 06/27/19 05:30: Sodium 139, Potassium 3.4 L, Chloride 110 H, Carbon Dioxide 24.0, BUN 34 H, Creatinine 2.14 H, Estim Creat Clear Calc 24.78, Est GFR (MDRD) Af Amer 30 L, Est GFR (MDRD) Non-Af 25 L, BUN/Creatinine Ratio 15.9, Glucose 80, Calcium 11.8 H, Phosphorus 2.8, Albumin 2.5 L 06/27/19 09:00: Vitamin A Pending Inpatient E&M: [id number] Disch Hosp
[2019-06-27 16:41] LABS: Vitamin D 1,25-Dihydroxy 65.3 pg/mL (19.9-79.3)
--- NOTE | 2019-06-27 16:45 | NURSING ---
[facility]ighbors phone number to contact pt : Kevin Jones
== END 2019-06-27 16:40 | disposition home or self-care (01) | DRG 641 ==
LOC: ED 13:35 → PCU 15:09
PROVIDERS: Internal Medicine Nephrology; Nurse Practitioner Family; Emergency Provider Emergency Medicine; PCP Physician Assistant Medical; Visit Provider Internal Medicine
DX: E83.52 Hypercalcemia (principal); N18.4 Chronic kidney disease, stage 4 (severe); N17.9 Acute kidney failure, unspecified; G43.909 Migraine, unspecified, not intractable, without status migrainosus; I71.4 Abdominal aortic aneurysm, without rupture; R97.1 Elevated cancer antigen 125 [CA 125]; I12.9 Hypertensive chronic kidney disease with stage 1 through stage 4 chronic kidney disease, or unspecified chronic kidney disease; D27.1 Benign neoplasm of left ovary; Z87.442 Personal history of urinary calculi
CPT/HCPCS: 36415; 70490; 71250; 80048; 80069; 82164; 82330; 82652; 82784; 83615; 83735; 84443; 84590; 85025; 86256; 86304; 86334; 86335; 93005; 99283; J2430; J7030; J7050; A4216; J1940

== ENCOUNTER → 2019-07-02 10:06 | Outpatient (CLI) | payer OTHER, SELFPAY ==
[2019-06-24 14:37] VITALS: BMI 21.0
--- NOTE | 2019-07-02 10:08 | NM_ITS ---
CLINICAL: 64-year-old female with suspected skeletal metastatic disease. WHOLE BODY 99m Tc MDP RADIONUCLIDE BONE SCINTIGRAPHY COMPARISON: CT of the chest and neck reports 06/25/2019, CT of the abdomen-pelvis report 06/13/2019 FINDINGS: Following the intravenous administration of 24.5 mCi of 99m Tc MDP, whole body bone images reveal: 1. Increased radiopharmaceutical concentration appears defined in the posterior midline sacrum, bilateral elbow articulations, the right knee, right wrist. 2. The remaining skeletal structures are scintigraphically unremarkable with bilateral renal images and urinary bladder activity identified. The left kidney is markedly hypotrophic. Prominent tracer concentration is noted in the midline calvarium contiguous to the sagittal suture most consistent with a normal variant. NM/Bone Scan Whole Body IMPRESSION: 1. The increase in radiopharmaceutical concentration observed in the right knee, bilateral elbows, right wrist, sacrum is most consistent with degenerative arthritis. 2. There is no definitive typical scintigraphic evidence of skeletal metastatic disease on the current examination. Electronically Signed: Magdaleno Lutz DO at 22:55 EDT Tel , Service support ,
== END ==
PROVIDERS: PCP Physician Assistant Medical; Referring Provider Nurse Practitioner Family; Visit Provider Nurse Practitioner Family
DX: E83.52 Hypercalcemia (principal); R97.1 Elevated cancer antigen 125 [CA 125]
CPT/HCPCS: 78306

== ENCOUNTER 2023-10-19 10:05 | Outpatient (CLI) | payer OTHER, SELFPAY ==
[2023-10-19 10:15] VITALS: BP 117/61; PULSE 67; RESP 16; TEMP 35.9; O2SAT 100; BMI 23.0
[2023-10-19 10:58] VITALS: BP 112/54; PULSE 63; RESP 16; TEMP 36.1
[2023-10-19 12:01] VITALS: BP 116/57; PULSE 68; RESP 16; TEMP 36.5; O2SAT 100
[2023-10-19 12:34] VITALS: BP 114/56; PULSE 70; RESP 16; TEMP 36.6; O2SAT 100
[2023-10-19 13:03] VITALS: BP 115/56; PULSE 70; RESP 16; TEMP 36.6; O2SAT 99
[2023-10-19 14:09] VITALS: BP 125/61; PULSE 72; RESP 16; TEMP 36.7; O2SAT 100
== END 2023-10-19 23:59 | disposition home or self-care (01) ==
LOC: MEDOUTP 10:05
PROVIDERS: PCP Internal Medicine; Referring Provider Internal Medicine Nephrology; Visit Provider Internal Medicine Nephrology
DX: D64.9 Anemia, unspecified (principal)
CPT/HCPCS: 36415; 36430; 86850; 86900; 86901; 86920; 86922; J7040; P9016; A4216

== ENCOUNTER 2023-10-26 10:12 | Day surgery (SDC) | payer OTHER, SELFPAY ==
[2023-10-26 10:34] LABS: Hematocrit 29.8 % (37-47); Hemoglobin 9.7 g/dL (12.0-15.0); Mean Corp Hgb Conc 32.6 g/dL (32-36); Mean Corpuscular Hgb 29.8 pg (27.0-32.0); Mean Corpuscular Volume 91.4 fL (81-99); Mean Platelet Vol. 8.6 fl (6.2-12.0); Platelet Count 320 K/mm3 (150-450); RBC Distribution Width CV 12.5 % (11.6-14.6); RBC Distribution Width SD 41.8 fl (35.1-43.9); Red Blood Count 3.26 M/mm3 (4.2-5.4); White Blood Count 13.4 K/mm3 (4.4-11.0)
[2023-10-26 11:04] VITALS: BMI 22.5
--- NOTE | 2023-10-26 14:25 | HP.PCM_ITS ---
HPI - General HPI Narrative ARY ZARATE, is a 68 F who presents with CKD in need of HD in near future. No prior dialysis, no prior IJ catheters. [facility] Medical History Hypercalcemia HTN (hypertension) Home Medications ?Medication ?Instructions ?Recorded ?Last Taken ?Type omega-3 fatty acids 1,000 mg 1,000 mg PO DAILY 10/28/19 Unknown History capsule pramipexole 0.25 mg tablet See Rx Instructions .Route 06/17/20 Unknown Rx .COMPLEX #30 tabs trazodone 50 mg tablet 50 mg PO QHS PRN insomnia #30 tabs 07/02/20 Unknown Rx amlodipine 10 mg tablet 10 mg PO DAILY #90 tabs 07/30/20 Unknown Rx carvedilol 12.5 mg tablet 12.5 mg PO BID 10/19/23 Unknown History multivitamin (Daily Multi-Vitamin 1 tab PO DAILY 10/19/23 Unknown History tablet) Allergy/AdvReac Type Severity Reaction Status Date / Time No Known Allergies Allergy Verified 10/19/23 10:20 Family History Grandmother Cancer Mother Heart disease Father Hypertension Sister Kidney calculi Surgical History History of appendectomy Status post surgical removal of both fallopian tubes History of removal of both ovaries Social History Smoking Status: Never smoker alcohol intake: never substance use type: does not use ROS Constitutional Constitutional: Denies chills, fever(s), frequent falls, lethargy or weakness Eyes Eyes: Denies blind spots, change in vision or loss of vision ENT HEENT: Denies bleeding gums, hoarseness or sore throat Cardiovascular Cardiovascular: Denies abdominal pain, bluish discoloration of hand/feet, chest pain with activity, claudication, cold extremities, cyanosis, dyspnea on exertion, erythema on extremities, irregular heart rhythm, leg edema, leg ulcers, numbness in extremities or weakness in extremities Respiratory/Chest Respiratory/Chest: Denies cough, excessive phlegm production, shortness of breath at rest, shortness of breath with exertion or wheezing Gastrointestinal Gastrointestinal: Denies anorexia, change in stool character, constipation, diarrhea, melena or rectal bleeding Genitourinary Genitourinary: Denies dysuria or hematuria Musculoskeletal Musculoskeletal: Denies abnormal gait Integumentary Integumentary: Reports other Details: ; Denies erythema, non-healing lesions or wounds Neurologic Neurologic: Denies abnormal speech, focal weakness, headache(s), loss of vision, numbness, paresthesias or sensory deficit Hematologic/Lymphatic Hematologic/Lymphatic: Denies easy bleeding, easy bruising or lymphadenopathy Vital Signs Vital Signs Vital Signs: Weight Weight: 129 lb 6 oz Body Mass Index (BMI) 22.5 Physical Exam Const alert, oriented x3, no apparent distress and healthy appearing General Appearance: cooperative; Negative for combative or lethargic Orientation / Consciousness: awake Exam Limitations: no limitations HEENT Head and Scalp: normocephalic and atraumatic Eyes EOMs intact bilaterally General Eye: normal appearance of both eyes Neck full ROM, no lymphadenopathy, thyroid normal and No no carotid bruits General: trachea midline; Negative for lymphadenopathy or tenderness Thyroid: thyroid normal Resp normal respiratory effort and no use of accessory muscles Effort and Inspection: Negative for labored, stridor or audible wheezes Cardio regular rate and regular rhythm Back/Spine Cervical Spine: cervical ROM normal Extremity full ROM, normal capillary refill and no clubbing, cyanosis or edema Skin no rashes or lesions noted and no wounds Neuro oriented x3, CN's II-XII intact bilaterally, no focal motor deficits and no sensory deficits noted Psych thought process normal, cooperative, affect normal, speech normal and activity/motor behavior normal Results Lab / Micro Data 10/26/23 10:21 Labs: Laboratory Results - last 24 hr 10/26/23 10:21: WBC 13.4 H, RBC 3.26 L, Hgb 9.7 L, Hct 29.8 L, MCV 91.4, MCH 29.8, MCHC 32.6, RDW Std Deviation 41.8, RDW Coeff of David 12.5, Plt Count 320, MPV 8.6 Assessment & Plan Assessment/Plan (1) CKD (chronic kidney disease) stage 4, GFR 15-29 ml/min: PLAN: -place tunneled catheter
--- NOTE | 2023-10-26 15:18 | OP.PCM_ITS ---
Report of Operation Date of Procedure: 10/26/23 Pre-Operative Diagnosis: CKD Post-Operative Diagnosis: same Surgery/Procedure Performed:: insertion tunneled central venous catheter, right IJ Surgeon: Balta Fontana Type of Anesthesia: Local and Sedation,Conscious Estimated Blood Loss (mL): 2 Description of Procedure: HPI: Patient is a 68-year-old female with chronic kidney disease on the brink of requiring hemodialysis. She is taken now for urgent tunneled catheter placement. Description of procedure: Upon obtaining form consent and verification correct patient procedure site patient taken to the Public Relations Studies Director where she was positioned prepped and draped in usual sterile fashion. Time was performed, sedation ministered Versed and fentanyl. Skin overlying the right internal jugular vein was anesthetized 1% lidocaine the vessel accessed with a micropuncture needle wire. This then changed out for micropuncture sheath through which the J-wire for the tunnel catheter was advanced. The micropuncture sheath was then exchanged for serial dilators followed by the peel-away sheath. Skin on the superior aspect of the right chest wall was anesthetized 1% lidocaine and skin incision made through which the tunneler and catheter were passed through the subcutaneous tunnel up to the peel-away sheath site. Catheter was then advanced to the peel-away sheath and the peel-away sheath withdrawn advancing the catheter into position. Fluoroscopy was obtained to confirm the tip of the catheter was in satisfactory positioning at the atriocaval junction. Skin incision at the IJ puncture site was then closed with 4-0 Vicryl followed by Dermabond. Catheter was then secured with 2-0 silk sutures. The catheter was then hep-locked and caps placed after which sterile dressings were applied. Patient was then taken recovery room with anticipated discharged home.
== END 2023-10-26 16:03 | disposition home or self-care (01) ==
PROVIDERS: PCP Internal Medicine; Referring Provider Surgery Trauma Surgery; Visit Provider Surgery Trauma Surgery
DX: I12.9 Hypertensive chronic kidney disease with stage 1 through stage 4 chronic kidney disease, or unspecified chronic kidney disease (principal); N18.4 Chronic kidney disease, stage 4 (severe)
CPT/HCPCS: 36415; 36558; 76937; 77001; 85027; 99152; 99153; C1894; J7040

== ENCOUNTER → 2023-11-02 | Outpatient (CLI) | payer OTHER, SELFPAY ==
--- NOTE | 2023-11-02 09:03 | VDUE_ITS ---
Reason For Study: Preop planning Right Lower Arm Left Arm Proximal Radial artery diameter 2.8 x 2.7 Left Brachial artery diameter 4.0 x 3.7 mm. mm. Left Brachial artery waveform is triphasic . Proximal Radial artery waveform is Lateral Brachial vein diameter 3.6 x 3.7 mm. triphasic . Medial Brachial vein diameter 2.6 x 2.9 mm. Proximal Lateral Radial vein diameter 1.0 x Archery Instructor Vein is present. 1.3 mm. Archery Instructor Vein measures 3.8 mm. Proximal Medial Radial vein diameter 1.3 x Cephalic Vein at proximal upper arm measures 1.2 mm. 2.8 x 2.9 mm. Distal Radial artery diameter 2.9 x 2.7 mm. Cephalic vein at proximal upper arm depth Distal Lateral Radial vein diameter 1.0 x measures 6.6 mm. 0.9 mm. Cephalic Vein at mid upper arm measures 3.8 Distal Medial Radial vein diameter 1.0 x 1.1 x 3.8 mm. mm. Cephalic vein at mid upper arm depth Proximal Ulnar artery diameter 3.0 x 3.1 mm. measures 5.7 mm. Proximal Ulnar artery waveform is Cephalic Vein distal upper arm measures 3.7 triphasic . x 3.8 mm. Proximal Lateral Ulnar vein diameter 3.5 x Cephalic vein at distal upper arm depth 3.6 mm. measures 5.2 mm. Proximal Medial Ulnar vein diameter 3.0 x Cephalic Vein proximal forearm measures 3.8 3.1 mm. x 4.0 mm. Distal Ulnar artery diameter 2.2 x 2.5 mm. Cephalic Vein at mid forearm measures 4.2 x Distal Lateral Ulnar vein diameter 1.0 x 1.0 4.4 mm. mm. Cephalic Vein at distal forearm measures 4.1 Right Arm x 4.1 mm. Right Brachial artery diameter 3.8 x 3.7 mm. Proximal Basilic vein measures 6.4 x 6.3 mm. Right Brachial artery waveform is Proximal Basilic vein depth measures 7.9 mm. triphasic . Mid Basilic vein measures 6.0 x 5.7 mm. Lateral Brachial vein diameter 2.4 x 2.5 mm. Mid Basilic vein depth measures 7.5 mm. Medial Brachial vein diameter 1.7 x 1.7 mm. Distal Basilic vein measures 5.6 x 6.2 mm. Archery Instructor Vein is present. Distal Basilic vein depth measures 5.8 mm. Archery Instructor Vein measures 4.0 mm. Left Lower Arm Cephalic Vein at proximal upper arm measures Proximal Radial artery diameter 3.1 x 3.4 3.7 x 3.8 mm. mm. Cephalic vein at proximal upper arm depth Proximal Radial artery waveform is measures 8.0 mm. triphasic . Cephalic Vein at mid upper arm measures 6.4 Proximal Lateral Radial vein diameter 1.0 x x 6.6 mm. 1.2 mm. Cephalic vein at mid upper arm depth Proximal Medial Radial vein diameter 1.7 x measures 5.1 mm. 1.3 mm. Cephalic Vein distal upper arm measures 5.8 Distal Radial artery diameter 2.6 x 2.6 mm. x 6.2 mm. Distal Lateral Radial vein diameter 0.7 x Cephalic vein at distal upper arm depth 0.7 mm. measures 2.8 mm. Distal Medial Radial vein diameter 0.8 x 0.5 Cephalic Vein proximal forearm measures 4.3 mm. x 4.3 mm. Proximal Ulnar artery diameter 3.1 x 3.0 mm. Cephalic Vein at mid forearm measures 4.8 x Proximal Ulnar artery waveform is 4.6 mm. triphasic . Cephalic Vein at distal forearm measures 4.1 Proximal Lateral Ulnar vein diameter 2.2 x x 4.7 mm. 2.1 mm. Proximal Basilic vein measures 5.4 x 5.0 mm. Proximal Medial Ulnar vein diameter 2.9 x Proximal Basilic vein depth measures 9.3 mm. 3.3 mm. Mid Basilic vein measures 7.1 x 6.9 mm. Distal Ulnar artery diameter 1.0 x 1.0 mm. Mid Basilic vein depth measures 8.5 mm. Distal Lateral Ulnar vein diameter 0.3 x 0.5 Distal Basilic vein measures 6.7 x 6.7 mm. mm. Distal Basilic vein depth measures 5.0 mm. Distal Medial Ulnar vein diameter 0.5 x 0.5 mm. VL/Dialysis Vein Map PRE-OP BILAT Interpretation Summary Bilateral upper extremity arteries patent with normal waveforms and measurement s above. Bilateral upper extremity veins patent with measurements above. Ordering Physician: Brook Benoit Referring Physician: Alesha Thompson Performed By: Alina Tripathi RVT ???
== END | disposition home or self-care (01) ==
LOC: CVS 09:02
PROVIDERS: PCP Internal Medicine; Referring Provider Physician Assistant; Visit Provider Physician Assistant
DX: Z01.818 Encounter for other preprocedural examination (principal); N18.6 End stage renal disease; Z99.2 Dependence on renal dialysis
CPT/HCPCS: 93985

== ENCOUNTER 2024-01-02 05:26 | Day surgery (SDC) | payer SELFPAY, OTHER ==
[2023-12-29 13:06] LABS: Hematocrit 35.3 % (37-47); Hemoglobin 11.4 g/dL (12.0-15.0); Mean Corp Hgb Conc 32.3 g/dL (32-36); Mean Corpuscular Hgb 31.7 pg (27.0-32.0); Mean Corpuscular Volume 98.1 fL (81-99); Mean Platelet Vol. 9.4 fl (6.2-12.0); Platelet Count 181 K/mm3 (150-450); RBC Distribution Width CV 15.5 % (11.6-14.6); RBC Distribution Width SD 55.8 fl (35.1-43.9); White Blood Count 9.5 K/mm3 (4.4-11.0)
[2023-12-29 13:26] LABS: Anion Gap 7 (5-15); BUN 11 mg/dL (7-18); Calcium,Total 8.8 mg/dL (8.5-10.1); Chloride 98 mmol/L (98-107); Creatinine, Serum 2.19 mg/dL (0.55-1.02); EST Glomerular Filtration Rate 24 mL/min (>60); Est Glom Filt Rate - Afr Amer 29 mL/min (>60); Glucose 82 mg/dL (74-106); Potassium 2.8 mmol/L (3.5-5.1); Sodium Level 137 mmol/L (136-145)
[2024-01-01 13:23] LABS: Potassium 2.9 mmol/L (3.5-5.1)
[2024-01-02] VITALS (10 sets, daily range): BP systolic 102–158; BP diastolic 63–96; PULSE 56–70; RESP 16–18; TEMP 36.3–36.8; O2SAT 97–100; BMI 22.8
[2024-01-02] MEDS: 0.9% Normal Saline (500mL Bag) 500 ML 15 ML IV (06:32)
--- NOTE | 2024-01-02 07:11 | PCM.PRE.AN2 ---
ASA Classification* ASA Classification ASA Classification: 3 Assessment & Plan Anesthesia* Anesthesia Assessment Anesthesia Assessment: Discussed sedation and/or anesthesia options, risks, benefits, and alternatives with patient/parents/legal guardian/POA. Questions invited. The patient/parents/legal guardian/POA seems to understand and agrees to proceed with anesthesia plan. Reviewed the physical assessment, medical history, allergy history and patient home medications list prior to surgery/procedure/anesthetic and documented any changes. Performed airway and anesthesia risk assessments. Anesthesia Type Anesthesia Type: MAC (see written pre anesthesia record for full assessment) Anesthesia Focused Assessment* Temperature: 97.6 F Pulse Rate: 68 Blood Pressure: 116/96 Respiratory Rate: 18 Pulse Ox: 100 Airway Assessment Mouth opens: >3 cm Mallampati Score: II Focused Labs Anesthesia Preop lab: CBC WBC 9.5 K/mm3 (4.4-11.0) 12/29/23 12:43 RBC 3.60 M/mm3 (4.2-5.4) L 12/29/23 12:43 Hgb 11.4 g/dL (12.0-15.0) L 12/29/23 12:43 Hct 35.3 % (37-47) L 12/29/23 12:43 Plt Count 181 K/mm3 (150-450) 12/29/23 12:43 CHEMISTRY Potassium 3.0 mmol/L (3.5-5.1) L 01/02/24 06:15 Sodium 137 mmol/L (136-145) 12/29/23 12:43 Magnesium 2.0 mg/dL (1.6-2.6) 06/26/19 05:55 Phosphorus 2.8 mg/dL (2.5-4.9) 06/27/19 05:30 BUN 11 mg/dL (7-18) 12/29/23 12:43 Creatinine 2.19 mg/dL (0.55-1.02) H 12/29/23 12:43 Glucose 82 mg/dL (74-106) 12/29/23 12:43 TSH 2.83 uIU/mL (0.358-3.74) 06/25/19 06:18 COAG Pre-Assessment Diagnosis/Proposed Procedure Planned Operative Procedure(s): (L) Left upper Arteriovenous Fistula,Creation Anesthesia History Anesthesia History - medical laboratory assistant: Anesthesia History - medical laboratory assistant Hx Hospitalization Yes: PARATHYROID SURGERY AT 12/06/23 10:19 [facility] Any Problems With Anesthesia No 12/06/23 10:19 Cholinesterase deficiency No 12/06/23 10:19 You/Your Family Experience No 12/06/23 10:19 fever (hyperthermia) with Relationship Recent Exposure to Contagious No 01/02/24 06:33 Disease Does patient have nerve No 12/06/23 10:19 stimulator Patient instructed to have device shut off --Does patient have Pacemaker or ICD? When Was Last Pacemaker Check QUESTION #4 FULL TEXT: You/Your Family Experience fever (hyperthermia) with Anesthesia Last Oral Intake Last Oral intake: Last Oral Intake NPO since 00:00 01/02/24 06:33 Meds taken in AM with sips of No 01/02/24 06:33 water? Meds patient instructed to take am of surgery PONV PONV - medical laboratory assistant: PONV - medical laboratory assistant Female Yes 12/06/23 10:19 HX of Motion Sickness No 12/06/23 10:19 HX of N/V After Surgery No 12/06/23 10:19 Non-Smoker Yes 12/06/23 10:19 Duration of Surgery greater No 12/06/23 10:19 than 60 minutes Number of Risk Factors 2 12/06/23 10:19 PONV Score Moderate Risk 12/06/23 10:19 Height & Weight Height & Weight: Anesthesia: Height & Weight Height 5 ft 3 in 01/02/24 06:33 Weight: 58.513 kg 01/02/24 06:33 Body Mass Index (BMI) 22.8 01/02/24 06:33 Respiratory Assessment Respiratory Assessment - medical laboratory assistant: Respiratory Tract Infection Hx - medical laboratory assistant Hx Respiratory Tract Infection No 12/06/23 10:19 STOP Sleep Apnea STOP Sleep Apnea - medical laboratory assistant: STOP Sleep Apnea - medical laboratory assistant Hx Hypertension Yes 12/06/23 10:19 Hx Sleep Apnea No 12/06/23 10:19 CPAP BIPAP Do you snore loudly (louder No 12/06/23 10:19 than talking or can be heard Do you often feel tired/ No 12/06/23 10:19 fatigued/ sleepy during daytime? Has anyone observed you stop No 12/06/23 10:19 breathing during sleep? STOP Results Negative 12/06/23 10:19 QUESTION #5 FULL TEXT : Do you snore loudly (louder than talking or can be heard through closed doors)? Tobacco Use History Tobacco Use History - medical laboratory assistant: Tobacco Use History - medical laboratory assistant Tobacco Use Smoking Status Never smoker 12/06/23 10:19 Hx Tobacco Use No 12/06/23 10:19 Years Smoking Packs Smoked per Day Smoking Cessation Date was within the last 15 years Hx Smoking Cessation Date Hx Smoking Cessation Counseling Hematologic Medial History Hematologic Hx - medical laboratory assistant: Hematologic Medical Hx - ems director Hx of Blood Transfusion Yes 12/06/23 10:19 Hx of Transfusion in last 3 Yes 12/06/23 10:19 Months Date of Last Transfusion (if 10/18/23 12/06/23 10:19 within last 3 months) Ever experience any problems No 12/06/23 10:19 with transfusion(s)? Specify any problems Hx of Preganancy in last 3 No 12/06/23 10:19 Months Nurse Filling Out Transfusion [facility] 12/06/23 10:19 & Questions: Date: 12/06/23 12/06/23 10:19 Time: 10:12/06/23 10:19 Patient unable to answer at this time (ie. confused, unrespo /Reproduction History /Reproductive History - medical laboratory assistant: /Reproductive Hx- medical laboratory assistant Hx Now No 12/06/23 10:19 Gestational Age (in weeks): EDC: Hx Hx Para Hx Section SAB No 12/06/23 10:19 Active Medications Active Medications: Current Medications Generic Name Dose Route Start Last Admin Trade Name Freq PRN Reason Stop Dose Admin Cefazolin Sodium 2 gm/ Sodium 110 mls @ 150 mls/hr 01/02/24 07:30 Chloride IV 01/02/24 08:13 PREOP ONE Sodium Chloride 500 mls @ 0 mls/hr 01/02/24 06:15 01/02/24 06:32 IV 15 mls/hr .Q0M ELOY Administration KVO PFSH Medical History Wears dentures Wears glasses Gout History of renal dialysis Low iron History of hiatal hernia Non-smoker History of edema Hypercalcemia HTN (hypertension) Home Medications ?Medication ?Instructions ?Recorded ?Last Taken ?Type omega-3 fatty acids 1,000 mg 1,000 mg PO DAILY 10/28/19 01/01/24 History capsule pramipexole 0.25 mg tablet See Rx Instructions .Route 06/17/20 Unknown Rx .COMPLEX #30 tabs carvedilol 12.5 mg tablet 12.5 mg PO BID 10/19/23 01/01/24 History multivitamin (Daily Multi-Vitamin 1 tab PO DAILY 10/19/23 01/01/24 History tablet) Allergy/AdvReac Type Severity Reaction Status Date / Time No Known Allergies Allergy Verified 12/06/23 10:15 Family History Grandmother Cancer Mother Heart disease Father Hypertension Sister Kidney calculi Surgical History History of parathyroid surgery History of AAA (abdominal aortic aneurysm) repair History of appendectomy Status post surgical removal of both fallopian tubes History of removal of both ovaries Social History Smoking Status: Never smoker alcohol intake: never substance use type: does not use Review of Systems (Anesthesia) ROS Narrative System reviewed and no additional complaints, except as documented.
--- NOTE | 2024-01-02 07:32 | HP.PCM_ITS ---
HPI - General HPI Narrative ARY ZARATE, is a 68 F who presents with ESRD currently on dialysis via right IJ catheter without issue. She has had vein mapping that reveals adequate LUE vein and artery. [facility] Medical History Wears dentures Wears glasses Gout History of renal dialysis Low iron History of hiatal hernia Non-smoker History of edema Hypercalcemia HTN (hypertension) Home Medications ?Medication ?Instructions ?Recorded ?Last Taken ?Type omega-3 fatty acids 1,000 mg 1,000 mg PO DAILY 10/28/19 01/01/24 History capsule pramipexole 0.25 mg tablet See Rx Instructions .Route 06/17/20 Unknown Rx .COMPLEX #30 tabs carvedilol 12.5 mg tablet 12.5 mg PO BID 10/19/23 01/01/24 History multivitamin (Daily Multi-Vitamin 1 tab PO DAILY 10/19/23 01/01/24 History tablet) Allergy/AdvReac Type Severity Reaction Status Date / Time No Known Allergies Allergy Verified 12/06/23 10:15 Family History Grandmother Cancer Mother Heart disease Father Hypertension Sister Kidney calculi Surgical History History of parathyroid surgery History of AAA (abdominal aortic aneurysm) repair History of appendectomy Status post surgical removal of both fallopian tubes History of removal of both ovaries Social History Smoking Status: Never smoker alcohol intake: never substance use type: does not use ROS Constitutional Constitutional: Denies chills, fever(s), frequent falls, lethargy or weakness Eyes Eyes: Denies blind spots, change in vision or loss of vision ENT HEENT: Denies bleeding gums, hoarseness or sore throat Cardiovascular Cardiovascular: Denies abdominal pain, bluish discoloration of hand/feet, chest pain with activity, claudication, cold extremities, cyanosis, dyspnea on exertion, erythema on extremities, irregular heart rhythm, leg edema, leg ulcers, numbness in extremities or weakness in extremities Respiratory/Chest Respiratory/Chest: Denies cough, excessive phlegm production, shortness of breath at rest, shortness of breath with exertion or wheezing Gastrointestinal Gastrointestinal: Denies anorexia, change in stool character, constipation, diarrhea, melena or rectal bleeding Genitourinary Genitourinary: Denies dysuria or hematuria Musculoskeletal Musculoskeletal: Denies abnormal gait Integumentary Integumentary: Reports other Details: ; Denies erythema, non-healing lesions or wounds Neurologic Neurologic: Denies abnormal speech, focal weakness, headache(s), loss of vision, numbness, paresthesias or sensory deficit Hematologic/Lymphatic Hematologic/Lymphatic: Denies easy bleeding, easy bruising or lymphadenopathy Vital Signs Vital Signs Vital Signs: 01/02/24 06:33 01/02/24 06:33 01/02/24 07:12 Temperature 97.6 F L 97.6 F L Temperature Source Temporal Pulse Rate 68 68 Respiratory Rate 18 18 Respiratory Pattern Normal Blood Pressure 116/96 H 116/96 H Blood Pressure Mean 102 Blood Pressure Source Monitor Blood Pressure Position Sitting Pulse Ox 100 100 Oxygen Delivery Method Room Air Weight Weight: 129 lb Body Mass Index (BMI) 22.8 Physical Exam Const alert, oriented x3, no apparent distress and healthy appearing General Appearance: cooperative; Negative for combative or lethargic Orientation / Consciousness: awake Exam Limitations: no limitations HEENT Head and Scalp: normocephalic and atraumatic Eyes EOMs intact bilaterally General Eye: normal appearance of both eyes Neck full ROM General: trachea midline Resp normal respiratory effort and no use of accessory muscles Effort and Inspection: Negative for labored, stridor or audible wheezes Cardio regular rate and regular rhythm Back/Spine Cervical Spine: cervical ROM normal Extremity full ROM, normal capillary refill and no clubbing, cyanosis or edema Skin no rashes or lesions noted and no wounds Neuro oriented x3, CN's II-XII intact bilaterally, no focal motor deficits and no sensory deficits noted Psych thought process normal, cooperative, affect normal, speech normal and activity/motor behavior normal Results Lab / Micro Data 12/29/23 12:43 01/02/24 06:15 Labs: Laboratory Results - last 24 hr 01/01/24 12:24: Potassium 2.9 L 01/02/24 06:15: Potassium 3.0 L 01/02/24 06:25: Blood Type A NEGATIVE, Antibody Screen NEGATIVE Assessment & Plan Assessment/Plan (1) ESRD (end stage renal disease) on dialysis: PLAN: -left brach-ceph fistula
[2024-01-02] MEDS: Cefazolin 2 GM in 0.9% Normal Saline (100mL Bag) 100 ML IV (07:41)
[2024-01-02] MEDS: Heparin Injection (Vial) 5,000 UNIT/ML VIAL 5000 UNIT (08:05)
[2024-01-02] MEDS: Bupivacaine 0.25% 30 ML Vial (08:05)
[2024-01-02] MEDS: Lidocaine 1% (20 ml mdv) 20 ML Vial (08:05)
--- NOTE | 2024-01-02 09:21 | PCM.POST.ANE ---
Anesthesia: Postop Eval I Current Vital Signs Temperature: 98.2 F Pulse Rate: 68 Blood Pressure: 102/69 Respiratory Rate: 16 Pulse Ox: 100 Oxygen Delivery Method: Room Air Assessment Airway patent: Yes Spontaneous unlabored respirations: Yes Mental status: Awake and Calm nausea: No Vomiting: No Anesthesia Complication: No Fluid Hydration Crystalloid volume administer (ml): 350 Total IV fluid infused: 350 Progress Note Anesthesia document: Postop Eval 1 completed: Yes
--- NOTE | 2024-01-02 09:33 | PCM.POSTANE2 ---
Anesthesia Postop Eval I Sum Postop Eval Completion status Anesthesia document: Postop Eval 1 completed: Yes Anesthesia Postop Eval I Summary Anesthesia Postop Eval I Summary: Anesthesia Postop Eval I: Assessment Summary Airway patent Yes 01/02/24 09:22 INCISING MACHINE OPERATOR.NORM Spontaneous unlabored Yes 01/02/24 09:22 TR respirations Mental status Awake,Calm 01/02/24 09:22 INCISING MACHINE OPERATOR.NORM nausea No 01/02/24 09:22 INCISING MACHINE OPERATOR.NORM Vomiting No 01/02/24 09:22 TR Anesthesia Postop Eval I: Fluid Summary Crystalloid volume administer 350 01/02/24 09:22 PRASANTH.NORM (ml) Colloids volume administered ( ml) Blood Product volume administered (ml) Total IV fluid infused 350 01/02/24 09:22 TR Anesthesia Postop Eval I: Summary Notes Anesthesia Complication No 01/02/24 09:22 TR Anesthesia Complication Comment: Post-operative progress note Anesthesia: Postop Eval II Evaluation Mental status: Awake Pain Level: 0 nausea: No Vomiting: No
--- NOTE | 2024-01-02 10:05 | DCINST_ITS ---
Discharge Instructions Diet Discharge Diet: No restrictions Activity Lifting Restrictions: do not lift > 20 lbs with left arm for 2 weeks Additional Activity Instructions:: do not submerge incision for 2 weeks Dressing / Incision Call your doctor if your incision/area has: Sudden Increased Bleeding, Increased Pain/ Swelling, Increased Redness and Foul Smelling Discharge Call your doctor if you observe: Fever of 101 or Higher, Coldness, Increased Pain and Numbness or Tingling Remove Dressing in: 2 days Cleanse incision/area with: Soap & Water Follow Up Care Test Results: Test results from this visit will be discussed in further detail at your follow- up appointment, if applicable. Discharge Plan Admission Attending Provider: Balta Fontana Primary Care Provider: Giovany Damon Instructions Print Language: Uzbek Discharge Orders/Prescriptions Prescriptions: New oxycodone 5 mg tablet 5 mg PO Q8H PRN (Reason: pain) 1 Days Qty: 3 0RF Continued omega-3 fatty acids 1,000 mg capsule 1,000 mg PO DAILY carvedilol 12.5 mg tablet 12.5 mg PO BID Rx Instructions: must administer with a meal/food multivitamin [Daily Multi-Vitamin] Tablet 1 tab PO DAILY pramipexole 0.25 mg tablet See Rx Instructions .ROUTE .COMPLEX Qty: 30 1RF Dose Instruction: TAKE 1 TABLET BY MOUTH AT BEDTIME Rx Instructions: TAKE 1 TABLET BY MOUTH AT BEDTIME Referrals / Follow Up: Giovany Damon MD [Primary Care Provider] - Disposition Disposition (needs filled in before D/C Order can be placed): Home, Self Care
--- NOTE | 2024-01-02 10:08 | PCM.OPRPT ---
Report of Operation Date of Procedure: 01/02/24 Pre-Operative Diagnosis: ESRD Post-Operative Diagnosis: same Surgery/Procedure Performed:: left stage I basilic fistula Surgeon: Balta Fontana Type of Anesthesia: Local and MAC Estimated Blood Loss (mL): 5 Description of Procedure: HPI: Patient is a 68-year-old female with end-stage renal disease currently on dialysis. She had preoperative vein mapping which revealed satisfactory sized left upper extremity forearm cephalic, upper arm cephalic, upper arm basilic. She presents now for fistula creation with intended brachial upper arm cephalic anastomosis. Description of procedure: Upon obtaining form consent and verification correct patient procedure site patient taken the operating where she was positioned prepped and draped in usual sterile fashion. Timeouts performed and moderate sedation administered by anesthesia. Ultrasound was used to evaluate the cephalic vein in the upper arm and its relation to the brachial artery. There was a common cubital branch origin that split into both the cephalic and basilic veins in the upper arm. The cephalic vein itself appeared to be adequate sized in some locations with some intervening segments of either underfilled or diminutive vessel. Plan was to investigate the cephalic and attempt dilation with serial dilators and if inadequate would ligate the branch feeding cephalic basilic to be the fistula outflow. Skin overlying the vessels distal to the antecubital crease were anesthetized 1% lidocaine and transverse incision made with 15 blade. Bovie electrocautery was then used to dissect down through subcutaneous tissue until the vein was encountered. Sharp dissection was then used to dissect free proximal and distal and a right angle was placed vessel loop. We then carried our dissection down to the level of the fascia which was then incised in cruciate configuration exposing the brachial artery at its bifurcation. The proximity of the cubital branch actually reached more easily to the proximal radial artery this was dissected free proximal distal and right angle used to place Vesseloops. Patient was then heparinized allowed to circulate for 3 minutes. Cubital branch distal in the surgical field was then ligated with silk ties and divided. Dilators were then advanced through the cephalic branch first a 2.5 which met some amount of resistance though it did pass. A 3 mm dilator was then advanced and did not traverse the area of resistance. Is felt that this vessel would not likely matured so it was ligated with medium clip and dilators were then passed through the basilic branch first 2.5 followed by 3 and then 3.5. The radial artery was then occluded with Vesseloops and longitudinal arteriotomy was created with 11 blade extended with Wasserman scissors. The vein was then beveled to match the arteriotomy and anastomosis performed using 6-0 Prolene in a running fashion. Prior to completing suture line vessels were backbled after completing suture line satisfactory stasis was noted. There is a palpable ulnar pulse in the wrist and biphasic radial pulse. There is a palpable thrill in the outflow fistula. Heparin was then reversed with protamine the incision inspected for hemostasis. The incision was then closed with 3-0 Vicryl followed by 4 Monocryl and Dermabond for the skin. Patient was then taken the recovery room with anticipated discharge to home.
--- NOTE | 2024-01-02 10:40 | SUR.PHASEII ---
this nurse helped patient called dr. teresa's office to schedule follow up appointment. addition instruction given from Solomon for AV fistula creation.
== END 2024-01-02 11:02 | disposition home or self-care (01) ==
LOC: SDC 05:31 → AC 05:32
PROVIDERS: Anesthesiology; PCP Internal Medicine; Referring Provider Surgery Trauma Surgery; Visit Provider Surgery Trauma Surgery
PROC: (CPT 36821; principal; 2024-01-02 07:15)
DX: I12.0 Hypertensive chronic kidney disease with stage 5 chronic kidney disease or end stage renal disease (principal); N18.6 End stage renal disease; Z99.2 Dependence on renal dialysis; Z79.899 Other long term (current) drug therapy
CPT/HCPCS: 36821; 01844; 36415; 80048; 84132; 85027; 86850; 86900; 86901; A4648; J7040; J2405

== ENCOUNTER 2024-01-08 13:11 | Inpatient (IN) | payer OTHER, SELFPAY ==
[2024-01-08 13:11] VITALS: BP 128/69; PULSE 78; RESP 16; TEMP 36.7; O2SAT 97; BMI 23.1
--- NOTE | 2024-01-08 15:16 | EKG12_ITS ---
Test Reason : Blood Pressure : / mmHG Vent. Rate : 074 BPM Atrial Rate : 074 BPM P-R Int : 156 ms QRS Dur : 098 ms QT Int : 406 ms P-R-T Axes : 052 004 016 degrees QTc Int : 450 ms Normal sinus rhythm Minimal voltage criteria for LVH, may be normal variant ( Tsephon product ) Borderline ECG Confirmed by GUILLERMINA EUCEDA, MANJU ([id number]), medical transcription editor FABRIZIO HARRINGTON ([id number]) on 01/09/2024 8:49:17 AM Referred By: JOSHUA Confirmed By:MANJU SARMIENTO MD
--- NOTE | 2024-01-08 15:33 | VDUE_ITS ---
Reason For Study: LUE Pain Left Proximal Left jugular vein is spontaneous, widely patent, phasic, with no intraluminal echogenicity noted. Left subclavian vein is spontaneous, widely patent, phasic, with no intraluminal echogenicity noted. Left Arm Left axillary vein is spontaneous and patent but does not show augmentation due to presence of AVF. Left brachial vein is compressible. Lt Cephalic Dilated and NONCOMPRESSIBLE throughout forearm to AVF ANAS. Pt has HX of ligation of vessel during AVF placement surgery. Cephalic Vein is compressible from AC to shoulder. Basilic Vein is patent and demonstrates continuous flow in color doppler. Finding is consistent with AVF. Left Lower Arm Left radial vein is compressible. AVF ANAS Noted at Prox Rad A to AC Vein - Basilic V Flow is noted in color doppler. Left ulnar vein is compressible. Patient Safety LUE Venous duplex with B-Mode, Color and Pulsed Wave doppler. VL/Venous Duplex US, Unilateral Interpretation Summary Acute superficial vein thrombosis noted in the left cephalic vein. Deep veins of the left upper extremity are patent and compressible segmentally. There is no evidence of deep vein thrombosis. Ordering Physician: Jd Kaufman Referring Physician: Giovany Rosa Performed By: Jan Contreras RVT ???
[2024-01-08 15:45] LABS: Absolute Lymphocyte Count 1.06 X10^3/uL (0.83-4.51); Absolute Neutrophil Count 5.9 X10^3/uL (2.0-7.7); Basophil# 0.03 X10^3/uL; Basophil% 0.4 % (0-1); Eosinophil# 0.05 X10^3/uL; Eosinophils% 0.6 % (0-5); Hematocrit 32.1 % (37-47); Hemoglobin 10.2 g/dL (12.0-15.0); Lymphocyte # 1.06 X10^3/ul (0.83-4.51); Lymphocyte % 13.7 % (19-41); Mean Corp Hgb Conc 31.8 g/dL (32-36); Mean Corpuscular Hgb 31.3 pg (27.0-32.0); Mean Corpuscular Volume 98.5 fL (81-99); Mean Platelet Vol. 9.3 fl (6.2-12.0); Monocyte# 0.63 X10^3/uL; Monocyte% 8.2 % (0-10); NRBC Flagged by Analyzer 0 % (0-5); Neutrophil # 5.93 X10^3/uL (2.7-7.7); Neutrophil % 76.7 % (47-70); Platelet Count 221 K/mm3 (150-450); RBC Distribution Width SD 50.6 fl (35.1-43.9); Red Blood Count 3.26 M/mm3 (4.2-5.4); White Blood Count 7.7 K/mm3 (4.4-11.0)
--- NOTE | 2024-01-08 15:56 | EX.ED.UPPERE ---
HPI History of Present Illness Chief Complaint: Upper Extremity Injury Narrative Narrative: Patient is a 68-year-old female past medical history of hypertension, on renal dialysis with recent left-sided fistula placement by Dr. Fontana on Monday of this past week who presented to the emergency department the chief complaint of left upper extremity pain, weakness and concern for a blood clot in her finger. According the patient on Monday last week she had her procedure and noted that things are going well she states that she had some postoperative pain that eventually resolved. She states that on Monday again she started having increasing pain and noted that it was difficult for her to move her arm on the left side secondary to the pain. She states that she does have a history of gout and had her uric acid levels checked recently and they noted to be high therefore they thought this was more gout related. States that she is concerned as there is a bump in her finger on the left side index finger and was concerned that there may be a blood clot in this. She states that she brought this up to the dialysis team and they thought that based on her exam this could be due to steal syndrome. Patient denies any injuries. [facility] Medical History Wears dentures Wears glasses Gout History of renal dialysis Low iron History of hiatal hernia Non-smoker History of edema Hypercalcemia HTN (hypertension) Home Medications ?Medication ?Instructions ?Recorded ?Last Taken ?Type omega-3 fatty acids 1,000 mg 1,000 mg PO DAILY 10/28/19 01/01/24 History capsule pramipexole 0.25 mg tablet See Rx Instructions .Route 06/17/20 Unknown Rx .COMPLEX #30 tabs carvedilol 12.5 mg tablet 12.5 mg PO BID 10/19/23 01/01/24 History multivitamin (Daily Multi-Vitamin 1 tab PO DAILY 10/19/23 01/01/24 History tablet) oxycodone 5 mg tablet 5 mg PO Q8H PRN pain 1 day #3 tabs 01/02/24 Unknown Rx Allergy/AdvReac Type Severity Reaction Status Date / Time No Known Allergies Allergy Verified 01/08/24 13:14 Family History Grandmother Cancer Mother Heart disease Father Hypertension Sister Kidney calculi Surgical History History of parathyroid surgery History of AAA (abdominal aortic aneurysm) repair History of appendectomy Status post surgical removal of both fallopian tubes History of removal of both ovaries Social History Smoking Status: Never smoker alcohol intake: never substance use type: does not use ROS ROS ED ROS Narrative Constitutional: Denies any fevers, chills, headaches, lightness, dizziness Cardiovascular: Denies chest pain, palpitations Respiratory: Denies coughing wheezing shortness of breath Abdomen: Denies abdominal pain nausea vomit diarrhea : Denies any urinary symptoms Neurological: Complains of weakness in the left arm secondary to pain as noted above denies any numbness or tingling Musculoskeletal: Complains of left upper extremity pain Skin: Denies rashes or lesions EXAM Physical Exam Narrative Exam Narrative: General: Patient is lying in bed appears to be uncomfortable secondary to her left upper extremity pain Head: Atraumatic, normocephalic Eyes: PERRL bilateral, EOMI bilateral, no conjunctival injection noted Neck: Soft, supple, trach midline Cardiovascular: Regular rate and rhythm no murmurs gallops rubs noted Respiratory: Clear to auscultation bilaterally no rales rhonchi wheeze noted Abdomen: Soft, nondistended, nontender to palpation Musculoskeletal: Patient has a palpable thrill noted in the left antecubital fossa, patient has well-healing surgical incision noted no surrounding erythema no purulent discharge no concern for infection at this point in time patient has pain and with attempted movement of her left upper extremity. Extremities: Radial pulses +2/4 in the bilateral per extremities, +5/5 strength noted in the bilateral lower extremities, +5/5 strength noted in the right upper extremity, +3/5 strength noted in the left upper extremity Neurological: Patient was following commands knew that she was at [facility] year is 2023. NIH 0 GCS 15. Sensation grossly intact in the median ulnar and radial nerve distributions bilaterally Skin: Warm, dry, see musculoskeletal Const Vital Signs: 01/08/24 13:11 Temperature 98.1 F Temperature Source Oral Pulse Rate 78 Respiratory Rate 16 Blood Pressure 128/69 H Blood Pressure Mean 88 Pulse Ox 97 Oxygen Delivery Method Room Air MDM MDM MDM Narrative Medical decision making narrative: Patient is a 68-year-old female who presented to the emerged part with chief complaint of left upper extremity pain. Patient will have a workup performed here on the differential diagnose includes but not limited to upper extremity DVT, upper extremity superficial venous thrombosis, pathologic fracture, gallops. Once workup is obtained reviewed she will be reevaluated. Patient's CBC reviewed and showed no evidence leukocytosis white blood count normal at 7.7, hemoglobin stable at 10.2, platelet count was noted to be normal at 321, INR normal at 1.2, sodium normal at 137, potassium was low indicating hypokalemia 2.8 she was given 40 mill equivalents of IV replacement as well as 40 mill equivalents of oral potassium supplementation. Patient's creatinine was noted to be 3.55 once again is on dialysis, glucose was noted to be 141, AST and ALT were 11 and 6 respectively, troponin normal at 8, EKG was reviewed and independently interpreted by myself which showed sinus rhythm with a rate of 74 bpm. Patient's urinalysis showed 500 leukocyte esterase 10-25 white blood cells with 2+ bacteria this will be sent for culture. Patient's x-ray of her shoulder was reviewed and showed mild degenerative changes no acute fracture or dislocation. Patient's x-ray of her elbow showed postsurgical changes no acute fracture or other significant bony pathology. Patient's x-ray of her chest reviewed and showed minor subsegmental atelectasis left lower lobe. Patient's ultrasound of her left upper extremity did reveal some clot burden in the forearm in the region of the cephalic vein per oil burner technician and notes that this area was ligated for her fistula. I called and discussed the case with Dr. Fontana physician assistant prosecuting attorney who is recommending getting CT angiography of the left upper extremity. On reevaluation the patient she states that once again her symptoms of her left upper extremity weakness started on Monday therefore she would not be a large vessel occlusion candidate nor a tenecteplase candidate of her left arm weakness. She has significant weakness in this left upper extremity therefore we will add on a CT of her head as well as the CT angiography of the left upper extremity. Once these are back I do believe the patient will require admission to the hospital for further stroke workup as well as her hypokalemia and her left upper extremity pain. Patient case will be signed out to oncoming rider see their note for ultimate disposition details. Lab Data Labs: Laboratory Results - last 24 hr 01/08/24 15:35 WBC 7.7 RBC 3.26 L Hgb 10.2 L Hct 32.1 L MCV 98.5 MCH 31.3 MCHC 31.8 L RDW Std Deviation 50.6 H RDW Coeff of David 14.0 Plt Count 221 MPV 9.3 Immature Gran % (Auto) 0.400 Neut % (Auto) 76.7 H Lymph % (Auto) 13.7 L Gooding % (Auto) 8.2 Eos % (Auto) 0.6 Baso % (Auto) 0.4 Absolute Neuts (auto) 5.9 Absolute Lymphs (auto) 1.06 Nucleated RBC % 0 Discharge Plan Triage Chief Complaint: Upper Extremity Injury ED Provider: Jd Kaufman Dx/Rx/DC Orders Clinical Impression: Left arm weakness, Arm pain, left Prescriptions: No Action omega-3 fatty acids 1,000 mg capsule 1,000 mg PO DAILY carvedilol 12.5 mg tablet 12.5 mg PO BID Rx Instructions: must administer with a meal/food multivitamin [Daily Multi-Vitamin] Tablet 1 tab PO DAILY oxycodone 5 mg tablet 5 mg PO Q8H PRN (Reason: pain) 1 Days Qty: 3 0RF pramipexole 0.25 mg tablet See Rx Instructions .ROUTE .COMPLEX Qty: 30 1RF Dose Instruction: TAKE 1 TABLET BY MOUTH AT BEDTIME Rx Instructions: TAKE 1 TABLET BY MOUTH AT BEDTIME Primary Care Provider: Giovany Damon Referrals: Giovany Damon MD [Primary Care Provider] - Print Language: Lithuanian
[2024-01-08 16:02] LABS: International Normalized Ratio 1.2
[2024-01-08 16:03] LABS: Partial Thromboplast Time 32.1 Seconds (24.1-36.2)
[2024-01-08] MEDS: 0.9% Normal Saline (1000mL) 1,000 ML 999 ML IV (16:05)
[2024-01-08 16:15] LABS: ALB/GLOB Ratio 0.4 RATIO (0.9-2.4); AST(SGOT) 11 U/L (15-37); Alanine Aminotransfer ALT/SGPT < 6 U/L (13-56); Albumin, Serum 2.4 g/dL (3.2-5.0); Alkaline Phosphatase 62 U/L (45-117); Anion Gap 6 (5-15); BUN 16 mg/dL (7-18); BUN/Creat Ratio 4.5 RATIO (10-20); Calcium,Total 8.7 mg/dL (8.5-10.1); Chloride 97 mmol/L (98-107); Creatinine, Serum 3.55 mg/dL (0.55-1.02); EST Glomerular Filtration Rate 14 mL/min (>60); Est Glom Filt Rate - Afr Amer 16 mL/min (>60); Estimated Creatinine Clearance 12.55 ml/min; Globulin 5.4 g/dL (2.2-4.2); Glucose 141 mg/dL (74-106); Potassium 2.8 mmol/L (3.5-5.1); Protein, Total 7.8 g/dL (6.4-8.2); Sodium Level 137 mmol/L (136-145); Troponin-I HS 8 pg/mL (3.0-54.0)
[2024-01-08 16:17] LABS: Mucous, Urine 0 SEEN /hpf (<or=2+)
--- NOTE | 2024-01-08 16:24 | RAD_ITS ---
STUDY: X-RAY - LEFT ELBOW REASON FOR EXAM: Female, 68 years old. pain TECHNIQUE: 3 view(s) of the elbow. COMPARISON: None. FINDINGS: Normal visualized humerus, radius and ulna. Normal radiocapitellar and ulnotrochlear articulations. Metallic clips are noted within the soft tissues of the anterior aspect of the proximal forearm. RAD/Elbow min 3 Views IMPRESSION: Postsurgical changes. No acute fracture or other significant bony pathology. Electronically Signed: Candido Mack MD at 16:46 EDT ,
--- NOTE | 2024-01-08 16:24 | RAD_ITS ---
STUDY: X-RAY - LEFT SHOULDER REASON FOR EXAM: Female, 68 years old. pain TECHNIQUE: 2 view(s) of the shoulder. COMPARISON: None. FINDINGS: Normal glenohumeral articulation. Minor spurring of the acromioclavicular joint. Normal acromion. Normal humeral head and visualized proximal humerus. Mild periarticular soft tissue calcification likely calcific tendinitis. Normal visualized pulmonary apex. RAD/Shoulder min 2 Views IMPRESSION: Mild degenerative change. No acute fracture or dislocation Electronically Signed: Candido Mack MD at 16:49 EDT ,
--- NOTE | 2024-01-08 16:24 | RAD_ITS ---
STUDY: X-RAY CHEST REASON FOR EXAM: Female, 68 years old. recent fistula placement TECHNIQUE: AP portable COMPARISON: None. FINDINGS: Minor subsegmental atelectasis in left lower lobe. There is no demonstrated pleural abnormality. Normal size heart. Normal mediastinum and bethel. Normal visualized pulmonary arteries. Calcified aortic arch and descending thoracic aorta. Dialysis catheter noted with tip in right atrium Mild degenerative changes of the dorsal spine and shoulders. Normal visualized ribs, and clavicles. There is no demonstrated abnormality of the visualized soft tissue structures of the upper abdomen. RAD/Chest 1 View (Portable) IMPRESSION: Minor subsegmental atelectasis left lower lobe. Electronically Signed: Candido Mack MD at 16:51 EDT ,
[2024-01-08 16:26] LABS: Color, Urine Yellow (Yellow); Glucose, Dipstick Normal (Normal); Ketone-Dipstick Negative (Negative); Leukocyte Esterase-Dipstick 500 /ul (Negative); Nitrite-Dipstick Negative (Negative); Occult Blood-Urine 10 /ul (Negative); Protein-Dipstick 100 mg/dl (Negative); Specific Gravity, Urine 1.015 (1.002-1.030); Urine Bilirubin Dipstick Negative (Negative); Urine Clarity Cloudy (Clear); Urine Urobilinogen Normal (Normal)
--- NOTE | 2024-01-08 16:53 | CT_ITS ---
EXAMINATION: CTA CTA Upper Extremity W/ Contrast Injection (and W/O Contrast Images if performed) DATE: 01/08/2024 5:40 PM CLINICAL INDICATION: 68 years old Female. LUE pain recent fistula placement RADIATION DOSE INFORMATION: Automated exposure control dose reduction techniques were used. TECHNIQUE: Contiguous axial images were acquired through the left upper extremity.. Sagittal and coronal MIP reconstructions were rendered. CONTRAST: 100 cc [id number] COMPARISON: None. FINDINGS: Arterial supply from the left axillary artery through the left upper extremity to the radial and are ulnar arteries is intact. Distal to the wrist motion artifact limits evaluation. No acute bony abnormalities. Calcifications about the left humeral head. The fistula from the left subclavian vein and the medial soft tissues of the left upper extremity is intact to its anastomosis distally with the radial artery. Subcutaneous soft tissue edema lateral to the proximal ulna. CT/CTA Upper Ext W/WO Contrast IMPRESSION: Intact arterial supply to the left upper extremity. Associated fistula appears intact. Soft tissue edema/contusion/cellulitis lateral to the proximal ulna. Electronically Signed: Nas Cannon MD at 18:55 EDT ,
[2024-01-08 17:00] VITALS: PULSE 77; RESP 18; O2SAT 98
[2024-01-08] MEDS: Potassium Phosphate 40 MM in 0.9% Normal Saline (500mL Bag) 500 ML 62.5 MM IV (17:02)
[2024-01-08] MEDS: Potassium Chloride Oral Soln 20 MEQ/15 ML UDC 40 MEQ PO (17:03)
[2024-01-08 17:18] LABS: Red Blood Cells-Urine 0-5 SEEN /hpf (0-5); White Blood Cells 10-25 SEEN /hpf (0-5)
[2024-01-08 17:19] LABS: Bacteria 2+ /hpf (None Seen); Squamous Epithelial Cells - UA 0-5 SEEN /hpf (5-10)
--- NOTE | 2024-01-08 17:21 | CT_ITS ---
STUDY: CT BRAIN WITHOUT CONTRAST REASON FOR EXAM: Female, 68 years old. GLENIS riley RADIATION DOSAGE (If Supplied By Facility): CTDIvol = ( 44.99 ) mGy, DLP = ( 812.98 ) mGycm TECHNIQUE: Transaxial CT imaging of the brain was performed without administration of intravenous contrast material. Individualized dose optimization techniques were used for this CT. COMPARISON: No relevant priors. FINDINGS: Normal soft tissue structures. Normal calvarium. Mild calcific plaquing of the cavernous carotids and right internal carotid at the bifurcation demonstrating moderate to severe narrowing . There is also prominent calcific plaquing of the distal vertebral arteries with significant stenosis bilaterally Mild atrophy and periventricular white matter ischemic changes. Normal basal ganglia and thalami. Normal brainstem. Normal cerebellum. There is no intracranial hemorrhage. There are no findings of an acute ischemic infarction. Mild right maxillary left ethmoid sinus disease. Postsurgical changes of the orbits. CT/Brain/Head without Contrast IMPRESSION: Mild atrophy and periventricular white matter ischemic changes. No evidence for acute bleed There is moderate to advanced atherosclerotic disease for stated age. If concern for acute infarct MRI/MRA recommended Electronically Signed: Candido Mack MD at 18:21 EDT ,
[2024-01-08 18:26] VITALS: BP 163/86; PULSE 78; RESP 18; TEMP 36.6; O2SAT 99
[2024-01-08 18:54] VITALS: BP 158/77; PULSE 78; RESP 17
--- NOTE | 2024-01-08 19:44 | HP.PCM_ITS ---
HPI - General General Date of Admission: 01/08/24 Date of Service: 01/08/24 Chief Complaint: Left arm pain and weakness HPI Narrative ARY ZARATE, is a 68 F who presents to the emergency room with chief complaint of left arm pain and weakness. Patient had a fistula placed in her left arm this previous week for renal dialysis and was seen earlier today at dialysis and found to have marked left arm weakness and pain. CT angiogram of the left upper extremity shows arterial blood flow is intact through the fistula to the distal extremity. Patient does report a history of gout but is not currently taking any medication for it. CT head is within normal limits other labs are unremarkable at this time. Patient denies headache, chest pain, shortness of breath, fevers or chills, and denies any other neurologic symptoms at this present time. Patient will be admitted to progressive care unit for observation to rule out stroke and uric acid level will be obtained. [facility] Medical History (Updated 01/08/24 @ 19:[address] Otis Zhao MD) Wears dentures Wears glasses Gout History of renal dialysis Low iron History of hiatal hernia Non-smoker History of edema Hypercalcemia HTN (hypertension) Home Medications ?Medication ?Instructions ?Recorded ?Last Taken ?Type omega-3 fatty acids 1,000 mg 1,000 mg PO DAILY 10/28/19 01/01/24 History capsule pramipexole 0.25 mg tablet See Rx Instructions .Route 06/17/20 Unknown Rx .COMPLEX #30 tabs carvedilol 12.5 mg tablet 12.5 mg PO BID 10/19/23 01/01/24 History multivitamin (Daily Multi-Vitamin 1 tab PO DAILY 10/19/23 01/01/24 History tablet) Allergy/AdvReac Type Severity Reaction Status Date / Time No Known Allergies Allergy Verified 01/08/24 13:14 Family History Grandmother Cancer Mother Heart disease Father Hypertension Sister Kidney calculi Surgical History History of parathyroid surgery History of AAA (abdominal aortic aneurysm) repair History of appendectomy Status post surgical removal of both fallopian tubes History of removal of both ovaries Social History Smoking Status: Never smoker alcohol intake: never substance use type: does not use ROS Constitutional Constitutional: Denies anorexia, chills or fever(s) Eyes Eyes: Denies blurry vision or change in vision ENT HEENT: Denies abnormal hearing, dysphagia or ear pain Cardiovascular Cardiovascular: Denies chest pain or palpitations Respiratory/Chest Respiratory/Chest: Denies cough or shortness of breath at rest Gastrointestinal Gastrointestinal: Denies abdominal pain, constipation, diarrhea, nausea or vomiting Genitourinary Genitourinary: Denies dysuria Musculoskeletal Musculoskeletal: Reports extremity pain Integumentary Integumentary: Denies dry skin Neurologic Neurologic: Denies abnormal gait Psychiatric Psychiatric: Denies anxiety Vital Signs Vital Signs Vital Signs: 01/08/24 13:11 01/08/24 17:00 01/08/24 18:26 Temperature 98.1 F 98 F Temperature Source Oral Pulse Rate 78 77 78 Respiratory Rate 16 18 18 Blood Pressure 128/69 H 163/86 H Blood Pressure Mean 88 111 Pulse Ox 97 98 99 Oxygen Delivery Method Room Air 01/08/24 18:54 Temperature Temperature Source Pulse Rate 78 Respiratory Rate 17 Blood Pressure 158/77 H Blood Pressure Mean 104 Pulse Ox Oxygen Delivery Method Weight Weight: 130 lb 7 oz Body Mass Index (BMI) 23.1 Physical Exam Const alert, oriented x3 and well nourished General Appearance: cooperative and well developed HEENT normocephalic and head/scalp atraumatic Eyes PERRL and EOMs intact bilaterally Neck no lymphadenopathy and supple Lymph Lymphatic: no lymphadenopathy noted Resp normal respiratory effort, normal air movement and clear to auscultation bilaterally Cardio regular rate, regular rhythm, S1 normal heart sound and S2 normal heart sound GI normal to inspection, nondistended, normoactive bowel sounds and soft to palpation Extremity normal capillary refill Extremity Narrative: Left upper extremity 3/5 strength with decreased range of motion due to pain. Significant point tenderness at left wrist Skin General Skin Exam: no breakdown Neuro CN's II-XII intact bilaterally Neuro Narrative: Left upper extremity weakness as above Speech: speech normal Psych thought process normal, cooperative and affect normal Results Lab / Micro Data 01/08/24 15:35 01/08/24 15:35 Labs: Laboratory Results - last 24 hr 01/08/24 15:35: WBC 7.7, RBC 3.26 L, Hgb 10.2 L, Hct 32.1 L, MCV 98.5, MCH 31.3, MCHC 31.8 L, RDW Std Deviation 50.6 H, RDW Coeff of David 14.0, Plt Count 221, MPV 9.3, Immature Gran % (Auto) 0.400, Neut % (Auto) 76.7 H, Lymph % (Auto) 13.7 L, Teller % (Auto) 8.2, Eos % (Auto) 0.6, Baso % (Auto) 0.4, Absolute Neuts (auto) 5.9, Absolute Lymphs (auto) 1.06, Nucleated RBC % 0, PT 15.0 H, INR 1.2, APTT 32.1, Sodium 137, Potassium 2.8 L, Chloride 97 L, Carbon Dioxide 34.0 H, Anion Gap 6, BUN 16, Creatinine 3.55 H, Estim Creat Clear Calc 12.55, Est GFR (MDRD) Af Amer 16 L, Est GFR (MDRD) Non-Af 14 L, BUN/Creatinine Ratio 4.5 L, Glucose 141 H, Calcium 8.7, Total Bilirubin 0.60, AST 11 L, ALT < 6 L, Alkaline Phosphatase 62, Troponin I High Sens 8, Total Protein 7.8, Albumin 2.4 L, G lobulin 5.4 H, Albumin/Globulin Ratio 0.4 L 01/08/24 16:11: Urine Color Yellow, Urine Clarity Cloudy, Urine pH 8.0, Ur Specific Curlew 1.015, Urine Protein 100 H, Urine Glucose (UA) Normal, Urine Ketones Negative, Urine Occult Blood 10 H, Urine Nitrite Negative, Urine Bilirubin Negative, Urine Urobilinogen Normal, Ur Leukocyte Esterase 500 H, Urine RBC 0-5 SEEN, Urine WBC 10-25 SEEN, Ur Squamous Epith Cells 0-5 SEEN, Urine Bacteria 2+, Urine Mucus 0 SEEN Imaging Radiology Impression Chest X-Ray 01/08/24 16:24 IMPRESSION: Minor subsegmental atelectasis left lower lobe. Electronically Signed: Candido Mack MD at 16:51 EDT , Elbow X-Ray 01/08/24 16:24 IMPRESSION: Postsurgical changes. No acute fracture or other significant bony pathology. Electronically Signed: Candido Mack MD at 16:46 EDT , Shoulder X-Ray 01/08/24 16:24 IMPRESSION: Mild degenerative change. No acute fracture or dislocation Electronically Signed: Candido Mack MD at 16:49 EDT , Upper Extremity CTA 01/08/24 16:53 IMPRESSION: Intact arterial supply to the left upper extremity. Associated fistula appears intact. Soft tissue edema/contusion/cellulitis lateral to the proximal ulna. Electronically Signed: Nas Cannon MD at 18:55 EDT , Brain CT 01/08/24 17:21 IMPRESSION: Mild atrophy and periventricular white matter ischemic changes. No evidence for acute bleed There is moderate to advanced atherosclerotic disease for stated age. If concern for acute infarct MRI/MRA recommended Electronically Signed: Candido Mack MD at 18:21 EDT , Assessment & Plan Assessment/Plan (1) Arm pain, left: (2) Left arm weakness: (3) ESRD (end stage renal disease) on dialysis: (4) Hypertension: (5) Gout: PLAN: Plan 1. Left arm pain and left arm weakness?admit patient to progressive care unit for observation, neurologic evaluations every 4 hours, MRI/MRA head and neck in a.m. will add baby aspirin if patient not already on 2. End-stage renal disease?will consult nephrology if patient remains in the hospital and needs dialysis 3. Hypertension?continue routine home medications 4. Gout?check uric acid level and address accordingly 5. DVT prophylaxis?SCDs due to end-stage renal disease Charges/Coding Visit Charges OBSV E&M: 81037 Observ/hosp same date L2
--- NOTE | 2024-01-08 19:57 | MRI_ITS ---
STUDY: MRA NECK WITHOUT CONTRAST REASON FOR EXAM: Female, 68 years old. Stroke, LT ARM PAIN AND WEAKNESS, POST LT ARM FISTULA X1 WEEK TECHNIQUE: Source images were obtained, MIPs were performed. The study was performed unenhanced. COMPARISON: None. FINDINGS: RIGHT CAROTID ARTERIES: Normal right common carotid artery (CCA). Normal right carotid bulb. Normal origin of the right internal carotid (ICA) artery without a hemodynamically significant stenosis. Normal visualized cervical portion of the right internal carotid artery. Normal origin of the right external carotid artery (ECA). LEFT CAROTID ARTERIES: Normal left common carotid artery (CCA). Normal left carotid bulb. Normal origin of the left internal carotid (ICA) artery without a hemodynamically significant stenosis. Normal visualized cervical portion of the left internal carotid artery. Normal origin of the left external carotid artery (ECA). VERTEBRAL ARTERIES: Normal antegrade flow within the bilateral vertebral artery without a hemodynamically significant stenosis. MRI/MRA Neck without Contrast IMPRESSION: Normal bilateral cervical carotid and vertebral arteries. Electronically Signed: Yasir Mayo MD at 11:23 EDT ,
[2024-01-08 20:45] VITALS: BMI 23.1
[2024-01-08 20:55] VITALS: O2SAT 97
[2024-01-08 21:23] VITALS: BP 156/86; PULSE 80; RESP 18; TEMP 36.8; O2SAT 96
[2024-01-08] MEDS: Pramipexole Di-HCl 0.25 MG Tablet PO (21:37)
[2024-01-08] MEDS: Carvedilol 12.5 MG Tablet PO (21:37)
[2024-01-08] MEDS: Aspirin 81 MG TAB.CHEW PO (21:37)
[2024-01-08] MEDS: Potassium Chloride Oral Tablet 20 MEQ PO (21:37)
[2024-01-08 22:07] LABS: Uric Acid 2.7 mg/dL (2.6-6.0)
[2024-01-09] VITALS (8 sets, daily range): BP systolic 127–149; BP diastolic 69–83; PULSE 68–81; RESP 16–18; TEMP 35.9–36.8; O2SAT 94–97; BMI 23.1
--- NOTE | 2024-01-09 05:55 | MRI_ITS ---
We are attempting to reach an attending provider to discuss findings. An addendum with communication details will be sent when the communication is complete. EXAM: MR HEAD WITHOUT INTRAVENOUS CONTRAST CLINICAL INDICATION: Stroke. Left arm pain and weakness. Post left arm AV graft x1 week. TECHNIQUE: Multiplanar and multisequence MR images of the brain were obtained without intravenous contrast. COMPARISON: CT head without contrast 01/08/2024. FINDINGS: BRAIN AND EXTRA-AXIAL SPACES: Tiny diffusion restriction in the left frontal operculum (series 4, image 16) is acute lacunar ischemic infarct. No other acute infarcts. No remote cortical-based ischemic infarct. T2 FLAIR hyperintensity foci in the white matter of both cerebral hemispheres are chronic white matter ischemic changes. No intra- or extra-axial hemorrhage. No intracranial mass or mass effect. Posterior fossa structures are unremarkable. Ventricles are appropriate for age. No hydrocephalus. Basal cisterns are patent. SELLA: Unremarkable. Normal sella turcica, pituitary gland, infundibular stalk, optic chiasm and hypothalamus. AUDITORY SYSTEM: Unremarkable. The internal auditory canals are patent. BONES/JOINTS: Unremarkable. No discrete lytic or blastic abnormalities. SINUSES: Unremarkable as visualized. Clear. MASTOID AIR CELLS: Unremarkable as visualized. Clear. ORBITS: Unremarkable as visualized. Both globes, extraocular muscles, optic nerves and retrobulbar fat appear unremarkable. VASCULATURE: Unremarkable as visualized. Normal flow voids in the major intracranial circulation. MRI/Brain without Contrast IMPRESSION: 1. Acute lacunar ischemic infarct in the left frontal operculum. This is suspicious pericardium body can origin since the MRA head and neck are negative. 2. Chronic white matter ischemic changes in both cerebral hemispheres. Electronically Signed: Yasir Mayo MD at 12:05 EDT ,
[2024-01-09 06:28] LABS: Absolute Lymphocyte Count 1.59 X10^3/uL (0.83-4.51); Absolute Neutrophil Count 4.9 X10^3/uL (2.0-7.7); Basophil# 0.03 X10^3/uL; Basophil% 0.4 % (0-1); Eosinophil# 0.07 X10^3/uL; Eosinophils% 0.9 % (0-5); Hematocrit 30.3 % (37-47); Hemoglobin 9.4 g/dL (12.0-15.0); Lymphocyte # 1.59 X10^3/ul (0.83-4.51); Lymphocyte % 21.5 % (19-41); Mean Corpuscular Hgb 31.4 pg (27.0-32.0); Mean Corpuscular Volume 101.3 fL (81-99); Mean Platelet Vol. 9.7 fl (6.2-12.0); Monocyte# 0.78 X10^3/uL; Monocyte% 10.5 % (0-10); NRBC Flagged by Analyzer 0 % (0-5); Neutrophil # 4.89 X10^3/uL (2.7-7.7); Neutrophil % 66.2 % (47-70); Platelet Count 234 K/mm3 (150-450); RBC Distribution Width CV 14.2 % (11.6-14.6); RBC Distribution Width SD 53.1 fl (35.1-43.9); Red Blood Count 2.99 M/mm3 (4.2-5.4); White Blood Count 7.4 K/mm3 (4.4-11.0)
[2024-01-09 06:48] LABS: Anion Gap 8 (5-15); BUN 21 mg/dL (7-18); BUN/Creat Ratio 4.8 RATIO (10-20); Calcium,Total 8.6 mg/dL (8.5-10.1); Chloride 106 mmol/L (98-107); Cholesterol 212 mg/dL (200); Creatinine, Serum 4.36 mg/dL (0.55-1.02); EST Glomerular Filtration Rate 11 mL/min (>60); Est Glom Filt Rate - Afr Amer 13 mL/min (>60); Estimated Creatinine Clearance 10.22 ml/min; Glucose 87 mg/dL (74-106); High Density Lipoprotein 43 mg/dL; Potassium 4.3 mmol/L (3.5-5.1); Sodium Level 139 mmol/L (136-145); Triglycerides 76 mg/dL; Very Low Density Lipoprotein 15 mg/dL (5-40)
[2024-01-09] MEDS: Multivitamins,Therapeutic Tablet 1 TABLET PO (08:36)
--- NOTE | 2024-01-09 12:17 | ECHOD_ITS ---
Reason For Study: STROKE/TIA Procedure This was a 2D Doppler, Color Flow transthoracic echocardiogram. Exam performed portable in patient room. Left Ventricle Normal LV size. The estimated ejection fraction is 60 %. No evidence for diastolic dysfunction. No regional wall motion abnormalities noted. Right Ventricle Normal RV size. Normal systolic function. Atria The left atrium is mildly enlarged. Normal right atrium. No doppler evidence for ASD. Bubble contrast study negative for right to left interatrial shunt. Mitral Valve There is no mitral valve stenosis. No mitral valve insufficiency. Tricuspid Valve There is no tricuspid stenosis. Mild tricuspid valve insufficiency. Pulmonary artery systolic pressure is 35 mmHg. Aortic Valve Aortic sclerosis, no stenosis. Trivial aortic valve insufficiency. Pulmonic Valve There is no pulmonic valvular stenosis. No pulmonic valve insufficiency. Great Vessels Normal aortic root. Pericardium/Pleural No pericardial effusion. Medication Performed a rapid injection of agitated mix of 9 cc saline and 1cc air to assess for atrial septal defect. MMode/2D Measurements & Calculations LVIDd: 5.4 cm IVSd: 1.2 cm LVOT diam: 2.2 cm LVIDs: 3.2 cm LVPWd: 1.1 cm RVDd: 3.0 cm FS: 40.3 % LVOT area: 3.8 cm2 asc Aorta Diam: 3.9 cm LAV(MOD-bp): 48.2 ml LVAd ap4: 26.5 cm2 LAV(MOD-bp) Indexed: 30.0 ml/m2 LVLd ap4: 7.0 cm LAV(MOD-sp2): 44.0 ml EDV(MOD-sp4): 80.1 ml LAV(MOD-sp4): 52.8 ml EDV(sp4-el): 84.9 ml LVAs ap4: 13.6 cm2 LVLs ap4: 6.1 cm ESV(MOD-sp4): 25.4 ml ESV(sp4-el): 25.6 ml EF(MOD-sp4): 68.3 % EF(sp4-el): 69.9 % LVAd ap2: 25.6 cm2 SV(MOD-sp4): 54.7 ml SV(MOD-sp2): 42.7 ml LVLd ap2: 7.2 cm EDV(MOD-sp2): 73.8 ml EDV(sp2-el): 77.1 ml LVAs ap2: 15.2 cm2 LVLs ap2: 6.1 cm ESV(MOD-sp2): 31.1 ml ESV(sp2-el): 31.9 ml EF(MOD-sp2): 57.9 % SV(sp4-el): 59.3 ml Ao sinus diam: 2.[address] Junction: 2.5 cm LA dimension(2D): 4.1 cm LA A4 area: 18.6 cm2 RA A4 area: 11.3 cm2 TAPSE: 1.8 cm Time Measurements MV dec time: 0.19 sec Doppler Measurements & Calculations MV E max ramakrishna: 78.9 cm/sec Lat Peak E' Ramakrishna: 9.2 cm/sec Med Peak E' Ramakrishna: 8.5 cm/sec MV A max ramakrishna: 101.9 cm/sec E/E' lat: 8.5 E/E' med: 9.3 MV E/A: 0.77 MV dec slope: 405.2 cm/sec2 Ao V2 max: 173.2 cm/sec AI max ramakrishna: 397.1 cm/sec Ao max P.0 mmHg AI max P.1 mmHg Ao V2 mean: 115.2 cm/sec AI dec slope: 218.4 cm/sec2 Ao mean P.1 mmHg AI P1/2t: 532.4 msec Ao V2 VTI: 37.5 cm AV (velocity ratio): 0.73 RUSTY(I,D): 2.8 cm2 RUSTY(V,D): 2.7 cm2 LV V1 max: 122.2 cm/sec SV(LVOT): 103.2 ml PA V2 max: 83.6 cm/sec LV V1 max P.0 mmHg PA max PG (full): 0.58 mmHg LV V1 mean P.1 mmHg LV V1 mean: 82.9 cm/sec LV V1 VTI: 27.2 cm TR max ramakrishna: 275.0 cm/sec TR max P.2 mmHg ECHO/Echo Complete Interpretation Summary The estimated ejection fraction is 60 %. No evidence for diastolic dysfunction. The left atrium is mildly enlarged. Ordering Physician: Louise Car Referring Physician: Giovany Damon M.D. Performed By: Patsy Roa RDCS and Student
--- NOTE | 2024-01-09 14:35 | PN_ITS ---
Subjective Subjective Patient seen and examined. Her was by her bedside. She had no active complaints. Still admitted to having the weakness in her left upper extremity. She is not able to fully lift it. The numbness and tingling in her fingers have resolved. She still does complain of some mild swelling in her left upper extremity fingers. Review of systems otherwise negative. Objective Data Objective Data Vital Signs: Vital Signs Temp Pulse Resp BP Pulse Ox O2 Del Method 97.3 F L 71 18 141/83 H 96 Room Air 01/09/24 12:25 01/09/24 12:25 01/09/24 12:25 01/09/24 12:25 01/09/24 12:25 01/09/24 12:25 Oxygen Delivery Method Room Air Weight: 130 lb 15.273 oz Body Mass Index (BMI) 23.1 Intake & Output: Intake and Output for Last 24 Hours 01/07/24 01/08/24 01/09/24 23:59 23:59 23:59 Intake Total 1000 / 2010 196.7598 / 513.3333 Balance 1000 / 3222 640.6837 / 513.3333 Lab / Micro Data 01/09/24 05:14 01/09/24 05:14 Labs: Laboratory Results - last 24 hr 01/08/24 15:35: WBC 7.7, RBC 3.26 L, Hgb 10.2 L, Hct 32.1 L, MCV 98.5, MCH 31.3, MCHC 31.8 L, RDW Std Deviation 50.6 H, RDW Coeff of David 14.0, Plt Count 221, MPV 9.3, Immature Gran % (Auto) 0.400, Neut % (Auto) 76.7 H, Lymph % (Auto) 13.7 L, [place] % (Auto) 8.2, Eos % (Auto) 0.6, Baso % (Auto) 0.4, Absolute Neuts (auto) 5.9, Absolute Lymphs (auto) 1.06, Nucleated RBC % 0, PT 15.0 H, INR 1.2, APTT 32.1, Sodium 137, Potassium 2.8 L, Chloride 97 L, Carbon Dioxide 34.0 H, Anion Gap 6, BUN 16, Creatinine 3.55 H, Estim Creat Clear Calc 12.55, Est GFR (MDRD) Af Amer 16 L, Est GFR (MDRD) Non-Af 14 L, BUN/Creatinine Ratio 4.5 L, Glucose 141 H, Uric Acid 2.7, Calcium 8.7, Total Bilirubin 0.60, AST 11 L, ALT < 6 L, Alkaline Phosphatase 62, Troponin I High Sens 8, Total Protein 7.8, Albumin 2.4 L, Globulin 5.4 H, Albumin/Globulin Ratio 0.4 L 01/08/24 16:11: Urine Color Yellow, Urine Clarity Cloudy, Urine pH 8.0, Ur Specific [place] 1.015, Urine Protein 100 H, Urine Glucose (UA) Normal, Urine Ketones Negative, Urine Occult Blood 10 H, Urine Nitrite Negative, Urine Bilirubin Negative, Urine Urobilinogen Normal, Ur Leukocyte Esterase 500 H, Urine RBC 0-5 SEEN, Urine WBC 10-25 SEEN, Ur Squamous Epith Cells 0-5 SEEN, Urine Bacteria 2+, Urine Mucus 0 SEEN 01/09/24 05:14: WBC 7.4, RBC 2.99 L, Hgb 9.4 L, Hct 30.3 L, MCV 101.3 H, MCH 31.4, MCHC 31.0 L, RDW Std Deviation 53.1 H, RDW Coeff of David 14.2, Plt Count 234, MPV 9.7, Immature Gran % (Auto) 0.500, Neut % (Auto) 66.2, Lymph % (Auto) 21.5, [place] % (Auto) 10.5 H, Eos % (Auto) 0.9, Baso % (Auto) 0.4, Absolute Neuts (auto) 4.9, Absolute Lymphs (auto) 1.59, Nucleated RBC % 0, Sodium 139, Potassium 4.3, Chloride 106, Carbon Dioxide 24.0, Anion Gap 8, BUN 21 H, C reatinine 4.36 H, Estim Creat Clear Calc 10.22, Est GFR (MDRD) Af Amer 13 L, Est GFR (MDRD) Non-Af 11 L, BUN/Creatinine Ratio 4.8 L, Glucose 87, Calcium 8.6, Triglycerides 76, Cholesterol 212 H, LDL Cholesterol 154 H, VLDL Cholesterol 15, HDL Cholesterol 43 Radiography Diagnostic Testing: Radiology Impression Chest X-Ray 01/08/24 16:24 IMPRESSION: Minor subsegmental atelectasis left lower lobe. Electronically Signed: Candido Mack MD at 16:51 EDT , Elbow X-Ray 01/08/24 16:24 IMPRESSION: Postsurgical changes. No acute fracture or other significant bony pathology. Electronically Signed: Candido Mack MD at 16:46 EDT , Shoulder X-Ray 01/08/24 16:24 IMPRESSION: Mild degenerative change. No acute fracture or dislocation Electronically Signed: Candido Mack MD at 16:49 EDT , Upper Extremity CTA 01/08/24 16:53 IMPRESSION: Intact arterial supply to the left upper extremity. Associated fistula appears intact. Soft tissue edema/contusion/cellulitis lateral to the proximal ulna. Electronically Signed: Nas Cannon MD at 18:55 EDT , Brain CT 01/08/24 17:21 IMPRESSION: Mild atrophy and periventricular white matter ischemic changes. No evidence for acute bleed There is moderate to advanced atherosclerotic disease for stated age. If concern for acute infarct MRI/MRA recommended Electronically Signed: Candido Mack MD at 18:21 EDT , Neck MRA 01/08/24 19:57 IMPRESSION: Normal bilateral cervical carotid and vertebral arteries. Electronically Signed: Yasir Mayo MD at 11:23 EDT , Brain MRI 01/09/24 05:55 IMPRESSION: 1. Acute lacunar ischemic infarct in the left frontal operculum. This is suspicious pericardium body can origin since the MRA head and neck are negative. 2. Chronic white matter ischemic changes in both cerebral hemispheres. Electronically Signed: Yasir Mayo MD at 12:05 EDT , ADDENDUM: 01/09/24 1217 IMPRESSION: 1. Acute lacunar ischemic infarct in the left frontal operculum. This is suspicious pericardium body can origin since the MRA head and neck are negative. 2. Chronic white matter ischemic changes in both cerebral hemispheres. N.B. : The above Results were Read Back by Yasir Mayo MD to Sera Presley RN, and understanding confirmed on 01/09/2024 12:10:18 (ET). Electronically Signed: Yasir Mayo MD at 12:05 EDT , Head MRA 01/09/24 19:57 IMPRESSION: Normal MRA of the head Electronically Signed: Yasir Mayo MD at 11:25 EDT , Physical Exam Const alert, oriented x3, no apparent distress and well nourished General Appearance: cooperative HEENT normocephalic, head/scalp atraumatic and moist oral mucous membranes Eyes PERRL and EOMs intact bilaterally Neck no lymphadenopathy and supple Lymph Lymphatic: no lymphadenopathy noted and no lymphedema noted Resp normal respiratory effort, normal air movement and clear to auscultation bilaterally Cardio regular rate, regular rhythm, S1 normal heart sound, S2 normal heart sound and no murmurs GI normal to inspection, nondistended, normoactive bowel sounds, soft to palpation, non-tender and non-distended Extremity normal capillary refill Extremity Narrative: mild swelling of LUE fingers. No tenderness, numbness or tingling. Skin Skin Narrative: well healed incision scar at site of AV fistula on LUE inner arm. Dialysis catheter in situ in upper chest. Neuro CN's II-XII intact bilaterally Neuro Narrative: power of LUE is 4-/5. Motor Exam: general weakness Psych thought process normal, cooperative and affect normal Appearance: appropriate Assessment & Plan Assessment/Plan (1) Arm pain, left: (2) Left arm weakness: (3) Lacunar stroke: PLAN: Plan #LUE weakness due to acute lacunar infarct * Patient had a left upper extremity AV fistula placed about a week ago. Subsequently noted that she had weakness and tingling in her left upper extremity. * Though symptoms have improved now. CT of the head showed no acute intracranial pathology. * MRI of the brain today showed an acute lacunar ischemic infarct in the left frontal PACU lung and chronic white matter ischemic changes in both cerebral hemispheres. * 2D echo ordered * monitor NIHSS * consult teleneurology service * PO aspirin 81mg daily and PO plavix 75mg daily. High intensity statin * PT/OT On board. Fall precautions * head and neck MRA showed no hemodynamically significant stenosis. * #ESRD * On dialysis Wednesdays and Fridays. Had dialysis yesterday. Had left upper extremity AV fistula inserted last week. She had CTA of left upper extremity done which showed adequate flow in the fistula site and showed intact arterial supply to the LUE and associated fistula appeared intact; soft tissue edema, contusion and cellulitis lateral to the proximal ulna * nephrology on outpatient basis. * #Hypertension: on carvedilol. Will hold BP meds to allow for permissive hypertension as per stroke protocol. #UTI: urinalysis showed 2+ bacteria. Will get urine cultures and start on IV ceftriaxone. #Restless leg syndrome: on pramipexole. DVT prophylaxis: Will order SCDs. Charges/Coding Visit Charges Inpatient E&M: 18304 Subs Hosp L2
[2024-01-09] MEDS: Aspirin 81 MG TAB.CHEW PO (16:01)
[2024-01-09] MEDS: Clopidogrel Bisulfate 75 MG Tablet PO (16:01)
[2024-01-09] MEDS: Acetaminophen 325 MG Tablet 650 MG PO ×2 (16:23→21:07)
[2024-01-09] MEDS: Ceftriaxone 1 GM/50 ML BAG IV (16:23)
--- NOTE | 2024-01-09 19:57 | MRI_ITS ---
STUDY: MRA OF THE HEAD WITHOUT CONTRAST REASON FOR EXAM: Female, 68 years old. Stroke, LT ARM PAIN WEAKNESS, LT ARM FISTULA PLACED 1 WEEK, BRAIN AND NECK MRA DONE WELL TECHNIQUE: 3-D irvr-pr-oelany (TOF) imaging was performed with MIPs. The study was performed unenhanced. COMPARISON: None. FINDINGS: Normal bilateral petrous carotid arteries. Normal right cavernous carotid artery with a normal supraclinoid bifurcation. Normal left cavernous carotid artery with a normal supraclinoid bifurcation. Normal right A1 segment of the anterior cerebral artery. Normal left A1 segment of the anterior cerebral artery. Normal intact anterior communicating artery (ACOM). Normal bilateral A2 segments of the anterior cerebral arteries. Normal right M1 and M2 segments of the middle cerebral arteries, with a normal M1 bifurcation. Normal left M1 and M2 segments of the middle cerebral arteries, with a normal M1 bifurcation. No visible right posterior communicating artery (PCOM). No visible left posterior communicating artery (PCOM). Normal bilateral vertebral arteries. Normal basilar artery with a normal basilar bifurcation. The visualized bilateral superior cerebellar (SCA) arteries are normal. Normal bilateral P1, P2 and visualized P3 segments of the posterior cerebral arteries. There is no demonstrated aneurysm of the [place]. There is no major vessel occlusion or hemodynamically significant stenosis. MRI/MRA Head ONLY without Contrast IMPRESSION: Normal MRA of the head Electronically Signed: Yasir Mayo MD at 11:25 EDT ,
[2024-01-09] MEDS: Pramipexole Di-HCl 0.25 MG Tablet PO (21:04)
[2024-01-09] MEDS: Carvedilol 25 MG Tablet PO (21:05)
[2024-01-09] MEDS: Atorvastatin Calcium 40 MG Tablet PO (21:07)
[2024-01-10] VITALS (14 sets, daily range): BP systolic 136–209; BP diastolic 58–105; PULSE 66–76; RESP 14–18; TEMP 36.6–37; O2SAT 97–100; BMI 23.2; BMI 22.7
[2024-01-10 06:50] LABS: Basophil# 0.05 X10^3/uL; Basophil% 0.7 % (0-1); Eosinophil# 0.16 X10^3/uL; Eosinophils% 2.2 % (0-5); Hematocrit 29.6 % (37-47); Hemoglobin 9.1 g/dL (12.0-15.0); Lymphocyte % 31.8 % (19-41); Mean Corp Hgb Conc 30.7 g/dL (32-36); Mean Corpuscular Hgb 30.8 pg (27.0-32.0); Mean Corpuscular Volume 100.3 fL (81-99); Mean Platelet Vol. 9.5 fl (6.2-12.0); Monocyte# 0.66 X10^3/uL; Monocyte% 9.1 % (0-10); NRBC Flagged by Analyzer 0 % (0-5); Neutrophil # 4.02 X10^3/uL (2.7-7.7); Neutrophil % 55.5 % (47-70); Platelet Count 225 K/mm3 (150-450); RBC Distribution Width CV 14.3 % (11.6-14.6); RBC Distribution Width SD 52.3 fl (35.1-43.9); Red Blood Count 2.95 M/mm3 (4.2-5.4); White Blood Count 7.2 K/mm3 (4.4-11.0)
[2024-01-10 07:51] LABS: Anion Gap 9 (5-15); BUN 30 mg/dL (7-18); BUN/Creat Ratio 5.3 RATIO (10-20); Calcium,Total 9.5 mg/dL (8.5-10.1); Chloride 108 mmol/L (98-107); Creatinine, Serum 5.64 mg/dL (0.55-1.02); EST Glomerular Filtration Rate 8 mL/min (>60); Est Glom Filt Rate - Afr Amer 10 mL/min (>60); Glucose 85 mg/dL (74-106); Potassium 4.3 mmol/L (3.5-5.1); Sodium Level 139 mmol/L (136-145)
--- NOTE | 2024-01-10 08:21 | CON.PCM.RE_ITS ---
Assessment & Plan Assessment/Plan (1) ESRD (end stage renal disease) on dialysis: PLAN: dialysis today with dialysis catheter s/p AVF placement 01/02/24 with mild swelling +thrill and bruit. DW primary service (2) Lacunar stroke: PLAN: left upper arm weakness, neuro consult pending (3) Gout: PLAN: uric acid 7, start low dose allopurinol (4) Hypertension: PLAN: resume BP meds (5) Anemia in chronic kidney disease: PLAN: RUPAL as needed (6) Hypercalcemia: PLAN: hx partial parathyroidectomy, dermoid cyst in ovary. Calcium stable HPI Consult Data Date of Consult: 01/10/24 HPI Narrative Reason for Consultation: ESRD HD MWF HPI Narrative: ARY ZARTAE, is a 68 F who presents with left arm and pain with swelling. Underwent AVF placement on 01/02/24. She has ESRD due to hypertension on dialysis MWF with RIJ tunneled catheter. Last dialysis was Monday at [facility]. Evaluation of AVF with good thrill and bruit. No clots on CTA. She is evaluated for possible stroke with complaints of left upper arm weakness, unable to raise arm. She is able to lift left arm. Neurology evaluation pending. Family at bedside. She complains of gout all over in knees, fingers, thought she had a blood clot in her thumb, neck. Uric acid level was 7.0. She has a history of hypercalcemia s/p subtotal parathyroidectomy. Hx dermoid cyst of ovary. [facility] Medical History (Updated 01/10/24 @ 09:[address] Suze Gomez, DO) Wears dentures Wears glasses Gout History of renal dialysis Low iron History of hiatal hernia Non-smoker History of edema Hypercalcemia HTN (hypertension) Home Medications ?Medication ?Instructions ?Recorded ?Last Taken ?Type omega-3 fatty acids 1,000 mg 1,000 mg PO DAILY 10/28/19 01/01/24 History capsule multivitamin (Daily Multi-Vitamin 1 tab PO DAILY 10/19/23 01/01/24 History tablet) carvedilol 25 mg tablet 25 mg PO DAILY 01/08/24 01/07/24 History pramipexole 0.25 mg tablet 0.25 mg PO QHS 01/09/24 Unknown History Allergy/AdvReac Type Severity Reaction Status Date / Time No Known Allergies Allergy Verified 01/08/24 21:25 Family History Grandmother Cancer Mother Heart disease Father Hypertension Sister Kidney calculi Surgical History History of parathyroid surgery History of AAA (abdominal aortic aneurysm) repair History of appendectomy Status post surgical removal of both fallopian tubes History of removal of both ovaries Social History Smoking Status: Never smoker alcohol intake: never substance use type: does not use ROS Constitutional Constitutional: Reports weakness Eyes Eyes: Denies loss of vision Cardiovascular Cardiovascular: Denies chest pain or syncope Respiratory/Chest Respiratory/Chest: Denies dyspnea on exertion Gastrointestinal Gastrointestinal: Denies anorexia, diarrhea or nausea Genitourinary Genitourinary: Denies dysuria Musculoskeletal Musculoskeletal: Reports other Details: gout in knees, neck, fingers Neurologic Neurologic: Reports weakness and other Details: focal weakness LUE ; Denies confusion Psychiatric Psychiatric: Denies confusion Hematologic/Lymphatic Hematologic/Lymphatic: Reports anemia Physical Exam Const alert, oriented x3 and no apparent distress Constitutional Narrative: short statured, Resp clear to auscultation bilaterally Cardio regular rate GI non-tender and non-distended Auscultation: normoactive bowel sounds Back/Spine Back/Spine Narrative: weakness LUE Extremity Extremity Narrative: mild swelling left upper arm over access placement +thrill and bruit. Degenerative charges in DIP and PIP joints bilateral hands General Extremity: AV fistula Psych cooperative Lab / Micro Data 01/10/24 05:57 01/10/24 05:57 Labs: Laboratory Results - last 24 hr 01/10/24 05:57: WBC 7.2, RBC 2.95 L, Hgb 9.1 L, Hct 29.6 L, MCV 100.3 H, MCH 30.8, MCHC 30.7 L, RDW Std Deviation 52.3 H, RDW Coeff of David 14.3, Plt Count 225, MPV 9.5, Immature Gran % (Auto) 0.700, Neut % (Auto) 55.5, Lymph % (Auto) 31.8, [place] % (Auto) 9.1, Eos % (Auto) 2.2, Baso % (Auto) 0.7, Absolute Neuts (auto) 4.0, Absolute Lymphs (auto) 2.30, Nucleated RBC % 0, Sodium 139, Potassium 4.3, Chloride 108 H, Carbon Dioxide 22.0, Anion Gap 9, BUN 30 H, C reatinine 5.64 H, Estim Creat Clear Calc 7.90, Est GFR (MDRD) Af Amer 10 L, Est GFR (MDRD) Non-Af 8 L, BUN/Creatinine Ratio 5.3 L, Glucose 85, Calcium 9.5 Imaging Radiology Impression Neck MRA 01/08/24 19:57 IMPRESSION: Normal bilateral cervical carotid and vertebral arteries. Electronically Signed: Yasir Mayo MD at 11:23 EDT , Brain MRI 01/09/24 05:55 IMPRESSION: 1. Acute lacunar ischemic infarct in the left frontal operculum. This is suspicious pericardium body can origin since the MRA head and neck are negative. 2. Chronic white matter ischemic changes in both cerebral hemispheres. Electronically Signed: Yasir Mayo MD at 12:05 EDT , ADDENDUM: 01/09/24 1217 IMPRESSION: 1. Acute lacunar ischemic infarct in the left frontal operculum. This is suspicious pericardium body can origin since the MRA head and neck are negative. 2. Chronic white matter ischemic changes in both cerebral hemispheres. N.B. : The above Results were Read Back by Yasir Mayo MD to Sera Presley RN, and understanding confirmed on 01/09/2024 12:10:18 (ET). Electronically Signed: Yasir Mayo MD at 12:05 EDT , Head MRA 01/09/24 19:57 IMPRESSION: Normal MRA of the head Electronically Signed: aYsir Mayo MD at 11:25 EDT ,
[2024-01-10] MEDS: Multivitamins,Therapeutic Tablet 1 TABLET PO (08:22)
[2024-01-10] MEDS: Aspirin 81 MG TAB.CHEW PO (08:22)
[2024-01-10] MEDS: Clopidogrel Bisulfate 75 MG Tablet PO (08:23)
[2024-01-10] MEDS: 0.9% Saline Lock 10 ML Syringe IV ×2 (08:58→12:39)
[2024-01-10] MEDS: Ceftriaxone 1 GM/50 ML BAG IV (09:00)
--- NOTE | 2024-01-10 10:10 | CASEMGMT ---
SW completed a PHQ 9 with patient as she had a Stroke. Patient scored a 0 which indicates no depression. Patient denied need for counseling resources. Ju BANKS
[2024-01-10 10:46] LABS: Phosphorus 8.2 mg/dL (2.5-4.9)
--- NOTE | 2024-01-10 12:07 | STROKE.CONS ---
Assessment and Plan: Stroke Assessment/Plan ARY ZARATE is a 68 year old right handed female with history of ESRD on dialysis (via catheter), HTN, Gout who presents with left arm pain and weakness onset Monday01/05/24 while at dialysis. MRI brain shows small bilateral MCA infarcts. MRA head/neck negative. Neurological examination shows nonfocal exam, NIHSS-0. ASSESSMENT/PLAN: Acute bilateral MCA ischemic stroke 1) Recommend PUNEET and EM. 2) Continue anti-platelet medication and vascular risk factor modification. On lipitor. 3) Follow-up in outpatient neurology clinic. Messaged primary team recommendations, who note that patient reported she wanted to leave today. If patient elects to leave, recommend PUNEET and EM as outpatient and follow-up in neurology clinic. HPI Consult Data Date of Consult: 01/10/24 HPI Narrative HPI Narrative: ARY ZARATE, is a 68 year old right handed female with history of ESRD on dialysis (via catheter), HTN, Gout who presents with left arm pain and weaknes, onset Monday01/05/24 while at dialysis. Pain is in the upper arm near the shoulder. She had a fistula placed in her left arm about 1 week ago and it is not ready to use. She presented to [place] [facility] on 01/09/2024 and was admitted. CTA UE showed intact fistula. MRI brain DWI shows small acute infarct in right temporal lobe and left frontal lobe. MRA head/neck negative. LDL 154. She reports her arm feels better today, but still sluggish. Patient is on Asa/plavix/lipitor 40. TTE was done this AM [facility] Medical History (Updated 01/10/24 @ 09:[address] Suze Gomez, DO) Wears dentures Wears glasses Gout History of renal dialysis Low iron History of hiatal hernia Non-smoker History of edema Hypercalcemia HTN (hypertension) Home Medications ?Medication ?Instructions ?Recorded ?Last Taken ?Type omega-3 fatty acids 1,000 mg 1,000 mg PO DAILY 10/28/19 01/01/24 History capsule multivitamin (Daily Multi-Vitamin 1 tab PO DAILY 10/19/23 01/01/24 History tablet) carvedilol 25 mg tablet 25 mg PO DAILY 01/08/24 01/07/24 History pramipexole 0.25 mg tablet 0.25 mg PO QHS 01/09/24 Unknown History Allergy/AdvReac Type Severity Reaction Status Date / Time No Known Allergies Allergy Verified 01/08/24 21:25 Family History Grandmother Cancer Mother Heart disease Father Hypertension Sister Kidney calculi Surgical History History of parathyroid surgery History of AAA (abdominal aortic aneurysm) repair History of appendectomy Status post surgical removal of both fallopian tubes History of removal of both ovaries Social History Smoking Status: Never smoker alcohol intake: never substance use type: does not use Vital Signs Vital Signs Vital Signs: 01/09/24 12:25 01/09/24 16:25 01/09/24 20:25 Temperature 97.3 F L 97.4 F L 98.2 F Temperature Source Temporal Temporal Oral Pulse Rate 71 70 76 Pulse Strength Respiratory Rate 18 18 16 Respiratory Effort Respiratory Depth Respiratory Pattern Blood Pressure 141/83 H 140/76 H 149/81 H Blood Pressure Mean 102 97 103 Blood Pressure Source Monitor Monitor Monitor Blood Pressure Position Sitting Sitting Semi-Fowlers Blood Pressure Location Right Arm Right Arm Right Arm Pulse Ox 96 96 97 Oxygen Delivery Method Room Air Room Air Room Air 01/09/24 20:45 01/09/24 22:00 01/10/24 00:00 Temperature 98.2 F 97.9 F Temperature Source Oral Oral Pulse Rate 76 76 Pulse Strength Respiratory Rate 16 16 Respiratory Effort Normal Respiratory Depth Normal Respiratory Pattern Normal Blood Pressure 149/81 H 136/78 H Blood Pressure Mean 103 97 Blood Pressure Source Monitor Monitor Blood Pressure Position Semi-Fowlers Semi-Fowlers Blood Pressure Location Right Arm Right Arm Pulse Ox 97 97 Oxygen Delivery Method Room Air Room Air Room Air 01/10/24 04:00 01/10/24 04:00 01/10/24 08:00 Temperature 98.2 F 98.6 F Temperature Source Oral Oral Pulse Rate 74 76 Pulse Strength Respiratory Rate 16 18 Respiratory Effort Normal Respiratory Depth Normal Respiratory Pattern Normal Blood Pressure 160/82 H 183/100 H Blood Pressure Mean 108 127 Blood Pressure Source Monitor Monitor Blood Pressure Position Semi-Fowlers Sitting Blood Pressure Location Right Forearm Right Arm Pulse Ox 97 98 Oxygen Delivery Method Room Air Room Air Room Air 01/10/24 08:13 01/10/24 10:00 Temperature Temperature Source Pulse Rate Pulse Strength Normal (2+) Respiratory Rate Respiratory Effort Normal Non-Labored Respiratory Depth Normal Respiratory Pattern Normal Blood Pressure Blood Pressure Mean Blood Pressure Source Blood Pressure Position Blood Pressure Location Pulse Ox Oxygen Delivery Method Room Air Weight Weight: 59.4 kg Body Mass Index (BMI) 23.1 NIHSS NIHSS Nursing Documentation NIHSS Nursing Documentation: NIHSS: Ischemic Stroke/TIA Start: 01/08/24 20:44 Text: For PCU Patients: NIH and Neuro Check every 4 Status: Active hours, PRN and with change in RN caregiver. Freq: [id number] Protocol: Activity Type Activity Date Activity User E-sign Co-sign Detail Recorded Client Recorded Date Recorded By Document 01/10/24 08:03 [id number] 01/10/24 08:07 HS 01/10/24 08:03 NIH Stroke Scale [NIHSS] A score of 0 is normal or asymptomatic . Total possible score is 42. Inpatient: RN or Physician to activate a stroke alert for onset of new stroke symptoms or with NIHSS increase >/= 3 points. Following change in neurological status, NIHSS will be performed per physician order or more frequently PRN. -1a. Level of Consciousness Alert; keenly responsive -1b. LOC Questions Answers BOTH questions correctly. -1c. LOC Commands Performs both tasks correctly . -2. Best Gaze Normal -3. Visual No visual loss -4. Facial Palsy Normal symmetrical movements -5a. Left Arm No drift; arm holds 90 (or 45 ) degrees for full 10 seconds -5b. Right Arm No drift; arm holds 90 (or 45 ) degrees for full 10 seconds -6a. Left Leg No drift; leg holds 30-degree position for full 5 seconds -6b. Right Leg No drift; leg holds 30-degree position for full 5 seconds -7. Limb Ataxia Present in 1 limb -8. Sensory Normal; no sensory loss -9. Best Language No aphasia; normal -10. Dysarthria Normal -11. Extinction and Inattention No abnormality -Total 1 Query Text:A score of 0 is normal or asymptomatic. Total possible score is 42 . ED: Notify Physician for NIHSS increase by > / = 3 points. Inpatient: RN or Physician to activate a stroke alert for NIHSS increase of > / = 3 points. Coma Scale [Assess] -Eye Opening Spontaneous -Motor Obeys Commands -Verbal Oriented [Total] -Coma Scale Total 15 NIHSS 1a. Level of Consciousness: Alert; keenly responsive 1b. LOC Questions: Answers BOTH questions correctly. 2. Best Gaze: Normal 3. Visual: No visual loss 4. Facial Palsy: Normal symmetrical movements 5a. Left Arm: No drift; arm holds 90 (or 45) degrees for full 10 seconds 5b. Right Arm: No drift; arm holds 90 (or 45) degrees for full 10 seconds 6a. Left Leg: No drift; leg holds 30-degree position for full 5 seconds 6b. Right Leg: No drift; leg holds 30-degree position for full 5 seconds 7. Limb Ataxia: Absent 8. Sensory: Normal; no sensory loss 9. Best Language: No aphasia; normal 10. Dysarthria: Normal 11. Extinction and Inattention: No abnormality Total: 0 Physical Exam Neuro Neuro Narrative: Neurological examination: General: The patient appears nutritionally appropriate, well-groomed, and appears comfortable in no acute distress. Mental Status: The patient?s mental status was normal including orientation. Cranial nerves: No visual complaints, extra-ocular motion was intact. Face motion symmetric. Bilateral shoulder shrug was intact. Tongue was midline with normal movement. There was no dysarthria. Motor: Normal strength in all four extremities. No pronator drift. Sensation: Intact light touch bilaterally, no extinction. Coordination: Bilateral finger to nose was normal. There was no dysmetria. Gait: Deferred. Lab / Micro Data 01/10/24 05:57 01/10/24 05:57 Labs: Laboratory Results - last 24 hr 01/10/24 05:57: WBC 7.2, RBC 2.95 L, Hgb 9.1 L, Hct 29.6 L, MCV 100.3 H, MCH 30.8, MCHC 30.7 L, RDW Std Deviation 52.3 H, RDW Coeff of David 14.3, Plt Count 225, MPV 9.5, Immature Gran % (Auto) 0.700, Neut % (Auto) 55.5, Lymph % (Auto) 31.8, [place] % (Auto) 9.1, Eos % (Auto) 2.2, Baso % (Auto) 0.7, Absolute Neuts (auto) 4.0, Absolute Lymphs (auto) 2.30, Nucleated RBC % 0, Sodium 139, Potassium 4.3, Chloride 108 H, Carbon Dioxide 22.0, Anion Gap 9, BUN 30 H, Creatinine 5.64 H, Estim Creat Clear Calc 7.90, Est GFR (MDRD) Af Amer 10 L, Est GFR (MDRD) Non-Af 8 L, BUN/Creatinine Ratio 5.3 L, Glucose 85, Calcium 9.5, Phosphorus 8.2 H Micro: Microbiology 01/08/24 16:11 Urine, Clean Catch Urine Culture - Preliminary GNR 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 Deep veins of the left upper extremity are patent and compressible segmentally. There is no evidence of deep vein thrombosis. Ordering Physician: Jd Kaufman Referring Physician: Giovany Rosa Performed By: Jan Contreras, T ??? Brain MRI 01/09/24 05:55 IMPRESSION: 1. Acute lacunar ischemic infarct in the left frontal operculum. This is suspicious pericardium body can origin since the MRA head and neck are negative. 2. Chronic white matter ischemic changes in both cerebral hemispheres. Electronically Signed: Yasir Mayo MD at 12:05 EDT , ADDENDUM: 01/09/24 1217 IMPRESSION: 1. Acute lacunar ischemic infarct in the left frontal operculum. This is suspicious pericardium body can origin since the MRA head and neck are negative. 2. Chronic white matter ischemic changes in both cerebral hemispheres. N.B. : The above Results were Read Back by Yasir Mayo MD to Sera Presley RN, and understanding confirmed on 01/09/2024 12:10:18 (ET). Electronically Signed: Yasir Mayo MD at 12:05 EDT , Active Medications Active Medications Active Medications: Current Medications Generic Name Dose Route Start Last Admin Trade Name Freq PRN Reason Stop Dose Admin Acetaminophen 650 mg 01/09/24 16:06 01/09/24 21:07 Acetaminophen 325 Mg Tablet PO 650 mg Q6H PRN PRN Administration Pain 1-10 or Fever Aspirin 81 mg 01/09/24 16:00 01/10/24 08:22 Aspirin 81 Mg Tab.Chew PO 81 mg BREAKFAST ELOY Administration Atorvastatin Calcium 40 mg 01/09/24 22:00 01/09/24 21:07 Atorvastatin Calcium 40 Mg Tablet PO 40 mg QHS ELOY Administration Carvedilol 25 mg 01/09/24 22:00 01/09/24 21:05 Carvedilol 25 Mg Tablet PO 25 mg QHS [facility] Administration Protocol Clopidogrel Bisulfate 75 mg 01/09/24 16:00 01/10/24 08:23 Clopidogrel Bisulfate 75 Mg Tablet PO 75 mg DAILY ELOY Administration Hemodialysis Solution 6 bag 01/10/24 11:40 Pureflow B 3k Dialysis Soln 1 Bag PF 01/10/24 23:20 UD [facility] Protocol Heparin Sodium (Porcine) 1,000 - 3,000 units 01/10/24 11:40 Heparin 10,000 Units/10 Ml Vial IV 01/10/24 23:20 X1 PRN HD catheter closing Ceftriaxone Sodium 1 gm in 50 mls @ 100 mls/hr 01/09/24 15:05 01/10/24 09:30 Rocephin IV Infused Q24 [facility] Infusion Multivit/Ca Carb/B Cmplx/FA/Prenat 1 cap 01/10/24 10:00 Folic Acid/Vitamin B Comp W-C 1 Capsule PO DAILY [facility] Pramipexole Dihydrochloride 0.25 mg 01/08/24 22:00 01/09/24 21:04 Pramipexole Di-Hcl 0.25 Mg Tablet PO 0.25 mg QHS [facility] Administration Sevelamer Carbonate 800 mg 01/10/24 12:00 Sevelamer Carbonate 800 Mg Tablet PO TIDCM ELOY Sodium Chloride 10 - 40 ml 01/08/24 20:52 01/10/24 08:58 0.9% Saline Lock 10 Ml Syringe IV 10 ml UD PRN Administration SALINE FLUSH Sodium Chloride 1,000 ml 01/10/24 11:20 0.9% Normal Saline 1,000 Ml Iv.Soln. OPERA.SITE 01/10/24 23:17 X1 ELOY Sodium Chloride 200 ml 01/10/24 11:17 0.9% Normal Saline 1,000 Ml Iv.Soln. IV 01/10/24 23:17 X1 PRN to maintain SBP >90mmHg during Dialysis
--- NOTE | 2024-01-10 12:24 | DS.PCM_ITS ---
Providers Date of Admission: 01/09/24 Date of Discharge: 01/10/24 Primary Care Physician: Dr. Giovany Damon MD Consultations 01/09/24 12:17 Neurology [Consult: Tele-Neurology] Routine Consulting Provider: [facility] Reason for Consult: acute lacunar ischemic infarct EMERGENT Consult: No Notified: Yes Date Notified: 01/09/24 Time Notified: 12:41 Method of Notification: Answering Service Nursing Unit Staff Notify [facility] of Tele-Neurology Consult: Yes 01/09/24 15:56 Consult: Nephrology Routine Consulting Provider: Suze Gomez Reason for Consult: dialysis EMERGENT Consult: No Notified: Yes Date Notified: 01/09/24 Time Notified: 15:56 Method of Notification: Text Reason For Visit: LEFT UPPER EXTREMITY WEAKNESS AND PAIN Diagnosis Discharge Diagnosis (1) ESRD (end stage renal disease) on dialysis: Status: Acute Code(s): N18.6 - End stage renal disease; Z99.2 - Dependence on renal dialysis (2) Lacunar stroke: Status: Acute Code(s): I63.81 - Other cerebral infarction due to occlusion or stenosis of small artery (3) Gout: Status: Acute Code(s): M10.9 - Gout, unspecified (4) Hypertension: Status: Chronic Code(s): I10 - Essential (primary) hypertension (5) Anemia in chronic kidney disease: Status: Chronic Code(s): N18.9 - Chronic kidney disease, unspecified; D63.1 - Anemia in chronic kidney disease (6) Hypercalcemia: Status: Chronic Code(s): E83.52 - Hypercalcemia Plan #LUE weakness due to acute lacunar infarct * Patient had a left upper extremity AV fistula placed about a week ago. Subsequently noted that she had weakness and tingling in her left upper extremity. * Though symptoms have improved now. CT of the head showed no acute intracranial pathology. * MRI of the brain today showed an acute lacunar ischemic infarct in the left frontal PACU lung and chronic white matter ischemic changes in both cerebral hemispheres. * 2D echo ordered * monitor NIHSS * consult teleneurology service * PO aspirin 81mg daily and PO plavix 75mg daily. High intensity statin * PT/OT On board. Fall precautions * head and neck MRA showed no hemodynamically significant stenosis. * #ESRD * On dialysis Wednesdays and Fridays. Had dialysis yesterday. Had left upper extremity AV fistula inserted last week. She had CTA of left upper extremity done which showed adequate flow in the fistula site and showed intact arterial supply to the LUE and associated fistula appeared intact; soft tissue edema, contusion and cellulitis lateral to the proximal ulna * nephrology on outpatient basis. * #Hypertension: on carvedilol. Will hold BP meds to allow for permissive hypertension as per stroke protocol.
--- NOTE | 2024-01-10 12:24 | PN.NEURO_ITS ---
Objective Data Objective Data Vital Signs: Vital Signs Temp Pulse Resp BP Pulse Ox O2 Del Method 98.5 F 70 14 168/85 H 100 Room Air 01/10/24 12:00 01/10/24 12:16 01/10/24 12:16 01/10/24 12:16 01/10/24 12:16 01/10/24 12:16 Oxygen Delivery Method Room Air Weight: 59.4 kg Body Mass Index (BMI) 23.2 Intake & Output: Intake and Output for Last 24 Hours 01/08/24 01/09/24 01/10/24 23:59 23:59 23:59 Intake Total 1000 / 1057 308.6285 / 803.3333 530 / 530 Balance 1000 / 2566 257.9816 / 803.3333 530 / 530 Lab / Micro Data 01/10/24 05:57 01/10/24 05:57 Labs: Laboratory Results - last 24 hr 01/10/24 05:57: WBC 7.2, RBC 2.95 L, Hgb 9.1 L, Hct 29.6 L, MCV 100.3 H, MCH 30.8, MCHC 30.7 L, RDW Std Deviation 52.3 H, RDW Coeff of David 14.3, Plt Count 225, MPV 9.5, Immature Gran % (Auto) 0.700, Neut % (Auto) 55.5, Lymph % (Auto) 31.8, [place] % (Auto) 9.1, Eos % (Auto) 2.2, Baso % (Auto) 0.7, Absolute Neuts (auto) 4.0, Absolute Lymphs (auto) 2.30, Nucleated RBC % 0, Sodium 139, Potassium 4.3, Chloride 108 H, Carbon Dioxide 22.0, Anion Gap 9, BUN 30 H, C reatinine 5.64 H, Estim Creat Clear Calc 7.90, Est GFR (MDRD) Af Amer 10 L, Est GFR (MDRD) Non-Af 8 L, BUN/Creatinine Ratio 5.3 L, Glucose 85, Calcium 9.5, P hosphorus 8.2 H Micro: Microbiology 01/08/24 16:11 Urine, Clean Catch Urine Culture - Preliminary GNR 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 Deep veins of the left upper extremity are patent and compressible segmentally. There is no evidence of deep vein thrombosis. Ordering Physician: Jd Kaufman Referring Physician: Giovany Rosa Performed By: Jan Contreras RVT ??? EEG Results Procedure Details EEG Procedure Details: ARY ZARATE is a 68 year old F with a past medical history of , who presents for evaluation of Electroencephalogram on DATE at TIME
--- NOTE | 2024-01-10 12:24 | PCM.DC ---
Discharge Instructions Diet Discharge Diet: Low fat / Low cholesterol Activity Discharge Activity: Return to Normal Activity Weight Bearing Status: Weight bearing as tolerated Dressing / Incision Call your doctor if you observe: Fever of 101 or Higher, Shortness of breath, Dizziness, Swelling in the ankles and Chest pain Follow Up Care Test Results: Test results from this visit will be discussed in further detail at your follow-up appointment, if applicable. Discharge Plan Admission Admit Date/Time: 01/09/24 16:02 Primary Reason for Your Visit: acute CVA Attending Provider: Louise Car Primary Care Provider: Giovany Damon Consulting Providers: Otis Zhao; Shashank Jacobo; Ama Lea; Rae Samaniego; Brook Murphy; Maira Aguero; Edis Le; Jessenia Bernard; Adan Mcmahan; Néstor Borjas; Zhang River; Missy Iyer; Oswaldo Smart; Kimberly Orlando; Casi Spangler; Darwin Chavez; Saqib Marsh; Severino Robles; Oscar Villalobos; Dominique Gomez; Jorge Elmore; Suze Gomez Instructions Patient Instructions: Discharge Instructions for Stroke Additional Instructions / Restrictions: see PCP for referral to cardiology for PUNEET. Discharge Orders/Prescriptions Prescriptions: New atorvastatin 40 mg Tablet 40 mg PO QHS Qty: 30 2RF aspirin 81 mg Tablet,Chewable 81 mg PO BREAKFAST Qty: 30 2RF cefdinir 300 mg capsule 300 mg PO BID Qty: 10 0RF clopidogrel [Plavix] 75 mg tablet 75 mg PO DAILY Qty: 21 0RF Continued omega-3 fatty acids 1,000 mg capsule 1,000 mg PO DAILY multivitamin [Daily Multi-Vitamin] Tablet 1 tab PO DAILY carvedilol 25 mg tablet 25 mg PO DAILY pramipexole 0.25 mg tablet 0.25 mg PO QHS Other Ambulatory Orders: 30 Day Event Recorder Preventi (Urgent) Timeframe: 1 Day Facility: [facility] - Location: Cardiovascular Services Ordered By: Dr. Louise Car Referrals / Follow Up: Fidencio Monroe MD [Non-Staff -Ordering Privileges] - Within 2 Weeks (see to establish care for stroke) Giovany Damon MD [Primary Care Provider] - Within 1 Week Disposition Disposition (needs filled in before D/C Order can be placed): Home, Self Care
--- NOTE | 2024-01-10 12:24 | PCM.DC.SUM ---
Providers Date of Admission: 01/09/24 Date of Discharge: 01/10/24 Primary Care Physician: Dr. Giovany Damon MD Consultations 01/09/24 12:17 Neurology [Consult: Tele-Neurology] Routine Consulting Provider: [facility] Reason for Consult: acute lacunar ischemic infarct EMERGENT Consult: No Notified: Yes Date Notified: 01/09/24 Time Notified: 12:41 Method of Notification: Answ[facility] Service Nursing Unit Staff Notify [facility] of Tele-Neurology Consult: Yes 01/09/24 15:56 Consult: Nephrology Routine Consulting Provider: Suze Gomez Reason for Consult: dialysis EMERGENT Consult: No Notified: Yes Date Notified: 01/09/24 Time Notified: 15:56 Method of Notification: Text Reason For Visit: LEFT UPPER EXTREMITY WEAKNESS AND PAIN Diagnosis Discharge Diagnosis (1) ESRD (end stage renal disease) on dialysis: Status: Acute Code(s): N18.6 - End stage renal disease; Z99.2 - Dependence on renal dialysis (2) Lacunar stroke: Status: Acute Code(s): I63.81 - Other cerebral infarction due to occlusion or stenosis of small artery (3) Gout: Status: Acute Code(s): M10.9 - Gout, unspecified (4) Hypertension: Status: Chronic Code(s): I10 - Essential (primary) hypertension (5) Anemia in chronic kidney disease: Status: Chronic Code(s): N18.9 - Chronic kidney disease, unspecified; D63.1 - Anemia in chronic kidney disease (6) Hypercalcemia: Status: Chronic Code(s): E83.52 - Hypercalcemia Plan #LUE weakness due to acute lacunar infarct Patient had a left upper extremity AV fistula placed about a week ago. Subsequently noted that she had weakness and tingling in her left upper extremity. Though symptoms have improved now. CT of the head showed no acute intracranial pathology. MRI of the brain today showed an acute lacunar ischemic infarct in the left frontal PACU lung and chronic white matter ischemic changes in both cerebral hemispheres. 2D echo ordered monitor NIHSS consult teleneurology service PO aspirin 81mg daily and PO plavix 75mg daily. High intensity statin PT/OT On board. Fall precautions head and neck MRA showed no hemodynamically significant stenosis. #ESRD On dialysis Wednesdays and Fridays. Had dialysis yesterday. Had left upper extremity AV fistula inserted last week. She had CTA of left upper extremity done which showed adequate flow in the fistula site and showed intact arterial supply to the LUE and associated fistula appeared intact; soft tissue edema, contusion and cellulitis lateral to the proximal ulna nephrology on outpatient basis. #Hypertension: on carvedilol. Will hold BP meds to allow for permissive hypertension as per stroke protocol. #UTI: urinalysis showed 2+ bacteria. Will get urine cultures and start on IV ceftriaxone. #Restless leg syndrome: on pramipexole. DVT prophylaxis: Will order SCDs. Medications at Discharge Home Medications omega-3 fatty acids 1,000 mg capsule 1,000 mg PO DAILY supplement 10/28/19 multivitamin (Daily Multi-Vitamin tablet) 1 tab PO DAILY vitamin 10/19/23 carvedilol 25 mg tablet 25 mg PO DAILY blood pressure 01/08/24 pramipexole 0.25 mg tablet 0.25 mg PO QHS restless legs 01/09/24 aspirin 81 mg chewable tablet 81 mg PO BREAKFAST #30 tabs 01/10/24 atorvastatin 40 mg tablet 40 mg PO QHS #30 tabs 01/10/24 cefdinir 300 mg capsule 300 mg PO BID #10 caps 01/10/24 clopidogrel 75 mg tablet (Plavix) 75 mg PO DAILY #21 tabs 01/10/24 Hospital Course Operations None Procedures 2-D Echocardiogram Summary of Care Provided Minutes Spent on Discharge: 55 Hospital Course: Patient is a 68-year-old female with a past medical history as outlined was admitted to the ED on 01/08/2024 with a complaint of left upper extremity pain and weakness. She had had a fistula placed in her left upper extremity for dialysis the week before admission and on the day of presentation she went to Dialysis and was noted to have a markedly painful left arm with associated weakness. She therefore came into the ED due to concerns about the been a problem with the fistula and also possible stroke. CT of the angiogram of the left upper extremity showed arterial blood flow was intact through the fistula to the distal extremity. She also said she had a history of gout so there was concern that her symptoms could be due to gout. On admission CT of the brain showed no acute intracranial pathology. She was admitted to be managed for possible stroke due to the weakness of her left upper extremity. She had MRI of the brain which showed an acute lacunar ischemic infarct in the left frontal lobe and chronic white matter ischemic changes in both cerebral hemispheres. Neurology she was consulted and patient had 2D echo which showed EF of 60% and no evidence of diastolic dysfunction with mildly enlarged left atrium. Neurology reviewed patient uncomfortable multiple small strokes bilaterally. Neurology therefore commended that patient have a PUNEET with a TTE was normal. I did discuss this with the digital marketing coordinator on-call Dr. Knowles who said he would go evaluate patient to see if there PUNEET was warranted but no plan of patient possibly having a done on outpatient basis though he thought it might not even be indicated for her to have it. She was started on aspirin and Plavix as well as high intensity statin. Per neurology she could go with p.o. aspirin 81 mg daily and p.o. Plavix 75 mg daily for dual antiplatelet therapy for 21 days and then to follow-up with only aspirin 81 mg daily. She was also to be on high intensity statin. She was also discharged with a 30-day event monitor results of which were to be sent to [facility] for interpretation. Dr. Knowles spoke extensively to patient about the PUNEET. Patient was not willing to have the PUNEET done in the hospital and preferred to follow-up on outpatient basis with her PCP and neurology to see if will be needed. Of note, urinalysis also showed evidence of UTI so she was started on IV ceftriaxone. Urine cultures grew gram-negative lactose youth coordinator with speciation pending. She was placed on p.o. cefdinir 300 mg twice daily for 5 days. Patient seen and examined prior to discharge. and daughters were at bedside she had no active complaints and had an uneventful night. Review of systems is otherwise negative. Physical Exam Const alert, oriented x3, no apparent distress and well nourished General Appearance: cooperative, comfortable and well developed HEENT normocephalic, head/scalp atraumatic, hearing grossly normal bilaterally and moist oral mucous membranes Eyes PERRL and EOMs intact bilaterally Neck no lymphadenopathy and supple Lymph Lymphatic: no lymphadenopathy noted and no lymphedema noted Resp normal respiratory effort, normal air movement and clear to auscultation bilaterally Cardio regular rate, regular rhythm, S1 normal heart sound, S2 normal heart sound and no murmurs GI normal to inspection, nondistended, normoactive bowel sounds, soft to palpation, non-tender and non-distended Extremity normal to inspection, full ROM, normal capillary refill and no clubbing, cyanosis or edema Skin Skin Narrative: well healed incision scar at site of AV fistula on LUE inner arm. Dialysis catheter in situ in upper chest. General Skin Exam: no breakdown Neuro CN's II-XII intact bilaterally Neuro Narrative: power of LUE is 4-/5. Speech: speech normal Motor Exam: general weakness Psych thought process normal, cooperative and affect normal Appearance: appropriate Weight / BMI Weight Weight: 130 lb 15.273 oz Body Mass Index (BMI) 23.2 ABG / Lab / Microbiology Data 01/10/24 05:57 01/10/24 05:57 Laboratory: Laboratory Results - last 24 hr 01/10/24 05:57: WBC 7.2, RBC 2.95 L, Hgb 9.1 L, Hct 29.6 L, MCV 100.3 H, MCH 30.8, MCHC 30.7 L, RDW Std Deviation 52.3 H, RDW Coeff of David 14.3, Plt Count 225, MPV 9.5, Immature Gran % (Auto) 0.700, Neut % (Auto) 55.5, Lymph % (Auto) 31.8, [place] % (Auto) 9.1, Eos % (Auto) 2.2, Baso % (Auto) 0.7, Absolute Neuts (auto) 4.0, Absolute Lymphs (auto) 2.30, Nucleated RBC % 0, Sodium 139, Potassium 4.3, Chloride 108 H, Carbon Dioxide 22.0, Anion Gap 9, BUN 30 H, Creatinine 5.64 H, Estim Creat Clear Calc 7.90, Est GFR (MDRD) Af Amer 10 L, Est GFR (MDRD) Non-Af 8 L, BUN/Creatinine Ratio 5.3 L, Glucose 85, Calcium 9.5, Phosphorus 8.2 H Microbiology: Microbiology 01/08/24 16:11 Urine, Clean Catch Urine Culture - Preliminary GNR lactose youth coordinator Radiography Diagnostic Testing: Radiology Impression Venous Doppler Study 01/08/24 15:33 Interpretation Summary Acute superficial vein thrombosis noted in the left cephalic vein. Deep veins of the left upper extremity are patent and compressible segmentally. There is no evidence of deep vein thrombosis. Ordering Physician: Jd Kaufman Referring Physician: Giovany Rosa Performed By: Jan Contreras RVT ??? D/C Instructions Discharge Diet: Low fat / Low cholesterol Weight Bearing Status: Weight bearing as tolerated Call your doctor if you observe: Fever of 101 or Higher, Shortness of breath, Dizziness, Swelling in the ankles and Chest pain Meaningful Use Info Meaningful Use Meaningful Use Diagnoses (Choose all that apply): Ischemic CVA CVA Therapy Assessed for PT,OT and/or ST?: Yes Ischemic Stroke Antithrombotic order at d/c?: Yes Dx of Atrial fib/flutter?: No Anticoagulant at discharge?: No Reason anticoagulant not ordered: Treatment not Indicated Statin Dosing Therapy Reference: STATIN DOSE THERAPY REFERENCE: * Patients > 75 years receive moderate or high dose statin therapy. * Patients 75 years or YOUNGER should receive HIGH intensity statin dose unless contraindicated. You will be required to document reason for non-treatment if statin daily dose does not meet guidelines. HIGH DOSE STATIN THERAPY DAILY Atorvastatin > than or = to 40 mg Rosuvastatin > than or = to 20 mg Amlodipine + Atorvastatin > than or = to 2.5/40 mg Ezetimibe + Simvastatin 10/80 mg Simvastatin 80mg Statins at discharge?: Yes If patient is 75 or younger, pt will be discharged on HIGH intensity statin.: Yes Primary Dx Acute Ischemic CVA?: Yes IV thrombolytic ordered during stay?: No Reason IV thrombolytic not ordered: Treatment not Indicated Discharge Plan Admission Admit Date/Time: 01/09/24 16:02 Primary Reason for Your Visit: acute CVA Attending Provider: Louise Car Primary Care Provider: Giovany Damon Consulting Providers: Otis Zhao; Shashank Jacobo; Ama Lea; Rae Samaniego; Brook Murphy; Maira Aguero; Edis Le; Jessenia Bernard; Adan Mcmahan; Néstor Borjas; Zhang River; Missy Iyer; Oswaldo Smart; Kimberly Orlando; Casi Spangler; Darwin Chavez; Saqib Marsh; Severino Robles; Oscar Villalobos; Dominique Gomez; Jorge Elmore; Suze Gomez Instructions Patient Instructions: Discharge Instructions for Stroke Additional Instructions / Restrictions: see PCP for referral to cardiology for PUNEET. Discharge Orders/Prescriptions Prescriptions: New atorvastatin 40 mg Tablet 40 mg PO QHS Qty: 30 2RF aspirin 81 mg Tablet,Chewable 81 mg PO BREAKFAST Qty: 30 2RF cefdinir 300 mg capsule 300 mg PO BID Qty: 10 0RF clopidogrel [Plavix] 75 mg tablet 75 mg PO DAILY Qty: 21 0RF Continued omega-3 fatty acids 1,000 mg capsule 1,000 mg PO DAILY multivitamin [Daily Multi-Vitamin] Tablet 1 tab PO DAILY carvedilol 25 mg tablet 25 mg PO DAILY pramipexole 0.25 mg tablet 0.25 mg PO QHS Other Ambulatory Orders: 30 Day Event Recorder Preventi (Urgent) Timeframe: 1 Day Facility: [facility] - Location: Cardiovascular Services Ordered By: Dr. Louise Car Referrals / Follow Up: Fidencio Monroe MD [Non-Staff -Ordering Privileges] - Within 2 Weeks (see to establish care for stroke. Truck Rental Clerk called the office while they are out on lunch and left a voicemail. If you do not receive a call back by 01/11, please give them a call.) Giovany Damon MD [Primary Care Provider] - 01/17/24 11:20 am Disposition Disposition (needs filled in before D/C Order can be placed): Home, Self Care Charges/Coding Visit Charges Inpatient E&M: 31984 Disch Hosp >30min
[2024-01-10] MEDS: 0.9% Normal Saline 1,000 ML IV.SOLN. 1000 ML OPERA.SITE (12:37)
[2024-01-10] MEDS: Heparin 10,000 UNITS/10 ML Vial IV (12:38)
[2024-01-10] MEDS: PureFlow B 3K Dialysis Soln 1 BAG 6 BAG PF (12:38)
[2024-01-10 13:31] LABS: Hemoglobin A1c 4.7 % (3.8-5.6)
[2024-01-10] MEDS: Epoetin Alfa epbx 10,000 UNIT/ML 2000 UNIT IV (14:03)
[2024-01-10] MEDS: Folic Acid/Vitamin B Comp W-C 1 Capsule 1 CAP PO (15:34)
--- NOTE | 2024-01-10 15:43 | PCM.CONS.C ---
HPI Consult Data Date of Consult: 01/10/24 HPI Narrative Reason for Consultation: PUNEET HPI Narrative: ARY ZARATE, is a 68 F who presents with an embolic CVA. Cardiology consult was requested for possible PUNEET. Procedure was explained to the patient in detail. Risks and benefits explained. Data on PUNEET for CVA was also reviewed and explained to the patient that while most of the benefit is not patients younger than 60 there is some benefit in patients older than 60 as well. Explained other options also to the patient. Patient prefers to go home today. Explained to her that we should at least get a 30-day event monitor. If she has an indication for anticoagulation then she may not need a PUNEET after that. She would be following up with neurology. If she has no evidence of A-fib on 30-day event monitoring then at that time neurology could consider referring her for a PUNEET if felt to be clinically indicated at that time. Patient understands the risks and benefits and wishes to proceed in this direction. She can be discharged home from a cardiac standpoint. [facility] Medical History (Updated 01/10/24 @ 09:[address] Suze Gomez, DO) Wears dentures Wears glasses Gout History of renal dialysis Low iron History of hiatal hernia Non-smoker History of edema Hypercalcemia HTN (hypertension) Home Medications ?Medication ?Instructions ?Recorded ?Last Taken ?Type omega-3 fatty acids 1,000 mg 1,000 mg PO DAILY supplement 10/28/19 01/01/24 History capsule multivitamin (Daily Multi-Vitamin 1 tab PO DAILY vitamin 10/19/23 01/01/24 History tablet) carvedilol 25 mg tablet 25 mg PO DAILY blood pressure 01/08/24 01/07/24 History pramipexole 0.25 mg tablet 0.25 mg PO QHS restless legs 01/09/24 Unknown History aspirin 81 mg chewable tablet 81 mg PO BREAKFAST #30 tabs 01/10/24 Unknown Rx atorvastatin 40 mg tablet 40 mg PO QHS #30 tabs 01/10/24 Unknown Rx cefdinir 300 mg capsule 300 mg PO BID #10 caps 01/10/24 Unknown Rx clopidogrel 75 mg tablet (Plavix) 75 mg PO DAILY #21 tabs 01/10/24 Unknown Rx Allergy/AdvReac Type Severity Reaction Status Date / Time No Known Allergies Allergy Verified 01/08/24 21:25 Family History Grandmother Cancer Mother Heart disease Father Hypertension Sister Kidney calculi Surgical History History of parathyroid surgery History of AAA (abdominal aortic aneurysm) repair History of appendectomy Status post surgical removal of both fallopian tubes History of removal of both ovaries Social History Smoking Status: Never smoker alcohol intake: never substance use type: does not use Risk Stratification Risk Stratification Applicable: No Objective Data Vital Signs: Vital Signs Temp Pulse Resp BP Pulse Ox O2 Del Method 98.0 F 66 16 193/98 H 98 Room Air 01/10/24 15:03 01/10/24 15:03 01/10/24 15:03 01/10/24 15:03 01/10/24 15:03 01/10/24 15:03 Oxygen Delivery Method Room Air Weight: 128 lb 4.944 oz Body Mass Index (BMI) 22.7 Intake & Output: Intake and Output for Last 24 Hours 01/08/24 01/09/24 01/10/24 23:59 23:59 23:59 Intake Total 1000 / 3253 623.8569 / 803.3333 530 / 530 Output Total 1030 / 1030 Balance 1000 / 0679 913.4480 / 803.3333 -500 / -500 Lab / Micro Data 01/10/24 05:57 01/10/24 05:57 Labs: Laboratory Results - last 24 hr 01/10/24 05:57: WBC 7.2, RBC 2.95 L, Hgb 9.1 L, Hct 29.6 L, MCV 100.3 H, MCH 30.8, MCHC 30.7 L, RDW Std Deviation 52.3 H, RDW Coeff of David 14.3, Plt Count 225, MPV 9.5, Immature Gran % (Auto) 0.700, Neut % (Auto) 55.5, Lymph % (Auto) 31.8, [place] % (Auto) 9.1, Eos % (Auto) 2.2, Baso % (Auto) 0.7, Absolute Neuts (auto) 4.0, Absolute Lymphs (auto) 2.30, Nucleated RBC % 0, Sodium 139, Potassium 4.3, Chloride 108 H, Carbon Dioxide 22.0, Anion Gap 9, BUN 30 H, Creatinine 5.64 H, Estim Creat Clear Calc 7.90, Est GFR (MDRD) Af Amer 10 L, Est GFR (MDRD) Non-Af 8 L, BUN/Creatinine Ratio 5.3 L, Glucose 85, Hemoglobin A1c 4.7, Calcium 9.5, Phosphorus 8.2 H Micro: Microbiology 01/08/24 16:11 Urine, Clean Catch Urine Culture - Preliminary GNR 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 Cardiology Labs/Tests 01/10/24 05:57: WBC 7.2, RBC 2.95 L, Hgb 9.1 L, Hct 29.6 L, MCV 100.3 H, MCH 30.8, MCHC 30.7 L, Plt Count 225, MPV 9.5, Immature Gran % (Auto) 0.700, Neut % (Auto) 55.5, Lymph % (Auto) 31.8, [place] % (Auto) 9.1, Eos % (Auto) 2.2, Baso % (Auto) 0.7, Absolute Neuts (auto) 4.0, Nucleated RBC % 0, Sodium 139, Potassium 4.3, Chloride 108 H, Carbon Dioxide 22.0, Anion Gap 9, BUN 30 H, Creatinine 5.64 H, Est GFR (MDRD) Af Amer 10 L, Est GFR (MDRD) Non-Af 8 L, BUN/Creatinine Ratio 5.3 L, Glucose 85, Hemoglobin A1c 4.7, Calcium 9.5, Phosphorus 8.2 H Rhythm: EKG: ECHO: Stress Test: Cardiac Cath: PCI: CT Surgery: Holter monitor: EPS: PPM: CXR: Chest CT Scan: Radiography Diagnostic Testing: Radiology Impression Venous Doppler Study 01/08/24 15:33 Interpretation Summary Acute superficial vein thrombosis noted in the left cephalic vein. Deep veins of the left upper extremity are patent and compressible segmentally. There is no evidence of deep vein thrombosis. Ordering Physician: Jd Kaufman Referring Physician: Giovany Rosa Performed By: Jan Contreras RVT ??? Echocardiogram 01/09/24 12:17 Interpretation Summary The estimated ejection fraction is 60 %. No evidence for diastolic dysfunction. The left atrium is mildly enlarged. Ordering Physician: Louise Car Referring Physician: Giovany Damon M.D. Performed By: Patsy Roa RDCS and Student
[2024-01-10] MEDS: Allopurinol 100 MG Tablet 50 MG PO (15:52)
--- NOTE | 2024-01-10 16:06 | CASEMGMT ---
KRISTIAN BAPTISTE into pt room. Pt denies any needs at this time. Pt states receives HD through [facility] in [place], asked KRISTIAN BAPTISTE to call and notify them of DC. Denies any additional questions or concerns at this time. KRISTIAN BAPTISTE called [facility] and notified them of pt DC and pt will be there for HD on Monday morning.
== END 2024-01-10 16:43 | disposition home or self-care (01) | DRG 64 ==
LOC: ED 14:35 → PCU 23:24
PROVIDERS: Internal Medicine Nephrology; Admitting Provider Family Medicine; Emergency Provider Emergency Medicine; PCP Internal Medicine; Visit Provider Student in an Organized Health Care Education/Training Program
DX: I63.81 Other cerebral infarction due to occlusion or stenosis of small artery (principal); N18.6 End stage renal disease; I12.0 Hypertensive chronic kidney disease with stage 5 chronic kidney disease or end stage renal disease; N39.0 Urinary tract infection, site not specified; G25.81 Restless legs syndrome; M10.9 Gout, unspecified; Z99.2 Dependence on renal dialysis; R29.700 NIHSS score 0; Z79.899 Other long term (current) drug therapy
CPT/HCPCS: 36415; 70450; 70544; 70547; 70551; 71045; 73030; 73080; 73206; 80048; 80053; 80061; 81001; 83036; 84100; 84484; 84550; 85025; 85610; 85730; 87077; 87086; 87088; 87186; 90937; 92610; 93005; 93306; 93971; 94762; 97162; 97166; 99283; J7030; J7040; Q9967; A4216; G0257; Q5106

== ENCOUNTER 2024-03-19 05:31 | Day surgery (SDC) | payer OTHER, SELFPAY ==
[2024-03-19] VITALS (11 sets, daily range): BP systolic 113–135; BP diastolic 63–83; PULSE 63–76; RESP 16; TEMP 36.1–36.6; O2SAT 92–100; BMI 23.0
--- NOTE | 2024-03-19 06:43 | PCM.PRE.AN2 ---
ASA Classification* ASA Classification ASA Classification: 3 Assessment & Plan Anesthesia* Anesthesia Assessment Anesthesia Assessment: Discussed sedation and/or anesthesia options, risks, benefits, and alternatives with patient/parents/legal guardian/POA. Questions invited. The patient/parents/legal guardian/POA seems to understand and agrees to proceed with anesthesia plan. Reviewed the physical assessment, medical history, allergy history and patient home medications list prior to surgery/procedure/anesthetic and documented any changes. Performed airway and anesthesia risk assessments. Anesthesia Type Anesthesia Type: MAC Anesthesia Focused Assessment* Temperature: 97.9 F Pulse Rate: 76 Blood Pressure: 130/83 Respiratory Rate: 16 Pulse Ox: 100 Airway Assessment Mouth opens: >3 cm Mallampati Score: II Focused Labs Anesthesia Preop lab: CBC WBC 7.2 K/mm3 (4.4-11.0) 01/10/24 05:57 RBC 2.95 M/mm3 (4.2-5.4) L 01/10/24 05:57 Hgb 9.1 g/dL (12.0-15.0) L 01/10/24 05:57 Hct 29.6 % (37-47) L 01/10/24 05:57 Plt Count 225 K/mm3 (150-450) 01/10/24 05:57 CHEMISTRY Potassium 4.3 mmol/L (3.5-5.1) 01/10/24 05:57 Sodium 139 mmol/L (136-145) 01/10/24 05:57 Magnesium 2.0 mg/dL (1.6-2.6) 06/26/19 05:55 Phosphorus 8.2 mg/dL (2.5-4.9) H 01/10/24 05:57 BUN 30 mg/dL (7-18) H 01/10/24 05:57 Creatinine 5.64 mg/dL (0.55-1.02) H 01/10/24 05:57 Glucose 85 mg/dL (74-106) 01/10/24 05:57 TSH 2.83 uIU/mL (0.358-3.74) 06/25/19 06:18 COAG PT 15.0 SECONDS (11.7-14.9) H 01/08/24 15:35 Pre-Assessment Diagnosis/Proposed Procedure Planned Operative Procedure(s): LEFT BASILIC FISTULA TRANSPORTATION Anesthesia History Anesthesia History - director of corporate responsibility: Anesthesia History - director of corporate responsibility Hx Hospitalization Yes: STROKE 01/09/24, LEFT 02/27/24 10:15 ARM WEAK AND UNABLE TO OPEN HAND Any Problems With Anesthesia No 02/27/24 10:15 Cholinesterase deficiency No 02/27/24 10:15 You/Your Family Experience No 02/27/24 10:15 fever (hyperthermia) with Relationship Recent Exposure to Contagious No 03/19/24 06:03 Disease Does patient have nerve No 02/27/24 10:15 stimulator Patient instructed to have device shut off --Does patient have Pacemaker No 03/19/24 06:03 or ICD? When Was Last Pacemaker Check QUESTION #4 FULL TEXT: You/Your Family Experience fever (hyperthermia) with Anesthesia Last Oral Intake Last Oral intake: Last Oral Intake NPO since 21:30 03/19/24 06:03 Meds taken in AM with sips of No 03/19/24 06:03 water? Meds patient instructed to take am of surgery PONV PONV - director of corporate responsibility: PONV - director of corporate responsibility Female Yes 02/27/24 10:15 HX of Motion Sickness No 02/27/24 10:15 HX of N/V After Surgery No 02/27/24 10:15 Non-Smoker Yes 02/27/24 10:15 Duration of Surgery greater Yes 02/27/24 10:15 than 60 minutes Number of Risk Factors 3 02/27/24 10:15 PONV Score Moderate Risk 02/27/24 10:15 Height & Weight Height & Weight: Anesthesia: Height & Weight Height 5 ft 3 in 03/19/24 06:03 Weight: 58.9 kg 03/19/24 06:03 Body Mass Index (BMI) 23.0 03/19/24 06:03 Respiratory Assessment Respiratory Assessment - director of corporate responsibility: Respiratory Tract Infection Hx - director of corporate responsibility Hx Respiratory Tract Infection No 02/27/24 10:15 STOP Sleep Apnea STOP Sleep Apnea - director of corporate responsibility: STOP Sleep Apnea - director of corporate responsibility Hx Hypertension Yes: CONTROLLED WITH MED 02/27/24 10:15 Hx Sleep Apnea No 02/27/24 10:15 CPAP BIPAP Do you snore loudly (louder No 02/27/24 10:15 than talking or can be heard Do you often feel tired/ No 02/27/24 10:15 fatigued/ sleepy during daytime? Has anyone observed you stop No 02/27/24 10:15 breathing during sleep? STOP Results Negative 02/27/24 10:15 QUESTION #5 FULL TEXT : Do you snore loudly (louder than talking or can be heard through closed doors)? Tobacco Use History Tobacco Use History - director of corporate responsibility: Tobacco Use History - director of corporate responsibility Tobacco Use Non-smoker 01/10/24 16:40 Smoking Status Never smoker 02/27/24 10:15 Hx Tobacco Use No 02/27/24 10:15 Years Smoking Packs Smoked per Day Smoking Cessation Date was within the last 15 years Hx Smoking Cessation Date Hx Smoking Cessation No 02/27/24 10:15 Counseling Hematologic Medial History Hematologic Hx - director of corporate responsibility: Hematologic Medical Hx - entertainment reporter Hx of Blood Transfusion Yes 02/27/24 10:15 Hx of Transfusion in last 3 No 02/27/24 10:15 Months Date of Last Transfusion (if within last 3 months) Ever experience any problems No 02/27/24 10:15 with transfusion(s)? Specify any problems Hx of Preganancy in last 3 No 02/27/24 10:15 Months Nurse Filling Out Transfusion DSCHRIBER 02/27/24 10:15 & Questions: Date: 02/27/24 02/27/24 10:15 Time: 10:21 02/27/24 10:15 Patient unable to answer at this time (ie. confused, unrespo /Reproduction History /Reproductive History - director of corporate responsibility: /Reproductive Hx- director of corporate responsibility Hx Now No 02/27/24 10:15 Gestational Age (in weeks): EDC: Hx Hx Para Hx Section SAB No 02/27/24 10:15 Active Medications Active Medications: Current Medications Generic Name Dose Route Start Last Admin Trade Name Freq PRN Reason Stop Dose Admin Cefazolin Sodium 2 gm/ N/A 20 mls @ 400 mls/hr 03/19/24 07:30 IV 03/19/24 07:32 PREOP ONE Sodium Chloride 500 mls @ 0 mls/hr 03/19/24 06:30 IV .Q0M ELOY KVO PFSH Medical History Depression Anxiety Discoloration of skin Arthritis High cholesterol Restless legs Injury of head and neck Syncope Dietary restriction Constipation Leg cramps History of pain when walking History of Holter monitoring History of echocardiogram Cardiology follow-up encounter Anemia in chronic kidney disease Lacunar stroke Arm pain, left Left arm weakness Wears dentures Wears glasses Gout History of renal dialysis Low iron History of hiatal hernia Non-smoker History of edema ESRD (end stage renal disease) on dialysis Hypertension Hypercalcemia HTN (hypertension) Hypercalcemia Home Medications ?Medication ?Instructions ?Recorded ?Last Taken ?Type omega-3 fatty acids 1,000 mg 1,000 mg PO DAILY supplement 10/28/19 01/01/24 History capsule multivitamin (Daily Multi-Vitamin 1 tab PO DAILY vitamin 10/19/23 01/01/24 History tablet) carvedilol 25 mg tablet 25 mg PO QHS blood pressure 01/08/24 01/07/24 History pramipexole 0.25 mg tablet 0.25 mg PO QHS PRN restless legs 01/09/24 Unknown History aspirin 81 mg chewable tablet 81 mg PO BREAKFAST #30 tabs 01/10/24 Unknown Rx allopurinol 100 mg tablet 50 mg PO DAILY 02/27/24 Unknown History sevelamer carbonate 800 mg tablet 800 mg PO TID 02/27/24 Unknown History vitamin B complex and vitamin C 1 cap PO DAILY 02/27/24 Unknown History no.20-folic acid 1 mg capsule (Sellaroundcaps) Allergy/AdvReac Type Severity Reaction Status Date / Time No Known Allergies Allergy Verified 03/19/24 05:59 Family History Grandmother Cancer Mother Heart disease Father Hypertension Sister Kidney calculi Surgical History History of parathyroid surgery History of AAA (abdominal aortic aneurysm) repair History of appendectomy Status post surgical removal of both fallopian tubes History of removal of both ovaries Social History Smoking Status: Never smoker alcohol intake: never substance use type: does not use Review of Systems (Anesthesia) ROS Narrative System reviewed and no additional complaints, except as documented.
--- NOTE | 2024-03-19 07:33 | HP.PCM_ITS ---
History and Physical Allergies No Known Allergies Allergy (Verified 03/11/24 13:01) Medications ?Medication ?Instructions ?Recorded ?Confirmed ?Type omega-3 fatty acids 1,000 mg 1,000 mg PO DAILY supplement 10/28/19 03/11/24 History capsule multivitamin (Daily Multi-Vitamin 1 tab PO DAILY vitamin 10/19/23 03/11/24 History tablet) carvedilol 25 mg tablet 25 mg PO QHS blood pressure 01/08/24 03/11/24 History pramipexole 0.25 mg tablet 0.25 mg PO QHS PRN restless legs 01/09/24 03/11/24 History aspirin 81 mg chewable tablet 81 mg PO BREAKFAST #30 tabs 01/10/24 03/11/24 Rx allopurinol 100 mg tablet 50 mg PO DAILY 02/27/24 03/11/24 History sevelamer carbonate 800 mg tablet 800 mg PO TID 02/27/24 03/11/24 History vitamin B complex and vitamin C 1 cap PO DAILY 02/27/24 03/11/24 History no.20-folic acid 1 mg capsule (Rentifycaps) Is last menstrual period known: No Post menopausal: Yes Patient : No Have you fallen in the past year?: Yes Subjective Details: Doing well overall. Suffered stroke about a week after fistula creation that had primarily LUE extremity symptoms. 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 She has also developed a prominent, [id number] bursa on the posterior aspect of her left elbow that arose a few weeks ago. Objective Details: A&O x3, NAD RRR Resp non labored +thrill to mid upper arm, +radial pulse, normal capilalry refill Coding Level of Care Code Global Post Op Diagnoses ESRD (end stage renal disease) on dialysis N18.6; Z99.2 [facility] Medical History Depression Anxiety Discoloration of skin Arthritis High cholesterol Restless legs Injury of head and neck Syncope Dietary restriction Constipation Leg cramps History of pain when walking History of Holter monitoring History of echocardiogram Cardiology follow-up encounter Anemia in chronic kidney disease Lacunar stroke Arm pain, left Left arm weakness Wears dentures Wears glasses Gout History of renal dialysis Low iron History of hiatal hernia Non-smoker History of edema ESRD (end stage renal disease) on dialysis Hypertension Hypercalcemia HTN (hypertension) Hypercalcemia Surgical History History of parathyroid surgery History of AAA (abdominal aortic aneurysm) repair History of appendectomy Status post surgical removal of both fallopian tubes History of removal of both ovaries Family History Grandmother CancerMother Heart diseaseFather HypertensionSister Kidney calculi Social History Smoking Status: Never smoker alcohol intake: never substance use type: does not use Assessment and Plan (No Qualifiers) Assessment and Plan (1) ESRD (end stage renal disease) on dialysis: Status: Chronic Plan: -fistula well matured -plan stage II transposition
[2024-03-19] MEDS: Cefazolin 2 GM in Syringe IV (08:00)
[2024-03-19 08:11] LABS: Hematocrit 36.7 % (37-47); Hemoglobin 11.9 g/dL (12.0-15.0); Mean Corp Hgb Conc 32.4 g/dL (32-36); Mean Corpuscular Hgb 32.8 pg (27.0-32.0); Mean Corpuscular Volume 101.1 fL (81-99); Mean Platelet Vol. 9.9 fl (6.2-12.0); Platelet Count 259 K/mm3 (150-450); RBC Distribution Width CV 14.4 % (11.6-14.6); RBC Distribution Width SD 52.3 fl (35.1-43.9); Red Blood Count 3.63 M/mm3 (4.2-5.4); White Blood Count 6.7 K/mm3 (4.4-11.0)
[2024-03-19 08:35] LABS: Anion Gap 7 (5-15); BUN 32 mg/dL (7-18); BUN/Creat Ratio 6.4 RATIO (10-20); Calcium,Total 10.4 mg/dL (8.5-10.1); Chloride 100 mmol/L (98-107); EST Glomerular Filtration Rate 9 mL/min (>60); Est Glom Filt Rate - Afr Amer 11 mL/min (>60); Estimated Creatinine Clearance 8.91 ml/min; Glucose 84 mg/dL (74-106); Potassium 3.7 mmol/L (3.5-5.1); Sodium Level 138 mmol/L (136-145)
[2024-03-19] MEDS: Bupivacaine 0.25% 30 ML Vial (10:17)
[2024-03-19] MEDS: Lidocaine 1% (20 ml mdv) 20 ML Vial (10:19)
--- NOTE | 2024-03-19 10:19 | EX.PCM.DISCH ---
Discharge Instructions Diet Discharge Diet: No restrictions Activity Lifting Restrictions: do not lift > 20 lbs with left arm for 3 weeks Additional Activity Instructions:: do not submerge incision for 3 weeks Dressing / Incision Call your doctor if your incision/area has: Sudden Increased Bleeding, Increased Pain/ Swelling, Increased Redness and Foul Smelling Discharge Call your doctor if you observe: Fever of 101 or Higher Remove Dressing in: 2 days Cleanse incision/area with: Soap & Water Follow Up Care Test Results: Test results from this visit will be discussed in further detail at your follow-up appointment, if applicable. Discharge Plan Admission Attending Provider: Balta Fontana Primary Care Provider: Giovany Damon Instructions Print Language: Turkmen Discharge Orders/Prescriptions Prescriptions: New oxycodone 5 mg tablet 5 mg PO Q8H PRN (Reason: pain) 4 Days Qty: 12 0RF Continued omega-3 fatty acids 1,000 mg capsule 1,000 mg PO DAILY multivitamin [Daily Multi-Vitamin] Tablet 1 tab PO DAILY carvedilol 25 mg tablet 25 mg PO QHS pramipexole 0.25 mg tablet 0.25 mg PO QHS PRN aspirin 81 mg Tablet,Chewable 81 mg PO BREAKFAST Qty: 30 2RF allopurinol 100 mg tablet 50 mg PO DAILY sevelamer carbonate 800 mg tablet 800 mg PO TID Wescaps 1 mg capsule 1 cap PO DAILY Referrals / Follow Up: Giovany Damon MD [Primary Care Provider] - Disposition Disposition (needs filled in before D/C Order can be placed): Home, Self Care
--- NOTE | 2024-03-19 11:00 | PCM.POST.ANE ---
Anesthesia: Postop Eval I Current Vital Signs Temperature: 97.5 F Pulse Rate: 74 Blood Pressure: 123/71 Respiratory Rate: 16 Pulse Ox: 99 Oxygen Delivery Method: Simple Mask Oxygen Flow Rate (L/min): 4 Assessment Airway patent: Yes Spontaneous unlabored respirations: Yes Mental status: Asleep nausea: No Vomiting: No Anesthesia Complication: No Fluid Hydration Crystalloid volume administer (ml): 500 Total IV fluid infused: 500 Progress Note Anesthesia document: Postop Eval 1 completed: Yes
--- NOTE | 2024-03-19 14:09 | PCM.POSTANE2 ---
Anesthesia Postop Eval I Sum Postop Eval Completion status Anesthesia document: Postop Eval 1 completed: Yes Anesthesia Postop Eval I Summary Anesthesia Postop Eval I Summary: Anesthesia Postop Eval I: Assessment Summary Airway patent Yes 03/19/24 11:01 [email or web address] Spontaneous unlabored Yes 03/19/24 11:01 [email or web address] respirations Mental status Asleep 03/19/24 11:01 [email or web address] nausea No 03/19/24 11:01 [email or web address] Vomiting No 03/19/24 11:01 [email or web address] Anesthesia Postop Eval I: Fluid Summary Crystalloid volume administer 500 03/19/24 11:01 [email or web address] (ml) Colloids volume administered ( ml) Blood Product volume administered (ml) Total IV fluid infused 500 03/19/24 11:01 [email or web address] Anesthesia Postop Eval I: Summary Notes Anesthesia Complication No 03/19/24 11:01 [email or web address] Anesthesia Complication Comment: Post-operative progress note Anesthesia: Postop Eval II Evaluation Mental status: Awake Pain Level: 0 nausea: No Vomiting: No
--- NOTE | 2024-03-19 16:53 | OP.PCM_ITS ---
Operative Report (Standard) Operative Information Date of Procedure: 03/19/24 Pre-Operative Diagnosis: End-stage renal disease, prior left stage I basilic fistula creation Post-Operative Diagnosis: Same Surgery/Procedure Performed: Stage II basilic transposition cripple cutter: Yes [employer] Chemicals Supervisor: Susie Jesus Tasks completed by occupational therapist assistant: Opening, Closing, Hemostasis: Tie, Hemostasis: Electrocautery and Retracting Type of Anesthesia: Local and MAC RN Documented Start/Stop Times: Operation Date: 03/19/24 07:30 Case Time Into Pre-Op 03/19/24 06:01 Out of Pre-Op 03/19/24 07:33 Anesthesia Start 03/19/24 07:37 Into Room 03/19/24 07:37 Procedure Start 03/19/24 08:11 Procedure End 03/19/24 10:46 Anesthesia End 03/19/24 10:52 Out of Room 03/19/24 10:52 Into Recovery 03/19/24 10:55 Out of Recovery 03/19/24 11:52 Into Phase II Recovery 03/19/24 11:53 Out of Phase II 03/19/24 13:13 Procedure Start Time: 08:11 Procedure Stop Time: 10:46 Select all DRAINS/GRAFTS/IMPLANTS that apply: None Estimated Blood Loss: 10 Specimen collected: No Description of surgery: HPI: Patient is a 68-year-old female with end-stage renal disease currently on dialysis. She previously had a left stage I basilic fistula created which has matured well. She presents now for transposition. Description of procedure: Upon obtaining form consent and verification correct patient procedure site patient was taken to the operating where she was positioned prepped and draped in usual sterile fashion. Timeout was performed and moderate sedation administered by anesthesia. Ultrasound was used to evaluate and doyle the basilic vein which was adequate throughout the upper arm with confluence with the brachial vein at the axilla. Skin overlying the vein was anesthetized with mixture of lidocaine and Marcaine. Longitudinal skin incision was made and Bovie electrocautery was dissect down through subcutaneous tissue and self-retaining retractors put in position. Further dissection was carried down until the fistula was visualized and sharp dissection then used to dissect free along the entirety of its length from the antecubital crease to the axilla. Care was taken to identify protect adjacent nerve and arterial structures. Sidebranches were ligated with silk ties and divided and once the entirety of the fistula was mobilized it was marked to maintain orientation. A Mcbrides tunneler was then used to tunnel along the anterior aspect of the upper arm the patient heparinized allowed to circulate for 3 minutes. The fistula was then clamped proximally with a DeBakey clamp and distally with a bulldog clamp. It was then divided and anterior bevel and extracted from behind the nerves of the upper arm. It was then secured to the tunneler and pulled through the subcutaneous tract. Stenosis was then performed with 6-0 Prolene in four- quadrant technique. Prior to completing suture line vessels were backbled and the lumen flushed with heparinized saline. After completing the suture line clamps removed with satisfactory hemostasis noted. There is a palpable thrill throughout the fistula and no change in a palpable radial pulse at the wrist. Heparin was then reversed with protamine and the incision inspected for hemostasis. There was then closed with 2-0 Vicryl, 3-0 Vicryl, 4 Monocryl and Dermabond for the skin. The patient was then taken the recovery room with plan discharged to home. Surgical Findings: Palpable thrill, palpable radial pulse Complications Complications: No
== END 2024-03-19 13:13 | disposition home or self-care (01) ==
LOC: SDC 05:32 → AC 05:32
PROVIDERS: PCP Internal Medicine; Referring Provider Surgery Trauma Surgery; Visit Provider Surgery Trauma Surgery
PROC: (CPT 36819; principal; 2024-03-19 07:15)
DX: I12.0 Hypertensive chronic kidney disease with stage 5 chronic kidney disease or end stage renal disease (principal); N18.6 End stage renal disease; Z99.2 Dependence on renal dialysis; E78.00 Pure hypercholesterolemia, unspecified; G25.81 Restless legs syndrome; Z79.82 Long term (current) use of aspirin; Z79.899 Other long term (current) drug therapy; Z86.73 Personal history of transient ischemic attack (TIA), and cerebral infarction without residual deficits
CPT/HCPCS: 36819; 01844; 80048; 85027; A4648; A4216; J2405

== ENCOUNTER → 2024-04-17 | Outpatient (CLI) | payer OTHER, SELFPAY ==
--- NOTE | 2024-04-17 13:05 | AVDS_ITS ---
Reason For Study: ESRD LEFT Inflow, 279.8/148.9 cm/s Inflow, 2369 ml/min Prox anastamosis, 891.3/537.0 cm/s Prox anastamosis, 1833 ml/min Prox graft, 123.5/61.4 cm/s Prox graft, 1775 ml/min Mid graft, 189.6/108.8 cm/s Mid graft, 1585 ml/min Distal graft, 110.7/61.4 cm/s Distal graft, 1298 ml/min Outflow, 59.0/29.3 cm/s Outflow, 978.4 ml/min Area at mid graft with vessel size change: 2795 ml/min before size change. 754 ml/min at decrease of size. 2502 ml/min after size change. VL/AV Fistula/Dialysis Graft Scan Interpretation Summary Patent left upper arm fistula with adequate flow volumes throughout. Caliber change with increase in velocities in mid graft. Ordering Physician: Brook Benoit Referring Physician: Giovany Damon M.D. Performed By: Alina Tripathi RVT and Student
== END | disposition home or self-care (01) ==
PROVIDERS: PCP Internal Medicine; Referring Provider Physician Assistant; Visit Provider Physician Assistant
DX: N18.6 End stage renal disease (principal); I77.0 Arteriovenous fistula, acquired
CPT/HCPCS: 93990

== ENCOUNTER 2024-06-19 11:35 | Day surgery (SDC) | payer OTHER, SELFPAY ==
[2024-06-18 07:24] VITALS: BMI 22.4
--- NOTE | 2024-06-19 12:23 | PCM.HP.STD ---
HPI - General HPI Narrative ARY ZARATE, is a 69 F who presents with prior right IJ catheter no longer in use for dialysis. [facility] Medical History Depression Anxiety Discoloration of skin Arthritis High cholesterol Restless legs Injury of head and neck Syncope Dietary restriction Constipation Leg cramps History of pain when walking History of Holter monitoring History of echocardiogram Cardiology follow-up encounter Anemia in chronic kidney disease Lacunar stroke Arm pain, left Left arm weakness Wears dentures Wears glasses Gout History of renal dialysis Low iron History of hiatal hernia Non-smoker History of edema ESRD (end stage renal disease) on dialysis Hypertension Hypercalcemia HTN (hypertension) Hypercalcemia Home Medications ?Medication ?Instructions ?Recorded ?Last Taken ?Type omega-3 fatty acids 1,000 mg 1,000 mg PO DAILY supplement 10/28/19 01/01/24 History capsule multivitamin (Daily Multi-Vitamin 1 tab PO DAILY vitamin 10/19/23 01/01/24 History tablet) carvedilol 25 mg tablet 25 mg PO QHS blood pressure 01/08/24 01/07/24 History pramipexole 0.25 mg tablet 0.25 mg PO QHS PRN restless legs 01/09/24 Unknown History aspirin 81 mg chewable tablet 81 mg PO BREAKFAST #30 tabs 01/10/24 06/18/24 Rx allopurinol 100 mg tablet 50 mg PO DAILY 02/27/24 Unknown History sevelamer carbonate 800 mg tablet 800 mg PO TID 02/27/24 Unknown History vitamin B complex and vitamin C 1 cap PO DAILY 02/27/24 Unknown History no.20-folic acid 1 mg capsule ([facility]) Allergy/AdvReac Type Severity Reaction Status Date / Time No Known Allergies Allergy Verified 05/08/24 11:36 Family History Grandmother Cancer Mother Heart disease Father Hypertension Sister Kidney calculi Surgical History History of parathyroid surgery History of AAA (abdominal aortic aneurysm) repair History of appendectomy Status post surgical removal of both fallopian tubes History of removal of both ovaries Social History Smoking Status: Never smoker alcohol intake: never substance use type: does not use ROS Constitutional Constitutional: Denies chills, fever(s), frequent falls, lethargy or weakness Eyes Eyes: Denies blind spots, change in vision or loss of vision ENT HEENT: Denies bleeding gums, hoarseness or sore throat Cardiovascular Cardiovascular: Denies abdominal pain, bluish discoloration of hand/feet, chest pain with activity, claudication, cold extremities, cyanosis, dyspnea on exertion, erythema on extremities, irregular heart rhythm, leg edema, leg ulcers, numbness in extremities or weakness in extremities Respiratory/Chest Respiratory/Chest: Denies cough, excessive phlegm production, shortness of breath at rest, shortness of breath with exertion or wheezing Gastrointestinal Gastrointestinal: Denies anorexia, change in stool character, constipation, diarrhea, melena or rectal bleeding Genitourinary Genitourinary: Denies dysuria or hematuria Musculoskeletal Musculoskeletal: Denies abnormal gait Integumentary Integumentary: Reports other Details: ; Denies erythema, non-healing lesions or wounds Neurologic Neurologic: Denies abnormal speech, focal weakness, headache(s), loss of vision, numbness, paresthesias or sensory deficit Hematologic/Lymphatic Hematologic/Lymphatic: Denies easy bleeding, easy bruising or lymphadenopathy Vital Signs Vital Signs Vital Signs: Weight Weight: 127 lb Body Mass Index (BMI) 22.4 Physical Exam Const alert, oriented x3, no apparent distress and healthy appearing General Appearance: cooperative; Negative for combative or lethargic Orientation / Consciousness: awake Exam Limitations: no limitations HEENT Head and Scalp: normocephalic and atraumatic Eyes EOMs intact bilaterally General Eye: normal appearance of both eyes Neck full ROM General: trachea midline Resp normal respiratory effort and no use of accessory muscles Effort and Inspection: Negative for labored, stridor or audible wheezes Cardio regular rate and regular rhythm Back/Spine Cervical Spine: cervical ROM normal Extremity full ROM, normal capillary refill and no clubbing, cyanosis or edema Skin no rashes or lesions noted and no wounds Neuro oriented x3, CN's II-XII intact bilaterally, no focal motor deficits and no sensory deficits noted Psych thought process normal, cooperative, affect normal, speech normal and activity/motor behavior normal Assessment & Plan Assessment/Plan (1) Vascular dialysis catheter in place: PLAN: -remove catheter
--- NOTE | 2024-06-19 15:22 | PCM.OPRPT ---
Operative Report (Standard) Operative Information Date of Procedure: 06/19/24 Pre-Operative Diagnosis: End-stage renal disease, prior right IJ catheter no longer in use Post-Operative Diagnosis: Same Surgery/Procedure Performed: Removal right tunneled IJ catheter unemployment examiner: No Type of Anesthesia: Local and Sedation,Conscious Procedure Start Time: 12:30 Procedure Stop Time: 12:40 Select all DRAINS/GRAFTS/IMPLANTS that apply: None Estimated Blood Loss: 4 Specimen collected: No Description of surgery: HPI: Patient is a 69-year-old female with end-stage renal disease currently on dialysis. She has a functioning left basilic fistula which is currently in use without difficulties. She had been using a right IJ tunneled dialysis catheter and presents now for removal. Description of procedure: Upon obtaining form consent and verification correct patient procedure site patient taken to the Ink Jet Operator where she was positioned prepped and draped in usual sterile fashion. Timeout was performed, sedation administered Versed and fentanyl. Skin surrounding the tunnel from the catheter exit point to the cuff was anesthetized with 1% lidocaine. 11 blade was then used to make counterincision over the cuff and blunt dissection used to dissect the cuff free from the adjacent connective tissue. The catheter was then withdrawn and manual pressure held over the IJ access site until hemostasis was obtained. The counterincision was then closed with 4-0 Monocryl and Dermabond. Dry sterile dressing was then applied the patient taken to the recovery area with plan discharged home. Surgical Findings: See above Complications Complications: No
== END 2024-06-19 13:50 | disposition home or self-care (01) ==
PROVIDERS: PCP Internal Medicine; Referring Provider Surgery Trauma Surgery; Visit Provider Surgery Trauma Surgery
DX: I12.0 Hypertensive chronic kidney disease with stage 5 chronic kidney disease or end stage renal disease (principal); N18.6 End stage renal disease; Z99.2 Dependence on renal dialysis; E78.00 Pure hypercholesterolemia, unspecified; Z79.899 Other long term (current) drug therapy; Z79.82 Long term (current) use of aspirin
CPT/HCPCS: 36589; 99152; 99153